=== PATIENT | female | born 1940 | race Caucasian/White ===

== ENCOUNTER 2021-10-28 12:51 | Inpatient (IN) | payer MEDICARE, BC ==
[~2021-10-28] VITALS: Ht 167.6 cm; Wt 80.1 kg
[2021-10-28] MEDS ORDERED: LEVO125T PO (13:23)
[2021-10-28] MEDS ORDERED: CYAN100T44 PO (13:23)
[2021-10-28] MEDS ORDERED: AMIT10TA7 PO (13:23)
[2021-10-28] MEDS ORDERED: SOLI10TA2 PO (13:23)
[2021-10-28] MEDS ORDERED: MV-M1TAB18 PO (13:23)
[2021-10-28] MEDS ORDERED: MIRA50TA PO (13:23)
[2021-10-28] MEDS ORDERED: DONE10TA44 PO (13:23)
[2021-10-28] MEDS ORDERED: ROSU20TA2 PO (13:23)
[2021-10-28] MEDS ORDERED: HYDR12.517 PO (13:23)
[2021-10-28] MEDS ORDERED: INSU100V7 SQ (13:23)
[2021-10-28] MEDS ORDERED: METF-440 PO (13:23)
[2021-10-28] MEDS ORDERED: POTA10CA43 PO (13:23)
[2021-10-28] MEDS ORDERED: VALP250S3 PO (13:23)
[2021-10-28] MEDS ORDERED: CLOP75TA15 PO (13:23)
[2021-10-28] MEDS ORDERED: MEMA10TA PO (13:23)
[2021-10-28] MEDS ORDERED: CIPR-262 PO (13:23)
[2021-10-28] MEDS ORDERED: SITA50TA PO (13:23)
[2021-10-28 14:00] LABS: HEMATOCRIT 36.3 % (31.2-41.9); MEAN CORPUSCULAR HEMOGLOBIN 30.9 uug (24.7-32.8); MEAN CORPUSCULAR VOLUME 89.3 fL (75.5-95.3); PLATELET COUNT (AUTO) 439 K/uL (179-408)
[2021-10-28 14:04] LABS: CREATININE 0.8 mg/dL (0.6-1.3)
[2021-10-28] MEDS ORDERED: IV NORMAL SALINE 1000 ML BAG IV ONE (14:15)
[2021-10-28 14:20] LABS: BILIRUBIN,TOTAL 0.8 mg/dL (0.2-1.0); TOTAL PROTEIN, SERUM 6.9 g/dL (6.4-8.2)
--- NOTE | 2021-10-28 14:50 | NUR ---
Attempted to call spouse, no answer. Left message. Spouse called back. Information collected and forwarded to provider. Pt awakens to command but continues to feel "really tired". Pt saturation decrease on RA. Placed on 2L O2, per provider.
--- NOTE | 2021-10-28 15:32 | NUR ---
Pt responding well to O2, 96% on 2L NC.
[2021-10-28] MEDS ORDERED: LEVOTHYROXINE SODIUM 100 MCG VIAL IV ONE (16:00)
[2021-10-28] MEDS ORDERED: SWABABLE VALVE TRANSFER SET EA MC ONE (16:27)
[2021-10-28] MEDS ORDERED: IV NORMAL SALINE 250 ML IV ONE (16:27)
[2021-10-28] MEDS ORDERED: IOHEXOL 350 100 ML INFUS..BTL ONE (16:27)
[2021-10-28] MEDS ORDERED: PIPERACILLIN SODIUM/TAZOBACTAM 3.375 G in IV DEXTROSE 5% 50 ML IV ONE (16:30)
--- NOTE | 2021-10-28 17:10 | NUR ---
Pt taken for CT scan via gurney by antoni. Pt stable and in no acute distress at this time.
[2021-10-28] MEDS ORDERED: PIPERACILLIN/TAZOBACTAM/D5W 50 ML IV ONE (17:26)
[2021-10-28 17:30] LABS: *BILIRUBIN,URIN NEGATIVE (NEGATIVE); *CLARITY,URINE TURBID (CLEAR); *COLOR,URINE Brown (YELLOW); *KETONES,URINE NEGATIVE (NEGATIVE); *UROBILINOGEN,URINE 0.2 E.U./dl (NORMAL); LEUKOCYTE ESTERASE ,URINE TRACE (NEGATIVE); NITRITE, URINE POSITIVE (NEGATIVE); PH,URINE >=9.0 (5.0-8.0); UGLUCOSE NEGATIVE (NEGATIVE)
[2021-10-28 17:32] LABS: *BLOOD, URINE TRACE (NEGATIVE)
[2021-10-28 18:02] LABS: BACTERIA,URINE MANY /HPF (NONE SEEN); SQUAMOUS EPITHELIAL CELL,UR FEW /HPF (NONE SEEN)
[2021-10-28 18:03] LABS: RBC,URINE 0-3 /HPF (0-3)
[2021-10-28] MEDS: CEFTRIAXONE 1 G in IV DEXTROSE 5% 50 ML IV SCH (20:10)
[2021-10-28] MEDS ORDERED: CEFTRIAXONE /D5W 50ML IVPB **ER PYXIS IV ONE (20:12)
[2021-10-28] MEDS ORDERED: ONDANSETRON 4 MG/2 ML VIAL IV PRN (22:00)
[2021-10-28] MEDS ORDERED: ACETAMINOPHEN 325 MG TABLET PO PRN (22:00)
--- NOTE | 2021-10-29 00:36 | NUR ---
Pt in bed asleep no distress noted
--- NOTE | 2021-10-29 03:52 | NUR ---
Pt awake in bed, no acute distress noted
[2021-10-29 06:19] LABS: HEMATOCRIT 36.7 % (31.2-41.9); MEAN CORPUSCULAR HEMOGLOBIN 30.5 uug (24.7-32.8); MEAN CORPUSCULAR VOLUME 90.1 fL (75.5-95.3); PLATELET COUNT (AUTO) 429 K/uL (179-408)
[2021-10-29 06:52] LABS: BILIRUBIN,TOTAL 0.6 mg/dL (0.2-1.0); CREATININE 0.8 mg/dL (0.6-1.3); MAGNESIUM 2.2 mg/dL (1.8-2.4); PHOSPHOROUS 3.6 mg/dL (2.5-4.9); POTASSIUM 2.9 mmol/L (3.5-5.1); TOTAL PROTEIN, SERUM 6.5 g/dL (6.4-8.2)
[2021-10-29] MEDS: LEVOTHYROXINE SODIUM 125 MCG TABLET PO SCH (07:00)
--- NOTE | 2021-10-29 07:20 | NUR ---
Pt received from bar machine operator production in no acute distress at this time. Pt is awake and aware of self and where she is, unaware of date and situation . Pt needs met.
[2021-10-29 07:29] LABS: THYROID STIMULATING HORMONE 8.54 mIU/mL (0.358-3.740)
[2021-10-29] MEDS ORDERED: CYANOCOBALAMIN 1,000 MCG TABLET ONE (07:49)
[2021-10-29] MEDS: CLOPIDOGREL 75 MG TABLET PO SCH (07:49)
[2021-10-29] MEDS: PANTOPRAZOLE SODIUM 40 MG TABLET.DR PO SCH (07:49)
[2021-10-29] MEDS ORDERED: CLOPIDOGREL 75 MG TABLET ONE (07:50)
[2021-10-29] MEDS ORDERED: PANTOPRAZOLE SODIUM 40 MG TABLET.DR PO ONE (07:50)
[2021-10-29] MEDS ORDERED: POTASSIUM CHLORIDE 10 MEQ TAB.PRT.SR ONE (07:50)
--- NOTE | 2021-10-29 07:53 | NUR ---
Pt was able to swallow PO medications without issue.
[2021-10-29] MEDS: LINAGLIPTIN 5 MG TABLET PO SCH (09:00)
[2021-10-29] MEDS: CHOLECALCIFEROL 1,000 UNIT TABLET PO SCH (09:00)
[2021-10-29] MEDS ORDERED: CYANOCOBALAMIN 100 MCG TABLET PO SCH (09:00)
[2021-10-29] MEDS: OXYBUTYNIN CHLORIDE 5 MG TABLET PO SCH ×3 (09:00→17:50)
[2021-10-29] MEDS: VALPROIC ACID 250 MG/5 ML LIQUID UDC PO SCH ×2 (09:00→21:29)
[2021-10-29] MEDS ORDERED: Medication Not On Formulary EA (Solifenacin Succinate (Vesicare) 1 TAB) PO SCH (09:00)
[2021-10-29] MEDS ORDERED: POTASSIUM CHLORIDE 10 MEQ TAB.PRT.SR PO SCH (09:00)
[2021-10-29] MEDS ORDERED: Medication Not On Formulary EA (Mv-Mn/Iron/FA/Herbal Cmplx#190 (Vitamin D3 Complete Capl PO SCH (09:00)
[2021-10-29] MEDS ORDERED: LEVOTHYROXINE SODIUM 125 MCG TABLET ONE (10:19)
[2021-10-29] MEDS ORDERED: OXYBUTYNIN CHLORIDE 5 MG TABLET ONE ×3 (10:31→17:59)
[2021-10-29] MEDS ORDERED: CHOLECALCIFEROL 1,000 UNIT TABLET ONE (10:31)
--- NOTE | 2021-10-29 10:40 | NUR ---
Spouse is at bedside. Pt refused breakfast tray earlier. Stated wanting to wait for spouse. Spouse at bedside, pt continues to refuse meal. In no acute distress at this time.
[2021-10-29] MEDS ORDERED: METF-494 PO (10:49)
--- NOTE | 2021-10-29 12:00 | NUR ---
recieved pt in bed, pt deneis any complain at this point, no sign of distress, at bedside
[2021-10-29] MEDS: ENOXAPARIN SODIUM 40 MG/0.4 ML DISP.SYRIN SQ SCH (14:49)
[2021-10-29] MEDS ORDERED: ENOXAPARIN SODIUM 40 MG/0.4 ML DISP.SYRIN SQ ONE (14:54)
[2021-10-29] MEDS: POTASSIUM CHLORIDE 20 MEQ POWDER PACKET PO SCH (17:50)
[2021-10-29] MEDS ORDERED: POTASSIUM CHLORIDE 20 MEQ POWDER PACKET ONE (17:59)
[2021-10-29] MEDS ORDERED: Medication Not On Formulary EA (Rosuvastatin Calcium (Crestor) 1 TAB) PO SCH (18:00)
[2021-10-29] MEDS: CEFTRIAXONE 1 G in IV DEXTROSE 5% 50 ML IV SCH (20:22)
[2021-10-29] MEDS ORDERED: CEFTRIAXONE /D5W 50ML IVPB **ER PYXIS IV ONE (20:24)
[2021-10-29] MEDS ORDERED: AMITRIPTYLINE HCL 10 MG TABLET ONE (20:43)
[2021-10-29] MEDS ORDERED: DOCUSATE SODIUM 100 MG CAPSULE PO ONE (20:43)
[2021-10-29] MEDS ORDERED: ATORVASTATIN 40 MG TABLET ONE (20:43)
[2021-10-29] MEDS ORDERED: DOCUSATE SODIUM 250 MG CAPSULE PO SCH (21:00)
[2021-10-29] MEDS: DOCUSATE SODIUM 100 MG CAPSULE PO SCH (21:13)
[2021-10-29] MEDS: AMITRIPTYLINE HCL 10 MG TABLET PO SCH (21:14)
[2021-10-29] MEDS: ATORVASTATIN 40 MG TABLET PO SCH (21:14)
--- NOTE | 2021-10-29 21:58 | NUR ---
GAVE REPORT TO
--- NOTE | 2021-10-29 22:35 | NUR ---
Admitted a 81 years old female with Dx of AMS, TIA and Hypothyroidism. Patient AAox1-2, able to answer simple question. Speech garbled. In no acute distress. Denies any SOB. On O2 at 3LPM via NC in place. O2 sat at 99% during admission. Lung sound diminished. Has pain on left knee with movement that goes away quickly with immobility. Iv site on right AC intact and patent. SR with PAC's on tele with HR of 76/min. Noted with redness on bilateral under breast area, right hip area and sacrum. Routine admission care done. Plan of care initiated. Safety measure initiated and call light within reached. Continue to monitor.
--- NOTE | 2021-10-29 22:42 | NUR ---
Pt. admitted to tele , under care of Dr. Bonilla Belongs List completed
[2021-10-30 00:22] VITALS: BP 130/64
[2021-10-30 04:07] VITALS: BP 146/47
[2021-10-30] MEDS: PANTOPRAZOLE SODIUM 40 MG TABLET.DR PO SCH (06:08)
[2021-10-30] MEDS: LEVOTHYROXINE SODIUM 125 MCG TABLET PO SCH (06:09)
[2021-10-30 06:28] LABS: MEAN CORPUSCULAR VOLUME 89.4 fL (75.5-95.3); PLATELET COUNT (AUTO) 404 K/uL (179-408)
--- NOTE | 2021-10-30 06:30 | NUR ---
Patient slept soundly throughout the night. On 3L nasal cannula saturating 97%. Sinus rhythm with ventricular bigeminy and occasional PAC on tele monitor. Right AC IV intact and patent. No signs of pain or distress. All needs attended to and met. Bed in the lowest position, bed alarm on, call light within reach.
[2021-10-30 07:03] LABS: CREATININE 0.8 mg/dL (0.6-1.3); MAGNESIUM 2.1 mg/dL (1.8-2.4); PHOSPHOROUS 3.3 mg/dL (2.5-4.9); POTASSIUM 3.2 mmol/L (3.5-5.1)
[2021-10-30] MEDS: CHOLECALCIFEROL 1,000 UNIT TABLET PO SCH (08:26)
[2021-10-30] MEDS: CYANOCOBALAMIN 1,000 MCG TABLET PO SCH (08:26)
[2021-10-30] MEDS: LINAGLIPTIN 5 MG TABLET PO SCH (08:26)
[2021-10-30] MEDS: VALPROIC ACID 250 MG/5 ML LIQUID UDC PO SCH ×2 (08:26→20:15)
[2021-10-30] MEDS: OXYBUTYNIN CHLORIDE 5 MG TABLET PO SCH ×3 (08:26→17:37)
[2021-10-30] MEDS: POTASSIUM CHLORIDE 20 MEQ POWDER PACKET PO SCH ×2 (08:26→17:37)
[2021-10-30] MEDS: CLOPIDOGREL 75 MG TABLET PO SCH (08:26)
[2021-10-30] MEDS: ENOXAPARIN SODIUM 40 MG/0.4 ML DISP.SYRIN SQ SCH (08:31)
[2021-10-30] MEDS ORDERED: POTASSIUM CHLORIDE 20 MEQ POWDER PACKET PO ONE (09:30)
[2021-10-30] MEDS: POTASSIUM CHLORIDE 50 ML IV SCH ×2 (11:38→13:02)
[2021-10-30 12:47] VITALS: BP 118/52
--- NOTE | 2021-10-30 15:24 | NUR ---
CAM Clinical Note: Pt reported to CAM that she will not be able to return home to [address] [place] [id number] due to possibly needing more care. Pt reported "No" when asked if her will be able to provide care for her after discharge. Pt reported she will need a nursing facility upon discharge for continuation of care. Pt's is [facility] ([phone]).
[2021-10-30 16:26] VITALS: BP 136/64
[2021-10-30] MEDS ORDERED: METFORMIN HCL 500 MG TABLET PO SCH (18:00)
[2021-10-30] MEDS: METFORMIN XR 500 MG TAB.SR.24H PO SCH (18:00)
--- NOTE | 2021-10-30 18:25 | NUR ---
metformin held, due to patient having a cta on 10/28.
--- NOTE | 2021-10-30 18:35 | NUR ---
relayed message to Padmini Lang of [facility] wanting to speak to him.
--- NOTE | 2021-10-30 19:30 | NUR ---
Received patient in bed. Alert and oriented x1 confused, able to follow commands. On 3L nasal cannula saturating 95%. Sinus rhythm on tele monitor. Right AC IV intact and patent. No signs of pain or distress. Bed in the lowest position, bed alarm on, call light within reach. Will continue to monitor. Addendum: 10/30/21 at 2110 by CHECO JENNINGS RN Patient on Med Surg, off tele monitor
[2021-10-30 20:00] VITALS: BP 106/54
[2021-10-30] MEDS: ATORVASTATIN 40 MG TABLET PO SCH (20:15)
[2021-10-30] MEDS: CEFTRIAXONE 1 G in IV DEXTROSE 5% 50 ML IV SCH (20:15)
[2021-10-30] MEDS: DOCUSATE SODIUM 100 MG CAPSULE PO SCH (20:15)
[2021-10-30] MEDS: AMITRIPTYLINE HCL 10 MG TABLET PO SCH (20:15)
[2021-10-31 04:34] VITALS: BP_SYST 116; BP_SYST 124; BP_DIAS 62; BP_DIAS 74
[2021-10-31] MEDS: PANTOPRAZOLE SODIUM 40 MG TABLET.DR PO SCH (06:00)
[2021-10-31] MEDS: LEVOTHYROXINE SODIUM 125 MCG TABLET PO SCH (06:00)
--- NOTE | 2021-10-31 06:31 | NUR ---
Patient slept well through out the night. Appears comfortable. Denies any pain or SOB. O2 at 3LPM via NC. O2 sat at 94%. Occasional non-productive cough. No adverse effect noted from IV antibiotic. IV site on right AC remains intact and patent. Needs assessed and attended to. Safety measure maintained and call light within reached.
[2021-10-31 06:40] LABS: HEMATOCRIT 33.9 % (31.2-41.9); MEAN CORPUSCULAR HEMOGLOBIN 30.7 uug (24.7-32.8); MEAN CORPUSCULAR VOLUME 90.2 fL (75.5-95.3); PLATELET COUNT (AUTO) 412 K/uL (179-408)
[2021-10-31 07:07] LABS: CREATININE 0.8 mg/dL (0.6-1.3); MAGNESIUM 1.9 mg/dL (1.8-2.4); PHOSPHOROUS 3.1 mg/dL (2.5-4.9); POTASSIUM 3.7 mmol/L (3.5-5.1)
[2021-10-31] MEDS: VALPROIC ACID 250 MG/5 ML LIQUID UDC PO SCH ×2 (08:08→21:00)
[2021-10-31] MEDS: OXYBUTYNIN CHLORIDE 5 MG TABLET PO SCH ×3 (08:08→17:25)
[2021-10-31] MEDS: LINAGLIPTIN 5 MG TABLET PO SCH (08:08)
[2021-10-31] MEDS: POTASSIUM CHLORIDE 20 MEQ POWDER PACKET PO SCH ×2 (08:08→17:25)
[2021-10-31] MEDS: CHOLECALCIFEROL 1,000 UNIT TABLET PO SCH (08:08)
[2021-10-31] MEDS: CYANOCOBALAMIN 1,000 MCG TABLET PO SCH (08:08)
[2021-10-31] MEDS: CLOPIDOGREL 75 MG TABLET PO SCH (08:08)
[2021-10-31] MEDS: ENOXAPARIN SODIUM 40 MG/0.4 ML DISP.SYRIN SQ SCH (08:09)
[2021-10-31] MEDS ORDERED: MEMANTINE HCL 10 MG TABLET PO SCH (10:45)
[2021-10-31 11:00] VITALS: BP 115/68
--- NOTE | 2021-10-31 11:56 | NUR ---
WOUND CARE CONSULT: PT PRESENTS WITH RT HIP BLANCHABLE REDNESS AND SACRAL/BUTTOCK SCARRING WITH INCONTINENCE ASSOCIATED SKIN DAMAGE OVER SCARRING, PRESENT ON ADMISSION. RECOMMENDATIONS MADE FOR SKIN PROTECTION AND CARE. DISCUSSED WITH NURSING STAFF. IN AGREEMENT WITH PLAN OF CARE. Addendum: 10/31/21 at 1157 by DOUGLAS PINON RN Amended: Links added.
[2021-10-31] MEDS ORDERED: REMEDY ESSENTIAL ZINC PASTE 113 GM TOP PRN (12:00)
--- NOTE | 2021-10-31 16:11 | NUR ---
REQUESTED NEURO CONSULT AND HIP XRAY, HERBERT FOREMAN MADE AWARE, WITH NEW ORDER FOR NEURO CONSULT AND HIP XRAY, NOTED AND CARRIED OUT.
[2021-10-31 17:10] VITALS: BP 107/86
[2021-10-31] MEDS: MEMANTINE HCL 10 MG TABLET PO SCH (17:25)
[2021-10-31] MEDS: DONEPEZIL 10 MG TABLET PO SCH (17:26)
[2021-10-31] MEDS: METFORMIN XR 500 MG TAB.SR.24H PO SCH (18:05)
--- NOTE | 2021-10-31 19:30 | NUR ---
Received patient asleep in bed. Hard to arouse at this time. Appears calm and comfortable. In no apparent distress. On O2 at 3LPM via NC in place. O2 sat at 94% at this time. IV site on right AC intact and patent. Needs assessed and anticipated to. Safety measure initiated and call light within reached.
[2021-10-31] MEDS: CEFTRIAXONE 1 G in IV DEXTROSE 5% 50 ML IV SCH (19:59)
[2021-10-31 20:00] VITALS: BP 110/55
[2021-10-31] MEDS: DOCUSATE SODIUM 100 MG CAPSULE PO SCH (21:00)
[2021-10-31] MEDS: QUETIAPINE FUMARATE 25 MG TABLET PO SCH (21:00)
[2021-10-31] MEDS: AMITRIPTYLINE HCL 10 MG TABLET PO SCH (21:00)
[2021-10-31] MEDS: ATORVASTATIN 40 MG TABLET PO SCH (21:00)
[2021-10-31] MEDS: REMEDY ESSENTIAL ZINC PASTE 113 GM TOP SCH (21:53)
--- NOTE | 2021-10-31 21:53 | NUR ---
Patient still very sleepy. Arouse to painful stimuli but goes back to sleep right away. Unable to take due meds for tonight.
[2021-11-01 04:00] VITALS: BP 130/62
[2021-11-01] MEDS: PANTOPRAZOLE SODIUM 40 MG TABLET.DR PO SCH (06:23)
[2021-11-01] MEDS: LEVOTHYROXINE SODIUM 125 MCG TABLET PO SCH (06:23)
--- NOTE | 2021-11-01 06:32 | NUR ---
Patient slept through out the night. Easily arouseable this morning. Verbal and able to follow commands. In no apparent distress. O2 sat at 95%. No adverse effect noted from IV antibiotics.
[2021-11-01 07:45] LABS: HEMATOCRIT 36.5 % (31.2-41.9); MEAN CORPUSCULAR VOLUME 90.5 fL (75.5-95.3); PLATELET COUNT (AUTO) 408 K/uL (179-408)
[2021-11-01] MEDS: POTASSIUM CHLORIDE 20 MEQ POWDER PACKET PO SCH ×2 (08:51→17:30)
[2021-11-01] MEDS: VALPROIC ACID 250 MG/5 ML LIQUID UDC PO SCH ×2 (08:51→20:03)
[2021-11-01] MEDS: MEMANTINE HCL 10 MG TABLET PO SCH ×2 (08:52→17:30)
[2021-11-01] MEDS: LINAGLIPTIN 5 MG TABLET PO SCH (08:52)
[2021-11-01] MEDS: CYANOCOBALAMIN 1,000 MCG TABLET PO SCH (08:52)
[2021-11-01] MEDS: CLOPIDOGREL 75 MG TABLET PO SCH (08:52)
[2021-11-01] MEDS: OXYBUTYNIN CHLORIDE 5 MG TABLET PO SCH ×3 (08:52→17:30)
[2021-11-01] MEDS: CHOLECALCIFEROL 1,000 UNIT TABLET PO SCH (08:52)
[2021-11-01] MEDS: REMEDY ESSENTIAL ZINC PASTE 113 GM TOP SCH ×2 (08:53→20:03)
[2021-11-01 09:00] LABS: CREATININE 0.8 mg/dL (0.6-1.3); MAGNESIUM 2.4 mg/dL (1.8-2.4); PHOSPHOROUS 3.5 mg/dL (2.5-4.9); POTASSIUM 3.6 mmol/L (3.5-5.1)
[2021-11-01] MEDS: ENOXAPARIN SODIUM 40 MG/0.4 ML DISP.SYRIN SQ SCH (09:04)
[2021-11-01 11:25] VITALS: BP 115/62
[2021-11-01 15:21] VITALS: BP 130/53
[2021-11-01] MEDS: DONEPEZIL 10 MG TABLET PO SCH (17:30)
[2021-11-01] MEDS: METFORMIN XR 500 MG TAB.SR.24H PO SCH (17:41)
[2021-11-01] MEDS: CEFTRIAXONE 1 G in IV DEXTROSE 5% 50 ML IV SCH (19:50)
--- NOTE | 2021-11-01 20:00 | NUR ---
NSG; Received patient lying in bed. Alert and oriented x1 confused, able to follow commands. On 3L nasal cannula saturating 96%. Right AC IV intact and patent. No signs of pain or distress. NO sob noted. Bed in the lowest position, bed alarm on, call light within reach. Will continue to monitor.
[2021-11-01] MEDS: QUETIAPINE FUMARATE 25 MG TABLET PO SCH (20:02)
[2021-11-01] MEDS: AMITRIPTYLINE HCL 10 MG TABLET PO SCH (20:02)
[2021-11-01] MEDS: ATORVASTATIN 40 MG TABLET PO SCH (20:02)
[2021-11-01] MEDS: DOCUSATE SODIUM 100 MG CAPSULE PO SCH (20:15)
[2021-11-01 20:38] VITALS: BP 100/57
[2021-11-02 04:52] VITALS: BP 134/40
--- NOTE | 2021-11-02 05:26 | NUR ---
NSG; Patient slept well through the night. Denies any pain or SOB. O2 at 3LPM via NC. O2 sat at 96%. No adverse effect noted from IV antibiotic. IV site on right not working. midline placement ordered.Needs assessed and attended to. Safety measure maintained and call light within reached.
[2021-11-02] MEDS: PANTOPRAZOLE SODIUM 40 MG TABLET.DR PO SCH (06:00)
[2021-11-02] MEDS: LEVOTHYROXINE SODIUM 125 MCG TABLET PO SCH (06:00)
--- NOTE | 2021-11-02 06:01 | NUR ---
patient c/o gen: pain. tylenol 650 mg po given.
[2021-11-02 08:11] LABS: HEMATOCRIT 36.2 % (31.2-41.9); MEAN CORPUSCULAR HEMOGLOBIN 30.8 uug (24.7-32.8); MEAN CORPUSCULAR VOLUME 90.7 fL (75.5-95.3); PLATELET COUNT (AUTO) 433 K/uL (179-408)
[2021-11-02 08:20] LABS: CREATININE 0.9 mg/dL (0.6-1.3); MAGNESIUM 2.2 mg/dL (1.8-2.4); PHOSPHOROUS 3.4 mg/dL (2.5-4.9); POTASSIUM 3.2 mmol/L (3.5-5.1)
[2021-11-02] MEDS: POTASSIUM CHLORIDE 20 MEQ POWDER PACKET PO SCH ×2 (08:40→17:08)
[2021-11-02] MEDS: CLOPIDOGREL 75 MG TABLET PO SCH (08:40)
[2021-11-02] MEDS: LINAGLIPTIN 5 MG TABLET PO SCH (08:40)
[2021-11-02] MEDS: VALPROIC ACID 250 MG/5 ML LIQUID UDC PO SCH ×2 (08:40→21:13)
[2021-11-02] MEDS: OXYBUTYNIN CHLORIDE 5 MG TABLET PO SCH ×3 (08:41→17:07)
[2021-11-02] MEDS: MEMANTINE HCL 10 MG TABLET PO SCH ×2 (08:41→17:07)
[2021-11-02] MEDS: CYANOCOBALAMIN 1,000 MCG TABLET PO SCH (08:41)
[2021-11-02] MEDS: CHOLECALCIFEROL 1,000 UNIT TABLET PO SCH (08:41)
[2021-11-02] MEDS: REMEDY ESSENTIAL ZINC PASTE 113 GM TOP SCH ×2 (08:42→21:14)
[2021-11-02] MEDS: ENOXAPARIN SODIUM 40 MG/0.4 ML DISP.SYRIN SQ SCH (08:42)
[2021-11-02] MEDS ORDERED: POTASSIUM CHLORIDE 20 MEQ TAB.PRT.SR PO ONE (09:15)
[2021-11-02] MEDS ORDERED: POTASSIUM CHLORIDE 20 MEQ POWDER PACKET PO ONE ×2 (09:30)
[2021-11-02 11:26] VITALS: BP 108/67
--- NOTE | 2021-11-02 14:19 | NUR ---
Received patient sleeping in her room. A/O X 1 -2 to person. Pt. is forgetful, confused, cooperative. Compliant with medication. Incontinent. Total care. Cardiac diet. Redness on buttocks, cream barrier applied as prescribed. Fall and safety precautions implemented.
[2021-11-02 15:06] VITALS: BP 103/59
--- NOTE | 2021-11-02 15:33 | NUR ---
Iam started IV midline in patient right upper arm.
[2021-11-02] MEDS: METFORMIN XR 500 MG TAB.SR.24H PO SCH (17:07)
[2021-11-02] MEDS: DONEPEZIL 10 MG TABLET PO SCH (17:07)
[2021-11-02] MEDS: ATORVASTATIN 40 MG TABLET PO SCH (21:13)
[2021-11-02] MEDS: DOCUSATE SODIUM 100 MG CAPSULE PO SCH (21:13)
[2021-11-02] MEDS: CEFTRIAXONE 1 G in IV DEXTROSE 5% 50 ML IV SCH (21:13)
[2021-11-02] MEDS: QUETIAPINE FUMARATE 25 MG TABLET PO SCH (21:13)
[2021-11-02] MEDS: AMITRIPTYLINE HCL 10 MG TABLET PO SCH (21:13)
[2021-11-02 21:55] VITALS: BP 102/52
--- NOTE | 2021-11-03 05:28 | NUR ---
Pt had fall at beginning of shift before this nurse got report for patient from the day shift. Pt was assessed and there were no injuries found. Nursing Manager Of Program Arelis notified and Padmini Rea MARINE FITTER notified with no new orders. Pt is awake and anxious and confused. Denies pain. No distress noted. IV site intact. Will endorse to day shift.
[2021-11-03 05:34] VITALS: BP 120/55
[2021-11-03] MEDS: PANTOPRAZOLE SODIUM 40 MG TABLET.DR PO SCH (06:35)
[2021-11-03] MEDS: LEVOTHYROXINE SODIUM 125 MCG TABLET PO SCH (06:35)
[2021-11-03 08:09] LABS: HEMATOCRIT 37.8 % (31.2-41.9); MEAN CORPUSCULAR HEMOGLOBIN 30.2 uug (24.7-32.8); MEAN CORPUSCULAR VOLUME 91.5 fL (75.5-95.3); PLATELET COUNT (AUTO) 430 K/uL (179-408)
[2021-11-03 08:33] LABS: CREATININE 0.8 mg/dL (0.6-1.3); MAGNESIUM 2.3 mg/dL (1.8-2.4); PHOSPHOROUS 3.4 mg/dL (2.5-4.9); POTASSIUM 3.3 mmol/L (3.5-5.1)
[2021-11-03] MEDS: VALPROIC ACID 250 MG/5 ML LIQUID UDC PO SCH ×2 (08:56→20:15)
[2021-11-03] MEDS: CHOLECALCIFEROL 1,000 UNIT TABLET PO SCH (08:56)
[2021-11-03] MEDS: CYANOCOBALAMIN 1,000 MCG TABLET PO SCH (08:56)
[2021-11-03] MEDS: POTASSIUM CHLORIDE 20 MEQ POWDER PACKET PO SCH ×2 (08:57→17:02)
[2021-11-03] MEDS: OXYBUTYNIN CHLORIDE 5 MG TABLET PO SCH ×3 (08:57→17:02)
[2021-11-03] MEDS: CLOPIDOGREL 75 MG TABLET PO SCH (08:57)
[2021-11-03] MEDS: MEMANTINE HCL 10 MG TABLET PO SCH ×2 (08:58→17:02)
[2021-11-03] MEDS: LINAGLIPTIN 5 MG TABLET PO SCH (08:58)
--- NOTE | 2021-11-03 09:00 | NUR ---
pt tolerating o2 at r/a with saturation of 96%. PT denies any c/o pain. Pt alert x [address] reorient patient to time. Right upper midline intact. Aspiration precaution implemented.
[2021-11-03] MEDS: ENOXAPARIN SODIUM 40 MG/0.4 ML DISP.SYRIN SQ SCH (09:05)
[2021-11-03] MEDS: REMEDY ESSENTIAL ZINC PASTE 113 GM TOP SCH ×2 (09:06→20:28)
[2021-11-03 11:11] VITALS: BP 105/47
[2021-11-03] MEDS ORDERED: POTASSIUM CHLORIDE 20 MEQ POWDER PACKET PO ONE (12:00)
[2021-11-03 15:09] VITALS: BP 117/58
[2021-11-03] MEDS: DONEPEZIL 10 MG TABLET PO SCH (17:02)
[2021-11-03] MEDS: METFORMIN XR 500 MG TAB.SR.24H PO SCH (17:04)
[2021-11-03] MEDS: GLUCERNA SHAKE VANILLA 237 ML CAN PO SCH (17:06)
--- NOTE | 2021-11-03 18:54 | NUR ---
Noted that pt coughs after drinking water with straws x 2 episodes even with proper aspiration precaution. Will endorse to next shift not to use straws.
[2021-11-03] MEDS: ATORVASTATIN 40 MG TABLET PO SCH (20:15)
[2021-11-03] MEDS: AMITRIPTYLINE HCL 10 MG TABLET PO SCH (20:15)
[2021-11-03] MEDS: DOCUSATE SODIUM 100 MG CAPSULE PO SCH (20:15)
[2021-11-03] MEDS: QUETIAPINE FUMARATE 25 MG TABLET PO SCH (20:15)
[2021-11-03 21:38] VITALS: BP 121/63
[2021-11-04 04:15] VITALS: BP 122/66
[2021-11-04] MEDS: LEVOTHYROXINE SODIUM 125 MCG TABLET PO SCH (06:09)
[2021-11-04] MEDS: PANTOPRAZOLE SODIUM 40 MG TABLET.DR PO SCH (06:09)
--- NOTE | 2021-11-04 07:01 | NUR ---
AO x 1, to name. Needs to be reoriented. Confused and forgetful. Able to verbalize needs. On room air saturating at 99%. No signs of acute distress. Medication crushed and given. Aspiration precautions. Compliant with medication regimen. MOISES midline intact and patent. Safety measures maintained. Will endorse to am shift.
[2021-11-04 07:10] LABS: HEMATOCRIT 36.4 % (31.2-41.9); MEAN CORPUSCULAR HEMOGLOBIN 30.4 uug (24.7-32.8); MEAN CORPUSCULAR VOLUME 91.6 fL (75.5-95.3); PLATELET COUNT (AUTO) 482 K/uL (179-408)
[2021-11-04 07:31] LABS: CREATININE 0.8 mg/dL (0.6-1.3)
[2021-11-04 07:55] LABS: MAGNESIUM 2.3 mg/dL (1.8-2.4); PHOSPHOROUS 3.3 mg/dL (2.5-4.9)
[2021-11-04] MEDS: POTASSIUM CHLORIDE 20 MEQ POWDER PACKET PO SCH (09:00)
[2021-11-04] MEDS: CLOPIDOGREL 75 MG TABLET PO SCH (09:13)
[2021-11-04] MEDS: LINAGLIPTIN 5 MG TABLET PO SCH (09:13)
[2021-11-04] MEDS: MEMANTINE HCL 10 MG TABLET PO SCH ×2 (09:13→16:37)
[2021-11-04] MEDS: VALPROIC ACID 250 MG/5 ML LIQUID UDC PO SCH (09:13)
[2021-11-04] MEDS: OXYBUTYNIN CHLORIDE 5 MG TABLET PO SCH ×3 (09:13→16:37)
[2021-11-04] MEDS: GLUCERNA SHAKE VANILLA 237 ML CAN PO SCH ×3 (09:14→16:38)
[2021-11-04] MEDS: CYANOCOBALAMIN 1,000 MCG TABLET PO SCH (09:14)
[2021-11-04] MEDS: CHOLECALCIFEROL 1,000 UNIT TABLET PO SCH (09:14)
[2021-11-04] MEDS: REMEDY ESSENTIAL ZINC PASTE 113 GM TOP SCH (09:15)
[2021-11-04] MEDS: ENOXAPARIN SODIUM 40 MG/0.4 ML DISP.SYRIN SQ SCH (09:18)
--- NOTE | 2021-11-04 10:00 | NUR ---
Padmini saw patient awaiting response for ARU bed placement coordinator Marques ISSA if patient is accepted. PT denies any c/o pain. Call light is within reach.
[2021-11-04] MEDS ORDERED: QUETIAPINE FUMARATE 25 MG TABLET PO PRN (11:00)
[2021-11-04 11:51] VITALS: BP 116/53
[2021-11-04] MEDS ORDERED: NUT.237L28 PO (15:54)
[2021-11-04] MEDS ORDERED: ENOX40DI SQ (15:54)
[2021-11-04] MEDS ORDERED: DOCU-141 PO (15:54)
[2021-11-04] MEDS ORDERED: QUET25TA36 PO (15:54)
[2021-11-04 16:03] VITALS: BP 118/60
[2021-11-04] MEDS: METFORMIN XR 500 MG TAB.SR.24H PO SCH (16:37)
[2021-11-04] MEDS: DONEPEZIL 10 MG TABLET PO SCH (16:37)
--- NOTE | 2021-11-04 17:37 | NUR ---
Discussed discharge instructions to [facility]. Verbalized understanding. Discussed new medications that is prescribed. Follow up with primary doctor within 1 week. Pt to transfer ARU encdinorah Pt is to f/u vaccinations with her primary. PT is in no acute distress. Call light is within reach. Picture updated.
[2021-11-04] MEDS ORDERED: CHOL400C8 (21:56)
[2021-11-04] MEDS ORDERED: LINA5TAB PO (21:56)
[2021-11-04] MEDS ORDERED: ACET-2154 PO (21:56)
[2021-11-04] MEDS ORDERED: PETR113P TP (21:56)
[2021-11-04] MEDS ORDERED: OXYB5TAB16 PO (21:56)
[2021-11-04] MEDS ORDERED: PANT40TA2 PO (21:56)
[2021-11-04] MEDS ORDERED: ATOR40TA PO (21:56)
== END 2021-11-04 19:34 | DRG 689 ==
LOC: ER 12:51 → TRANSITION 10-29 09:28 → TELE3 10-29 22:05 → MEDSURG3 10-30 13:19
PROVIDERS: ADMIT Internal Medicine; ATTEND Nurse Practitioner Acute Care
PROC: 05H933Z Insertion of Infusion Device into Right Brachial Vein, Percutaneous Approach (ICD-10-PCS; principal; 2021-11-02)
DX: N39.0 Urinary tract infection, site not specified (principal); G93.41 Metabolic encephalopathy; E43 Unspecified severe protein-calorie malnutrition; D68.59 Other primary thrombophilia; F05 Delirium due to known physiological condition; E87.6 Hypokalemia; F01.50 Vascular dementia, unspecified severity, without behavioral disturbance, psychotic disturbance, mood disturbance, and anxiety; I69.398 Other sequelae of cerebral infarction; D75.839 Thrombocytosis, unspecified; Z87.440 Personal history of urinary (tract) infections; E03.9 Hypothyroidism, unspecified; E11.9 Type 2 diabetes mellitus without complications; E66.9 Obesity, unspecified; Z68.30 Body mass index [BMI] 30.0-30.9, adult; E78.5 Hyperlipidemia, unspecified; J44.9 Chronic obstructive pulmonary disease, unspecified; M16.11 Unilateral primary osteoarthritis, right hip; G89.29 Other chronic pain; I67.2 Cerebral atherosclerosis; J39.8 Other specified diseases of upper respiratory tract; G93.89 Other specified disorders of brain; I25.2 Old myocardial infarction; I49.3 Ventricular premature depolarization; Q24.8 Other specified congenital malformations of heart; Z20.822 Contact with and (suspected) exposure to COVID-19; Z79.4 Long term (current) use of insulin; Z79.84 Long term (current) use of oral hypoglycemic drugs; Z87.891 Personal history of nicotine dependence; K59.00 Constipation, unspecified
CPT/HCPCS: 36415; 51702; 70030-TC; 70450; 70551; 71045; 71275; 73521; 76775; 83605; 83735; 84100; 84443; 85025; 85730; 87040; 87086; 93005; 93307; 93880; 97161; A6209; G0378; J0696; J1650; J2543; J3480; J7030; J7040; J7050; J7060; Q9967

== ENCOUNTER 2021-11-04 19:52 | Inpatient (IN) | payer MEDICARE, BC ==
[~2021-11-04] VITALS: Ht 167.6 cm; Wt 80.3 kg
--- NOTE | 2021-11-04 19:30 | NUR ---
RECEIVED PATIENT AWAKE IN BED. PATIENT DISCHARGED AND RE-ADMITTED INPATIENT REHAB. PATIENT IS ALERT TO SELF. CONFUSED AND DISORIENTED AND NEEDS FREQUENT REDIRECTION. DENIES ANY PAIN OR DISCOMFORT. NO RESP. DISTRESS NOTED. MID-LINE NOTED TO RIGHT UPPER ARM, INTACT. VS WNL. BED ALARM ON. CALL LIGHT IN REACH. ALL NEEDS ATTENDED. WILL CONTINUE TO MONITOR AND ASSESS.
[~2021-11-04 19:52] MED LIST: AMIT10TA7 PO; CIPR-262 PO; CLOP75TA15 PO; CYAN100T44 PO; DOCU-141 PO; DONE10TA44 PO; ENOX40DI SQ; HYDR12.517 PO; INSU100V7 SQ; LEVO125T PO; MEMA10TA PO; METF-440 PO; METF-494 PO; MIRA50TA PO; MV-M1TAB18 PO; NUT.237L28 PO; POTA10CA43 PO; QUET25TA36 PO; ROSU20TA2 PO; SITA50TA PO; SOLI10TA2 PO; VALP250S3 PO
[2021-11-04 20:00] VITALS: BP_SYST 110; BP_SYST 128; BP_DIAS 49; BP_DIAS 59
[2021-11-04] MEDS ORDERED: CHOL400C8 (21:56)
[2021-11-04] MEDS ORDERED: ACET-2154 PO (21:56)
[2021-11-04] MEDS ORDERED: PETR113P TP (21:56)
[2021-11-04] MEDS ORDERED: ATOR40TA PO (21:56)
[2021-11-04] MEDS ORDERED: PANT40TA2 PO (21:56)
[2021-11-04] MEDS ORDERED: OXYB5TAB16 PO (21:56)
[2021-11-04] MEDS ORDERED: LINA5TAB PO (21:56)
[2021-11-05 04:00] VITALS: BP 122/71
[2021-11-05] MEDS ORDERED: QUETIAPINE FUMARATE 25 MG TABLET PO PRN (10:00)
[2021-11-05 12:00] VITALS: BP 107/72
[2021-11-05] MEDS: OXYBUTYNIN CHLORIDE 5 MG TABLET PO SCH ×2 (12:30→17:41)
[2021-11-05] MEDS: GLUCERNA SHAKE VANILLA 237 ML CAN PO SCH ×2 (12:30→17:41)
[2021-11-05 16:00] VITALS: BP 115/52
[2021-11-05] MEDS: AMITRIPTYLINE HCL 10 MG TABLET PO SCH (17:41)
[2021-11-05] MEDS: MEMANTINE HCL 10 MG TABLET PO SCH (17:41)
[2021-11-05] MEDS: DONEPEZIL 10 MG TABLET PO SCH (17:41)
[2021-11-05] MEDS: VALPROIC ACID 250 MG CAPSULE PO SCH (17:42)
--- NOTE | 2021-11-05 18:57 | NUR ---
The patient remained stable. no distress identified. no pain identified. turn and repositioned. kept call light within reach. all needs attended. all due meds given. will endorse to the next shift for continuity of care.
[2021-11-05 20:00] VITALS: BP 126/67
[2021-11-05] MEDS: DOCUSATE SODIUM 100 MG CAPSULE PO SCH (20:50)
[2021-11-05] MEDS: ATORVASTATIN 40 MG TABLET PO SCH (20:51)
[2021-11-05] MEDS ORDERED: ATORVASTATIN 20 MG TABLET PO SCH (21:00)
[2021-11-06 04:00] VITALS: BP_SYST 115; BP_SYST 117; BP_DIAS 48; BP_DIAS 60
--- NOTE | 2021-11-06 04:06 | NUR ---
Resting in bed upon initial rounds. AAOx1-2 Patient diagnosis was acute metabolic Encepalopthy. VSS. Needs attended. Right upper midline intact flush and patient. Will monitor patient.
[2021-11-06 06:50] LABS: HEMATOCRIT 39.4 % (31.2-41.9); MEAN CORPUSCULAR HEMOGLOBIN 30.2 uug (24.7-32.8); MEAN CORPUSCULAR VOLUME 91.4 fL (75.5-95.3); PLATELET COUNT (AUTO) 472 K/uL (179-408)
[2021-11-06] MEDS ORDERED: LEVOTHYROXINE SODIUM 125 MCG TABLET PO SCH (07:00)
[2021-11-06 07:47] LABS: BILIRUBIN,TOTAL 0.6 mg/dL (0.2-1.0); CREATININE 0.9 mg/dL (0.6-1.3); MAGNESIUM 2.1 mg/dL (1.8-2.4); PHOSPHOROUS 3.8 mg/dL (2.5-4.9); POTASSIUM 3.1 mmol/L (3.5-5.1); TOTAL PROTEIN, SERUM 7.1 g/dL (6.4-8.2)
[2021-11-06 08:00] VITALS: BP 102/60
--- NOTE | 2021-11-06 08:00 | NUR ---
Pt received resting in bed, A/O x2. Pt appears withdrawn and quiet. pt was compliant with her medications, denies pain or distress. Pt is able to state her needs. side rails are up, pt appears comfortable.
[2021-11-06 08:20] LABS: THYROID STIMULATING HORMONE 14.353 mIU/mL (0.358-3.740)
[2021-11-06] MEDS ORDERED: POTASSIUM CHLORIDE 20 MEQ TAB.PRT.SR PO ONE (08:45)
[2021-11-06] MEDS ORDERED: POTASSIUM CHLORIDE 20 MEQ POWDER PACKET PO ONE (09:00)
[2021-11-06] MEDS ORDERED: Medication Not On Formulary EA (Mirabegron (Myrbetriq) 50 MG) PO SCH (09:00)
[2021-11-06] MEDS ORDERED: Medication Not On Formulary EA (Mv-Mn/Iron/FA/Herbal Cmplx#190 (Vitamin D3 Complete Capl PO SCH (09:00)
[2021-11-06] MEDS ORDERED: Medication Not On Formulary EA (Solifenacin Succinate (Vesicare) 1 TAB) PO SCH (09:00)
[2021-11-06] MEDS ORDERED: MEMANTINE HCL 10 MG TABLET PO SCH (09:00)
[2021-11-06] MEDS ORDERED: [UNRECOGNIZED DRUG - OTHER] PO SCH (09:00)
[2021-11-06] MEDS ORDERED: MYRBETRIQ 50 MG PO SCH (09:00)
[2021-11-06] MEDS ORDERED: [UNRECOGNIZED DRUG - OTHER] PO SCH (09:00)
[2021-11-06] MEDS ORDERED: SOLIFENACIN 10 MG PO SCH (09:00)
[2021-11-06] MEDS: CLOPIDOGREL 75 MG TABLET PO SCH (09:32)
[2021-11-06] MEDS: OXYBUTYNIN CHLORIDE 5 MG TABLET PO SCH ×3 (09:32→18:13)
[2021-11-06] MEDS: MULTIVIT, IRON, MIN NO. 8, FA TABLET PO SCH (09:32)
[2021-11-06] MEDS: MEMANTINE HCL 10 MG TABLET PO SCH ×2 (09:32→18:13)
[2021-11-06] MEDS: PANTOPRAZOLE SODIUM 40 MG TABLET.DR PO SCH (09:32)
[2021-11-06] MEDS: METFORMIN XR 500 MG TAB.SR.24H PO SCH (09:33)
[2021-11-06] MEDS: VALPROIC ACID 250 MG CAPSULE PO SCH ×2 (09:33→18:13)
[2021-11-06] MEDS: GLUCERNA SHAKE VANILLA 237 ML CAN PO SCH ×3 (09:39→17:00)
[2021-11-06] MEDS: LINAGLIPTIN 5 MG TABLET PO SCH (09:39)
[2021-11-06] MEDS: ENOXAPARIN SODIUM 40 MG/0.4 ML DISP.SYRIN SQ SCH (09:42)
[2021-11-06] MEDS: CYANOCOBALAMIN 1,000 MCG TABLET PO SCH (09:56)
[2021-11-06 16:00] VITALS: BP 117/47
[2021-11-06] MEDS: DONEPEZIL 10 MG TABLET PO SCH (18:13)
[2021-11-06] MEDS: AMITRIPTYLINE HCL 10 MG TABLET PO SCH (18:13)
--- NOTE | 2021-11-06 19:45 | NUR ---
Received patient lying in bed. AAOX2. Appears withdrawn. Reoriented patient accordingly. Patient denies SOB, chest pain or dizziness. Safety measures initiated. Call light button and frequently used items within reach. Will continue to monitor.
[2021-11-06 20:00] VITALS: BP 104/52
[2021-11-06] MEDS: DOCUSATE SODIUM 100 MG CAPSULE PO SCH (20:14)
[2021-11-06] MEDS: ATORVASTATIN 40 MG TABLET PO SCH (20:14)
[2021-11-07 04:00] VITALS: BP 105/69
[2021-11-07] MEDS: LEVOTHYROXINE SODIUM 150 MCG TABLET PO SCH (06:11)
--- NOTE | 2021-11-07 07:06 | NUR ---
Patient slept through the night with no complaints. No acute distress noted at this time. Patient is compliant with medication regimen. Safety measures maintained. Will endorse to dayshift.
[2021-11-07 08:00] VITALS: BP 105/69
[2021-11-07] MEDS: MEMANTINE HCL 10 MG TABLET PO SCH ×2 (08:41→17:18)
[2021-11-07] MEDS: MULTIVIT, IRON, MIN NO. 8, FA TABLET PO SCH (08:41)
[2021-11-07] MEDS: CLOPIDOGREL 75 MG TABLET PO SCH (08:41)
[2021-11-07] MEDS: PANTOPRAZOLE SODIUM 40 MG TABLET.DR PO SCH (08:41)
[2021-11-07] MEDS: CYANOCOBALAMIN 1,000 MCG TABLET PO SCH (08:42)
[2021-11-07] MEDS: OXYBUTYNIN CHLORIDE 5 MG TABLET PO SCH ×3 (08:42→17:18)
[2021-11-07] MEDS: GLUCERNA SHAKE VANILLA 237 ML CAN PO SCH ×3 (08:46→17:19)
[2021-11-07] MEDS: VALPROIC ACID 250 MG CAPSULE PO SCH ×2 (08:50→17:18)
[2021-11-07] MEDS: METFORMIN XR 500 MG TAB.SR.24H PO SCH (08:51)
[2021-11-07] MEDS: ENOXAPARIN SODIUM 40 MG/0.4 ML DISP.SYRIN SQ SCH (08:52)
[2021-11-07] MEDS ORDERED: LORAZEPAM 0.5 MG TABLET PO PRN (09:00)
[2021-11-07] MEDS: LINAGLIPTIN 5 MG TABLET PO SCH (09:32)
--- NOTE | 2021-11-07 09:35 | NUR ---
Received patient lying in bed. AAOX2. calm, reoriented patient accordingly. Patient respirations even and unlabored no SOB noted, no c/o of chest pain or dizziness. at bed side .Safety measures in place. Call light button and frequently used items within reach bed in lowest position . Will continue to monitor.
--- NOTE | 2021-11-07 15:14 | NUR ---
INDIVIDUALIZED PLAN OF CARE
[2021-11-07] MEDS: AMITRIPTYLINE HCL 10 MG TABLET PO SCH (17:22)
[2021-11-07] MEDS: DONEPEZIL 10 MG TABLET PO SCH (17:22)
[2021-11-07 17:35] VITALS: BP 127/63
[2021-11-07 20:00] VITALS: BP 114/48
[2021-11-07] MEDS: ATORVASTATIN 40 MG TABLET PO SCH (20:40)
[2021-11-07] MEDS: DOCUSATE SODIUM 100 MG CAPSULE PO SCH (20:40)
[2021-11-08 04:00] VITALS: BP 118/57
--- NOTE | 2021-11-08 05:57 | NUR ---
Patient slept comfortably throughout the night. Alert and oriented to name, forgetful and confused at times. Becomes anxious and asks about daughter and , needs to be reoriented. Able to make needs known. On room air saturating at 95%. No signs of acute distress noted. Denies any pain or discomfort. Call lights within reach. Safety measures maintained. Will endorse to am nurse for continuity of care.
[2021-11-08] MEDS: LEVOTHYROXINE SODIUM 150 MCG TABLET PO SCH (06:16)
[2021-11-08 08:00] VITALS: BP 105/66
[2021-11-08] MEDS: CYANOCOBALAMIN 1,000 MCG TABLET PO SCH (09:00)
[2021-11-08] MEDS: MULTIVIT, IRON, MIN NO. 8, FA TABLET PO SCH (09:38)
[2021-11-08] MEDS: OXYBUTYNIN CHLORIDE 5 MG TABLET PO SCH ×3 (09:39→17:00)
[2021-11-08] MEDS: PANTOPRAZOLE SODIUM 40 MG TABLET.DR PO SCH (09:39)
[2021-11-08] MEDS: MEMANTINE HCL 10 MG TABLET PO SCH ×2 (09:39→16:56)
[2021-11-08] MEDS: LINAGLIPTIN 5 MG TABLET PO SCH (09:39)
[2021-11-08] MEDS: ENOXAPARIN SODIUM 40 MG/0.4 ML DISP.SYRIN SQ SCH (09:40)
[2021-11-08] MEDS: CLOPIDOGREL 75 MG TABLET PO SCH (09:41)
[2021-11-08] MEDS: VALPROIC ACID 250 MG CAPSULE PO SCH ×2 (09:41→16:58)
[2021-11-08] MEDS: METFORMIN XR 500 MG TAB.SR.24H PO SCH (09:42)
[2021-11-08] MEDS: GLUCERNA SHAKE VANILLA 237 ML CAN PO SCH ×3 (09:44→16:57)
[2021-11-08] MEDS: ACETAMINOPHEN 325 MG TABLET PO PRN (09:49)
--- NOTE | 2021-11-08 12:16 | NUR ---
Pt is a/ox 2-3, family at bedside. Pt walked woith PT to bathroom this am, tolerated fairly. Held morning vitamin b12 due to elevated lab values of b12. Comfort measures provided, call light within reach, will continue to monitor.
--- NOTE | 2021-11-08 13:30 | NUR ---
patient able to demo decreased assist with all mobility using fww. pt safe for bathroom transfers with fww and nursing assist as tolerated.
[2021-11-08 16:02] VITALS: BP 151/64
[2021-11-08] MEDS: AMITRIPTYLINE HCL 10 MG TABLET PO SCH (17:10)
[2021-11-08] MEDS: DONEPEZIL 10 MG TABLET PO SCH (17:10)
[2021-11-08] MEDS: diphenhydrAMINE 25 MG CAP PO PRN (17:24)
--- NOTE | 2021-11-08 18:18 | NUR ---
Pt complained of itchiness, family suspects it may be from Ditropan since it is the only new medication that she does not take at home. Notified MD, obtained order for benadryl and held 1700 dose of Ditropan per MD order. Notified family of changes and will endorse to valerio shaikh to monitor.
[2021-11-08 20:00] VITALS: BP 153/63
[2021-11-08] MEDS: DOCUSATE SODIUM 100 MG CAPSULE PO SCH (20:38)
[2021-11-08] MEDS: ATORVASTATIN 40 MG TABLET PO SCH (20:38)
--- NOTE | 2021-11-09 01:41 | NUR ---
Confused and disoriented. Kept comfortable. VSS. Needs attended. Incontinent of bowel and bladder. BM noted this shift. Will monitor patient. VSS. Patient seems depressed and very confused. Fall precautions maintained. Siderails up for safety. Will monitor patient.
[2021-11-09 04:18] VITALS: BP 127/62
[2021-11-09] MEDS: LEVOTHYROXINE SODIUM 150 MCG TABLET PO SCH (06:27)
[2021-11-09 08:24] VITALS: BP 122/58
[2021-11-09] MEDS: LINAGLIPTIN 5 MG TABLET PO SCH (09:20)
[2021-11-09] MEDS: CLOPIDOGREL 75 MG TABLET PO SCH (09:20)
[2021-11-09] MEDS: MULTIVIT, IRON, MIN NO. 8, FA TABLET PO SCH (09:21)
[2021-11-09] MEDS: MEMANTINE HCL 10 MG TABLET PO SCH ×2 (09:21→17:01)
[2021-11-09] MEDS: VALPROIC ACID 250 MG CAPSULE PO SCH ×2 (09:24→17:01)
[2021-11-09] MEDS: PANTOPRAZOLE SODIUM 40 MG TABLET.DR PO SCH (09:24)
[2021-11-09] MEDS: OXYBUTYNIN CHLORIDE 5 MG TABLET PO SCH ×3 (09:25→17:01)
[2021-11-09] MEDS: METFORMIN XR 500 MG TAB.SR.24H PO SCH (09:25)
[2021-11-09] MEDS: ENOXAPARIN SODIUM 40 MG/0.4 ML DISP.SYRIN SQ SCH (09:26)
[2021-11-09] MEDS: GLUCERNA SHAKE VANILLA 237 ML CAN PO SCH ×3 (09:33→17:01)
[2021-11-09 15:08] VITALS: BP 130/61
[2021-11-09] MEDS: DONEPEZIL 10 MG TABLET PO SCH (17:01)
[2021-11-09] MEDS: AMITRIPTYLINE HCL 10 MG TABLET PO SCH (17:01)
--- NOTE | 2021-11-09 20:12 | NUR ---
Patient in bed alert and able to make needs known in no apparent distress.Denies pain at this time. Compliant with medications.Bed alarm on.Continue safety measures. Call light with in reach.VSs.Will continue to monitor.
[2021-11-09 20:29] VITALS: BP 110/61
[2021-11-09] MEDS: DOCUSATE SODIUM 100 MG CAPSULE PO SCH (20:30)
[2021-11-09] MEDS: diphenhydrAMINE 25 MG CAP PO PRN (20:30)
[2021-11-09] MEDS: ATORVASTATIN 40 MG TABLET PO SCH (20:30)
[2021-11-10 04:16] VITALS: BP 108/67
[2021-11-10] MEDS: LEVOTHYROXINE SODIUM 150 MCG TABLET PO SCH (06:02)
[2021-11-10 07:14] LABS: HEMATOCRIT 37.4 % (31.2-41.9); MEAN CORPUSCULAR HEMOGLOBIN 30.6 uug (24.7-32.8); MEAN CORPUSCULAR VOLUME 91.8 fL (75.5-95.3); PLATELET COUNT (AUTO) 194 K/uL (179-408)
[2021-11-10 07:43] LABS: CREATININE 0.8 mg/dL (0.6-1.3); MAGNESIUM 2.3 mg/dL (1.8-2.4); PHOSPHOROUS 3.8 mg/dL (2.5-4.9); POTASSIUM 3.6 mmol/L (3.5-5.1)
[2021-11-10] MEDS: MULTIVIT, IRON, MIN NO. 8, FA TABLET PO SCH (07:46)
[2021-11-10] MEDS: CLOPIDOGREL 75 MG TABLET PO SCH (07:46)
[2021-11-10] MEDS: PANTOPRAZOLE SODIUM 40 MG TABLET.DR PO SCH (07:46)
[2021-11-10] MEDS: OXYBUTYNIN CHLORIDE 5 MG TABLET PO SCH ×3 (07:46→17:51)
[2021-11-10] MEDS: MEMANTINE HCL 10 MG TABLET PO SCH ×2 (07:46→17:53)
[2021-11-10] MEDS: VALPROIC ACID 250 MG CAPSULE PO SCH ×2 (07:48→17:56)
[2021-11-10] MEDS: GLUCERNA SHAKE VANILLA 237 ML CAN PO SCH ×3 (07:50→17:53)
[2021-11-10] MEDS: METFORMIN XR 500 MG TAB.SR.24H PO SCH (07:51)
[2021-11-10] MEDS: LINAGLIPTIN 5 MG TABLET PO SCH (07:55)
[2021-11-10] MEDS: ENOXAPARIN SODIUM 40 MG/0.4 ML DISP.SYRIN SQ SCH (07:59)
[2021-11-10 08:45] VITALS: BP 128/69
[2021-11-10] MEDS ORDERED: diphenhydrAMINE 1% CREAM 28.3 GM TUBE TP PRN (15:30)
[2021-11-10 15:48] VITALS: BP 123/57
[2021-11-10] MEDS: AMITRIPTYLINE HCL 10 MG TABLET PO SCH (17:51)
[2021-11-10] MEDS: DONEPEZIL 10 MG TABLET PO SCH (17:51)
[2021-11-10 19:58] VITALS: BP 100/59
[2021-11-10] MEDS: ATORVASTATIN 10 MG TABLET PO SCH (20:19)
[2021-11-10] MEDS: DOCUSATE SODIUM 100 MG CAPSULE PO SCH (20:19)
[2021-11-11 04:31] VITALS: BP 119/64
[2021-11-11] MEDS: LEVOTHYROXINE SODIUM 150 MCG TABLET PO SCH (06:10)
--- NOTE | 2021-11-11 07:30 | NUR ---
RECEIVED PATIENT IN BED ASLEEP AROUSES EASILY ALERT WHEN AWAKE VERBALLY RESPONDS BUT IS ALERT TO SELF WITH CONFUSSION ALL NEEDS ANTICIPATED AND SATISFIED MAX ASSIST FOR ALL ADL REPOSITIONED FOR COMFORT Q2H ON ROOM AIR WITH NO SHORTNESS OF BREATH NOT IN DISTRESS AT THIS TIME WILL CONTINUE TO OBSERVE AND PROVIDE SAFETY.
[2021-11-11 08:00] VITALS: BP 123/66
[2021-11-11] MEDS: MEMANTINE HCL 10 MG TABLET PO SCH ×2 (08:36→17:27)
[2021-11-11] MEDS: OXYBUTYNIN CHLORIDE 5 MG TABLET PO SCH ×3 (08:36→17:28)
[2021-11-11] MEDS: LINAGLIPTIN 5 MG TABLET PO SCH (08:37)
[2021-11-11] MEDS: CLOPIDOGREL 75 MG TABLET PO SCH (08:37)
[2021-11-11] MEDS: PANTOPRAZOLE SODIUM 40 MG TABLET.DR PO SCH (08:37)
[2021-11-11] MEDS: METFORMIN XR 500 MG TAB.SR.24H PO SCH (08:37)
[2021-11-11] MEDS: MULTIVIT, IRON, MIN NO. 8, FA TABLET PO SCH (08:37)
[2021-11-11] MEDS: ENOXAPARIN SODIUM 40 MG/0.4 ML DISP.SYRIN SQ SCH (08:42)
[2021-11-11] MEDS: GLUCERNA SHAKE VANILLA 237 ML CAN PO SCH ×3 (08:45→17:29)
[2021-11-11] MEDS: VALPROIC ACID 250 MG CAPSULE PO SCH ×2 (08:47→17:28)
--- NOTE | 2021-11-11 10:10 | NUR ---
DR OCONNOR HERE TO SEE PATIENT WITH NEW ORDERS AND NOTED.ALERT WITH POOR APPETITE MD AWARE BUT IS TOLERATING GLUCERNA AT THIS TIME
--- NOTE | 2021-11-11 13:15 | NUR ---
DR LEBLANC HERE TO SEE PATIENT AND STATED TO CHANGE THE BENADRYL ORDER TO ROUTINE QS INSTEAD OF PRN AND NOTED.
[2021-11-11] MEDS: diphenhydrAMINE 1% CREAM 28.3 GM TUBE TP SCH ×2 (13:32→20:47)
[2021-11-11 16:00] VITALS: BP 118/62
--- NOTE | 2021-11-11 16:06 | NUR ---
INTERDISCIPLINARY TEAM CONFERENCE THIS WAS OBSERVED AND DONE ON 11/06/21 13:00
[2021-11-11] MEDS: DONEPEZIL 10 MG TABLET PO SCH (17:27)
--- NOTE | 2021-11-11 18:00 | NUR ---
SHE IS CONTINENT AND INCONTINENT ASSISTED TO AND FROM THE BATHROOM AND VOIDING DENIES DISCOMFORTS WILL CONTINUE TO OBSERVE.
[2021-11-11 20:00] VITALS: BP 129/54
[2021-11-11] MEDS: MIRTAZAPINE 15 MG TABLET PO SCH (20:44)
[2021-11-11] MEDS: ATORVASTATIN 10 MG TABLET PO SCH (20:44)
[2021-11-11] MEDS: DOCUSATE SODIUM 100 MG CAPSULE PO SCH (20:44)
[2021-11-12 04:00] VITALS: BP 120/56
[2021-11-12] MEDS: LEVOTHYROXINE SODIUM 150 MCG TABLET PO SCH (06:26)
--- NOTE | 2021-11-12 07:32 | NUR ---
PATIENT SEEN ON ROUNDS IN BED WITH EYES CLOSED SEEMS COMFORTABLE ON ROOM AIR WITH NO SHORTNESS OF BREATH CALL LIGHTS AND PERSONAL BELONGINGS ARE WITHIN EASY REACH AT THIS TIME BED ALARM IS IN USE WILL CONTINUE TO OBSERVE.
[2021-11-12 08:18] VITALS: BP 140/67
[2021-11-12] MEDS: VALPROIC ACID 250 MG CAPSULE PO SCH ×2 (08:32→16:44)
[2021-11-12] MEDS: METFORMIN XR 500 MG TAB.SR.24H PO SCH (08:32)
[2021-11-12] MEDS: OXYBUTYNIN CHLORIDE 5 MG TABLET PO SCH ×3 (08:33→16:44)
[2021-11-12] MEDS: MEMANTINE HCL 10 MG TABLET PO SCH ×2 (08:33→16:44)
[2021-11-12] MEDS: MULTIVIT, IRON, MIN NO. 8, FA TABLET PO SCH (08:33)
[2021-11-12] MEDS: PANTOPRAZOLE SODIUM 40 MG TABLET.DR PO SCH (08:33)
[2021-11-12] MEDS: LINAGLIPTIN 5 MG TABLET PO SCH (08:33)
[2021-11-12] MEDS: CLOPIDOGREL 75 MG TABLET PO SCH (08:33)
[2021-11-12] MEDS: diphenhydrAMINE 1% CREAM 28.3 GM TUBE TP SCH ×2 (08:34→21:35)
[2021-11-12] MEDS: GLUCERNA SHAKE VANILLA 237 ML CAN PO SCH ×3 (08:42→16:48)
[2021-11-12] MEDS: ACETAMINOPHEN 325 MG TABLET PO PRN (13:40)
[2021-11-12 15:14] VITALS: BP 115/63
--- NOTE | 2021-11-12 18:00 | NUR ---
TOLERATING PHYSICAL THERAPY ORDERED WILL CONTINUE TO OBSERVE.
[2021-11-12] MEDS: DONEPEZIL 10 MG TABLET PO SCH (18:45)
[2021-11-12 20:00] VITALS: BP 113/66
[2021-11-12] MEDS: DOCUSATE SODIUM 100 MG CAPSULE PO SCH (21:34)
[2021-11-12] MEDS: MIRTAZAPINE 15 MG TABLET PO SCH (21:34)
[2021-11-12] MEDS: ATORVASTATIN 10 MG TABLET PO SCH (21:34)
--- NOTE | 2021-11-13 03:58 | NUR ---
AAOx1 Confused and disoriented to time and place. OOB to the BR . Voiding well. Needs attended. Kept comfortable. VSS Continent of bowel and bladder. Will monitor patient. All due meds given. Fall precautions maintained. Siderails up for safety.
[2021-11-13 04:00] VITALS: BP 126/52
[2021-11-13] MEDS: LEVOTHYROXINE SODIUM 150 MCG TABLET PO SCH (06:08)
[2021-11-13] MEDS: GLUCERNA SHAKE VANILLA 237 ML CAN PO SCH ×3 (08:42→16:34)
[2021-11-13] MEDS: OXYBUTYNIN CHLORIDE 5 MG TABLET PO SCH ×3 (08:42→16:32)
[2021-11-13] MEDS: LINAGLIPTIN 5 MG TABLET PO SCH (08:42)
[2021-11-13] MEDS: PANTOPRAZOLE SODIUM 40 MG TABLET.DR PO SCH (08:42)
[2021-11-13] MEDS: MULTIVIT, IRON, MIN NO. 8, FA TABLET PO SCH (08:42)
[2021-11-13] MEDS: MEMANTINE HCL 10 MG TABLET PO SCH ×2 (08:42→16:33)
[2021-11-13] MEDS: CLOPIDOGREL 75 MG TABLET PO SCH (08:42)
[2021-11-13] MEDS: METFORMIN XR 500 MG TAB.SR.24H PO SCH (08:43)
[2021-11-13] MEDS: VALPROIC ACID 250 MG CAPSULE PO SCH ×2 (08:43→16:33)
[2021-11-13] MEDS: diphenhydrAMINE 1% CREAM 28.3 GM TUBE TP SCH ×2 (08:44→20:30)
[2021-11-13 08:49] VITALS: BP 117/63
--- NOTE | 2021-11-13 14:20 | NUR ---
INTERDISCIPLINARY TEAM CONFERENCE
[2021-11-13] MEDS: DONEPEZIL 10 MG TABLET PO SCH (17:13)
[2021-11-13 17:18] VITALS: BP 139/61
--- NOTE | 2021-11-13 18:45 | NUR ---
The patient remained stable during the shift. no distress identified. tolerated PT sessions. assisted to the bathroom as needed. no concerns identified. kept call light within reach. all due meds given. all needs attended. safety measures maintained. will endorse to the next shift for continuity of care.
[2021-11-13 20:00] VITALS: BP 127/66
[2021-11-13] MEDS: MIRTAZAPINE 15 MG TABLET PO SCH (20:30)
[2021-11-13] MEDS: ATORVASTATIN 10 MG TABLET PO SCH (20:30)
[2021-11-13] MEDS: DOCUSATE SODIUM 100 MG CAPSULE PO SCH (20:30)
--- NOTE | 2021-11-13 21:41 | NUR ---
Awake alert and oriented x1-2 . Confused and disoriented. Assisted to the BR with minimal assist. BM noted this shift. Patient also incontinent of bowel and bladder at times. Wears diapers. Kept clean and dry. All due meds given as scheduled. All needs attended. Will monitor patient. No acute distress noted.
[2021-11-14 04:00] VITALS: BP 108/56
[2021-11-14] MEDS: LEVOTHYROXINE SODIUM 150 MCG TABLET PO SCH (06:13)
[2021-11-14 07:53] VITALS: BP 121/75
[2021-11-14] MEDS: METFORMIN XR 500 MG TAB.SR.24H PO SCH (09:09)
[2021-11-14] MEDS: MEMANTINE HCL 10 MG TABLET PO SCH ×2 (09:09→17:24)
[2021-11-14] MEDS: VALPROIC ACID 250 MG CAPSULE PO SCH ×2 (09:09→17:24)
[2021-11-14] MEDS: CLOPIDOGREL 75 MG TABLET PO SCH (09:09)
[2021-11-14] MEDS: OXYBUTYNIN CHLORIDE 5 MG TABLET PO SCH ×3 (09:09→17:24)
[2021-11-14] MEDS: MULTIVIT, IRON, MIN NO. 8, FA TABLET PO SCH (09:10)
[2021-11-14] MEDS: GLUCERNA SHAKE VANILLA 237 ML CAN PO SCH ×3 (09:10→17:25)
[2021-11-14] MEDS: LINAGLIPTIN 5 MG TABLET PO SCH (09:10)
[2021-11-14] MEDS: PANTOPRAZOLE SODIUM 40 MG TABLET.DR PO SCH (09:10)
[2021-11-14] MEDS: diphenhydrAMINE 1% CREAM 28.3 GM TUBE TP SCH ×2 (09:16→20:18)
[2021-11-14 15:54] VITALS: BP 104/60
[2021-11-14] MEDS: DONEPEZIL 10 MG TABLET PO SCH (17:26)
--- NOTE | 2021-11-14 18:14 | NUR ---
Patient remained stable during the shift. no distress no C/O of pain. tolerated PT therapy sessions . assisted to the bathroom as needed. kept call light within reach. all due meds given. all needs attended. safety measures maintained remain at bed side. will endorse to the next shift for continuity of care.
[2021-11-14] MEDS: ATORVASTATIN 10 MG TABLET PO SCH (20:16)
[2021-11-14] MEDS: MIRTAZAPINE 15 MG TABLET PO SCH (20:16)
[2021-11-14 20:17] VITALS: BP 116/67
[2021-11-14] MEDS: DOCUSATE SODIUM 100 MG CAPSULE PO SCH (20:18)
--- NOTE | 2021-11-14 21:42 | NUR ---
Awake alert and oriented x1 watching TV upon initial rounds. All needs attended. Will monitor patient. Kept comfortable. Tolerated po meds well. No behavioral activity noted. Fall precautions maintained. Incontinent of bowel and bladder. BM noted this shift. VSS. Siderails up for safety.
[2021-11-15 04:40] VITALS: BP 124/56
[2021-11-15] MEDS: LEVOTHYROXINE SODIUM 150 MCG TABLET PO SCH (06:06)
[2021-11-15 07:55] VITALS: BP 157/61
[2021-11-15] MEDS: MEMANTINE HCL 10 MG TABLET PO SCH ×2 (08:54→17:51)
[2021-11-15] MEDS: VALPROIC ACID 250 MG CAPSULE PO SCH ×2 (08:54→17:50)
[2021-11-15] MEDS: OXYBUTYNIN CHLORIDE 5 MG TABLET PO SCH ×3 (08:54→17:51)
[2021-11-15] MEDS: MULTIVIT, IRON, MIN NO. 8, FA TABLET PO SCH (08:54)
[2021-11-15] MEDS: LINAGLIPTIN 5 MG TABLET PO SCH (08:54)
[2021-11-15] MEDS: PANTOPRAZOLE SODIUM 40 MG TABLET.DR PO SCH (08:54)
[2021-11-15] MEDS: GLUCERNA SHAKE VANILLA 237 ML CAN PO SCH ×3 (08:55→17:54)
[2021-11-15] MEDS: METFORMIN XR 500 MG TAB.SR.24H PO SCH (08:55)
[2021-11-15] MEDS: CLOPIDOGREL 75 MG TABLET PO SCH (08:56)
[2021-11-15] MEDS: diphenhydrAMINE 1% CREAM 28.3 GM TUBE TP SCH ×2 (09:15→20:18)
[2021-11-15 15:39] VITALS: BP 134/78
--- NOTE | 2021-11-15 16:08 | NUR ---
Receive patient awake alert and oriented x1-2 , disoriented at times,but able to let her needs known . Assisted to the BR with minimal assist using the FWW. had BM X1 . Patient also incontinent at times . Wears diapers, Up in W/C with PT participate with therapeutic routine, family at bed side . Kept clean and dry. All due meds given as scheduled. All needs attended. Will monitor patient. No acute distress noted
[2021-11-15] MEDS: DONEPEZIL 10 MG TABLET PO SCH (17:50)
--- NOTE | 2021-11-15 18:51 | NUR ---
Patient family requested to change her diet from Cardiac to Regular since she is not eating very much , notified DR Harris and she agree to diet change order noted and carried out.
[2021-11-15] MEDS: MIRTAZAPINE 15 MG TABLET PO SCH (20:11)
[2021-11-15] MEDS: DOCUSATE SODIUM 100 MG CAPSULE PO SCH (20:11)
[2021-11-15] MEDS: ATORVASTATIN 10 MG TABLET PO SCH (20:11)
[2021-11-15 20:34] VITALS: BP 113/63
[2021-11-15] MEDS: ZOLPIDEM 5 MG TABLET PO PRN (23:25)
[2021-11-16 04:43] VITALS: BP 104/56
[2021-11-16] MEDS: LEVOTHYROXINE SODIUM 150 MCG TABLET PO SCH (06:00)
--- NOTE | 2021-11-16 06:21 | NUR ---
Received pt awake on bed upon initial rounds, no respiratory distress noted. She is alert and oriented x2, confused. Denies pain and discomfort. Ambien PRN given are requested, pt anxious and agitated d/t not being by her side and verbalized not being able to sleep. She slept throughout the night comfortably. All needs attended. Call light placed within reach. Frequent visual checks done.
[2021-11-16 08:19] VITALS: BP 122/57
[2021-11-16] MEDS: LINAGLIPTIN 5 MG TABLET PO SCH (08:42)
[2021-11-16] MEDS: CLOPIDOGREL 75 MG TABLET PO SCH (08:42)
[2021-11-16] MEDS: PANTOPRAZOLE SODIUM 40 MG TABLET.DR PO SCH (08:42)
[2021-11-16] MEDS: OXYBUTYNIN CHLORIDE 5 MG TABLET PO SCH ×3 (08:42→17:03)
[2021-11-16] MEDS: MEMANTINE HCL 10 MG TABLET PO SCH ×2 (08:42→17:03)
[2021-11-16] MEDS: VALPROIC ACID 250 MG CAPSULE PO SCH ×2 (08:42→17:04)
[2021-11-16] MEDS: MULTIVIT, IRON, MIN NO. 8, FA TABLET PO SCH (08:42)
[2021-11-16] MEDS: METFORMIN XR 500 MG TAB.SR.24H PO SCH (08:43)
[2021-11-16] MEDS: diphenhydrAMINE 1% CREAM 28.3 GM TUBE TP SCH ×2 (08:43→20:28)
[2021-11-16] MEDS: GLUCERNA SHAKE VANILLA 237 ML CAN PO SCH ×3 (08:43→17:04)
[2021-11-16 16:12] VITALS: BP 120/60
[2021-11-16] MEDS: DONEPEZIL 10 MG TABLET PO SCH (17:03)
[2021-11-16] MEDS ORDERED: METHYL SALICYLATE/MENTHOL CREAM 28 GM TUBE TOP PRN (18:45)
[2021-11-16 20:18] VITALS: BP 98/58
[2021-11-16] MEDS: MIRTAZAPINE 15 MG TABLET PO SCH (20:27)
[2021-11-16] MEDS: DOCUSATE SODIUM 100 MG CAPSULE PO SCH (20:27)
[2021-11-16] MEDS: ATORVASTATIN 10 MG TABLET PO SCH (20:27)
[2021-11-17 04:25] VITALS: BP 107/69
[2021-11-17] MEDS: LEVOTHYROXINE SODIUM 150 MCG TABLET PO SCH (06:05)
[2021-11-17 07:39] VITALS: BP 122/63
[2021-11-17] MEDS: OXYBUTYNIN CHLORIDE 5 MG TABLET PO SCH ×3 (08:54→17:17)
[2021-11-17] MEDS: CLOPIDOGREL 75 MG TABLET PO SCH (08:54)
[2021-11-17] MEDS: LINAGLIPTIN 5 MG TABLET PO SCH (08:55)
[2021-11-17] MEDS: MEMANTINE HCL 10 MG TABLET PO SCH ×2 (08:55→17:16)
[2021-11-17] MEDS: MULTIVIT, IRON, MIN NO. 8, FA TABLET PO SCH (08:55)
[2021-11-17] MEDS: PANTOPRAZOLE SODIUM 40 MG TABLET.DR PO SCH (08:55)
[2021-11-17] MEDS: METFORMIN XR 500 MG TAB.SR.24H PO SCH (08:56)
[2021-11-17] MEDS: VALPROIC ACID 250 MG CAPSULE PO SCH ×2 (08:56→17:17)
[2021-11-17] MEDS: GLUCERNA SHAKE VANILLA 237 ML CAN PO SCH ×3 (08:57→17:21)
[2021-11-17] MEDS: diphenhydrAMINE 1% CREAM 28.3 GM TUBE TP SCH ×2 (08:59→20:25)
[2021-11-17 15:01] VITALS: BP 123/66
[2021-11-17] MEDS: DONEPEZIL 10 MG TABLET PO SCH (17:16)
[2021-11-17 20:09] VITALS: BP 109/60
[2021-11-17] MEDS: ATORVASTATIN 10 MG TABLET PO SCH (20:24)
[2021-11-17] MEDS: MIRTAZAPINE 15 MG TABLET PO SCH (20:24)
[2021-11-17] MEDS: DOCUSATE SODIUM 100 MG CAPSULE PO SCH (20:24)
[2021-11-17] MEDS: ZOLPIDEM 5 MG TABLET PO PRN (22:37)
[2021-11-18 04:12] VITALS: BP 115/65
[2021-11-18] MEDS: LEVOTHYROXINE SODIUM 150 MCG TABLET PO SCH (06:49)
[2021-11-18 08:09] VITALS: BP 104/87
[2021-11-18] MEDS: MEMANTINE HCL 10 MG TABLET PO SCH ×2 (08:13→16:44)
[2021-11-18] MEDS: VALPROIC ACID 250 MG CAPSULE PO SCH ×2 (08:13→16:44)
[2021-11-18] MEDS: CLOPIDOGREL 75 MG TABLET PO SCH (08:13)
[2021-11-18] MEDS: LINAGLIPTIN 5 MG TABLET PO SCH (08:13)
[2021-11-18] MEDS: METFORMIN XR 500 MG TAB.SR.24H PO SCH (08:14)
[2021-11-18 08:15] VITALS: BP 104/87
[2021-11-18] MEDS: GLUCERNA SHAKE VANILLA 237 ML CAN PO SCH ×3 (08:15→16:45)
[2021-11-18] MEDS: MULTIVIT, IRON, MIN NO. 8, FA TABLET PO SCH (08:44)
[2021-11-18] MEDS: OXYBUTYNIN CHLORIDE 5 MG TABLET PO SCH ×3 (08:44→16:44)
[2021-11-18] MEDS: diphenhydrAMINE 1% CREAM 28.3 GM TUBE TP SCH ×2 (08:45→20:35)
[2021-11-18] MEDS: PANTOPRAZOLE SODIUM 40 MG TABLET.DR PO SCH (08:46)
[2021-11-18] MEDS: ACETAMINOPHEN 325 MG TABLET PO PRN (10:20)
[2021-11-18 15:28] VITALS: BP 122/55
[2021-11-18] MEDS: DONEPEZIL 10 MG TABLET PO SCH (17:16)
--- NOTE | 2021-11-18 18:19 | NUR ---
Patient remained stable, no acute distress noted.Patient is for UA, awaiting sample from the patient. Kept call light within reach. Safety measures maintained at all times, due medication given. All needs attended. Will endorse for continuity of care.
[2021-11-18 19:13] LABS: *BILIRUBIN,URIN NEGATIVE (NEGATIVE); *BLOOD, URINE 1+ (NEGATIVE); *CLARITY,URINE CLOUDY (CLEAR); *COLOR,URINE YELLOW (YELLOW); *KETONES,URINE TRACE (NEGATIVE); *UROBILINOGEN,URINE 0.2 E.U./dl (NORMAL); LEUKOCYTE ESTERASE ,URINE 1+ (NEGATIVE); NITRITE, URINE NEGATIVE (NEGATIVE); PH,URINE 5.5 (5.0-8.0); UGLUCOSE NEGATIVE (NEGATIVE)
[2021-11-18 20:00] VITALS: BP 101/45
[2021-11-18 20:16] LABS: SQUAMOUS EPITHELIAL CELL,UR FEW /HPF (NONE SEEN)
[2021-11-18 20:18] LABS: WBC,URINE 20-50 /HPF (0-3)
[2021-11-18 20:19] LABS: BACTERIA,URINE MANY /HPF (NONE SEEN); YEAST,URINE FEW /HPF (NONE SEEN)
[2021-11-18 20:21] LABS: MUCUS,URINE FEW /LPF (0-FEW)
[2021-11-18] MEDS: ATORVASTATIN 10 MG TABLET PO SCH (20:34)
[2021-11-18] MEDS: DOCUSATE SODIUM 100 MG CAPSULE PO SCH (20:34)
[2021-11-18] MEDS: MIRTAZAPINE 15 MG TABLET PO SCH (20:34)
[2021-11-19 04:00] VITALS: BP 120/70
[2021-11-19] MEDS: LEVOTHYROXINE SODIUM 150 MCG TABLET PO SCH (06:28)
--- NOTE | 2021-11-19 07:20 | NUR ---
Received Patient in bed. AOx1-2. Room air. Not in acute distress. Patient denies pain at this time. Bed alarm on. Call light within reach. Monitor for continuity of care.
[2021-11-19 07:58] VITALS: BP 132/63
[2021-11-19] MEDS: MULTIVIT, IRON, MIN NO. 8, FA TABLET PO SCH (08:19)
[2021-11-19] MEDS: OXYBUTYNIN CHLORIDE 5 MG TABLET PO SCH ×3 (08:19→16:32)
[2021-11-19] MEDS: MEMANTINE HCL 10 MG TABLET PO SCH ×2 (08:20→16:32)
[2021-11-19] MEDS: CLOPIDOGREL 75 MG TABLET PO SCH (08:20)
[2021-11-19] MEDS: PANTOPRAZOLE SODIUM 40 MG TABLET.DR PO SCH (08:20)
[2021-11-19] MEDS: LINAGLIPTIN 5 MG TABLET PO SCH (08:21)
[2021-11-19] MEDS: GLUCERNA SHAKE VANILLA 237 ML CAN PO SCH ×3 (08:22→16:38)
[2021-11-19] MEDS: VALPROIC ACID 250 MG CAPSULE PO SCH ×2 (08:22→16:33)
[2021-11-19] MEDS: METFORMIN XR 500 MG TAB.SR.24H PO SCH (08:22)
[2021-11-19] MEDS: ACETAMINOPHEN 325 MG TABLET PO PRN (08:55)
[2021-11-19] MEDS: diphenhydrAMINE 1% CREAM 28.3 GM TUBE TP SCH ×2 (09:06→20:21)
[2021-11-19] MEDS: CEphaleXIN 500 MG CAPSULE PO SCH ×3 (12:36→21:08)
[2021-11-19 15:40] VITALS: BP 114/67
[2021-11-19] MEDS: DONEPEZIL 10 MG TABLET PO SCH (17:29)
--- NOTE | 2021-11-19 18:42 | NUR ---
Patient resting in bed. AOx1-2. Room air. Not in acute distress. Call light within reach, bed alarm on. Compliant with medication and care. Participated with physical and occupational therapy. Needs anticipated and met. Will endorse to incoming shift
[2021-11-19 20:00] VITALS: BP 111/56
[2021-11-19] MEDS: DOCUSATE SODIUM 100 MG CAPSULE PO SCH (20:20)
[2021-11-19] MEDS: ATORVASTATIN 10 MG TABLET PO SCH (20:20)
[2021-11-19] MEDS: MIRTAZAPINE 15 MG TABLET PO SCH (20:20)
[2021-11-20 04:00] VITALS: BP 116/64
[2021-11-20] MEDS: CEphaleXIN 500 MG CAPSULE PO SCH ×2 (06:13→14:07)
[2021-11-20] MEDS: LEVOTHYROXINE SODIUM 150 MCG TABLET PO SCH (06:13)
[2021-11-20 08:00] VITALS: BP 132/69
[2021-11-20] MEDS: CLOPIDOGREL 75 MG TABLET PO SCH (08:43)
[2021-11-20] MEDS: OXYBUTYNIN CHLORIDE 5 MG TABLET PO SCH ×2 (08:43→14:07)
[2021-11-20] MEDS: VALPROIC ACID 250 MG CAPSULE PO SCH (08:43)
[2021-11-20] MEDS: PANTOPRAZOLE SODIUM 40 MG TABLET.DR PO SCH (08:43)
[2021-11-20] MEDS: MULTIVIT, IRON, MIN NO. 8, FA TABLET PO SCH (08:43)
[2021-11-20] MEDS: MEMANTINE HCL 10 MG TABLET PO SCH (08:43)
[2021-11-20] MEDS: LINAGLIPTIN 5 MG TABLET PO SCH (08:43)
[2021-11-20] MEDS: GLUCERNA SHAKE VANILLA 237 ML CAN PO SCH ×2 (08:44→14:07)
[2021-11-20] MEDS: METFORMIN XR 500 MG TAB.SR.24H PO SCH (08:44)
[2021-11-20] MEDS: diphenhydrAMINE 1% CREAM 28.3 GM TUBE TP SCH (08:45)
--- NOTE | 2021-11-20 12:47 | NUR ---
Received discharge order from Dr. Perry to home with home health for PT, OT and nursing services. Patient and [facility] at bedside made aware and is agreeable.
--- NOTE | 2021-11-20 14:30 | NUR ---
Discharge instructions provided to the [facility] and daughter Garima at bedsided with verbalized understanding. Discharge papers signed by and given to the . All belongings well accounted for. Discharge medications and prescription faxed to [facility]. Per Dr. Bethea call in to the pharmacy Keflex 500mg PO Q8hrs x 4 more days. Called [facility] and spoke to pharmacist Mark and added the above medication as ordered. Patient remains alert, verbally responsive, not in any form of distress, on room air. Vital signs stable. She denies any pain or discomfort. Needs attended to. Assisted patient to the lobby via wheelchair. Patient discharged to home, was picked by [facility] via private car.
== END 2021-11-20 14:30 | disposition home health service (06) | DRG 70 ==
PROVIDERS: ADMIT Physical Medicine & Rehabilitation Pain Medicine; ATTEND Physical Medicine & Rehabilitation Pain Medicine
DX: G93.41 Metabolic encephalopathy (principal); E43 Unspecified severe protein-calorie malnutrition; D68.59 Other primary thrombophilia; F01.51 Vascular dementia, unspecified severity, with behavioral disturbance; G45.9 Transient cerebral ischemic attack, unspecified; I69.398 Other sequelae of cerebral infarction; E03.9 Hypothyroidism, unspecified; E66.9 Obesity, unspecified; J44.9 Chronic obstructive pulmonary disease, unspecified; M19.91 Primary osteoarthritis, unspecified site; G93.89 Other specified disorders of brain; E11.9 Type 2 diabetes mellitus without complications; E87.6 Hypokalemia; G47.00 Insomnia, unspecified; G89.29 Other chronic pain; I10 Essential (primary) hypertension; I67.2 Cerebral atherosclerosis; F41.9 Anxiety disorder, unspecified; J39.8 Other specified diseases of upper respiratory tract; Q24.8 Other specified congenital malformations of heart; R53.1 Weakness; R82.81 Pyuria; Z87.440 Personal history of urinary (tract) infections; Z20.822 Contact with and (suspected) exposure to COVID-19; Z68.30 Body mass index [BMI] 30.0-30.9, adult; Z87.891 Personal history of nicotine dependence; I25.10 Atherosclerotic heart disease of native coronary artery without angina pectoris; K59.00 Constipation, unspecified; Z91.81 History of falling; M19.90 Unspecified osteoarthritis, unspecified site; M25.551 Pain in right hip; R60.9 Edema, unspecified; G62.9 Polyneuropathy, unspecified
CPT/HCPCS: 36415; 80164; 82652; 83735; 84100; 84443; 85025; 87086; 97161; 97535-GO-CO; A6209; J1650; Q0163

== ENCOUNTER 2022-09-04 17:01 | Inpatient (IN) | payer MEDICARE, BC ==
[~2022-09-04] VITALS: Ht 167.6 cm; Wt 87.1 kg
[~2022-09-04 17:01] MED LIST changes: +ACET-2154 PO; +ATOR40TA PO; +CHOL400C8; -CIPR-262 PO; -HYDR12.517 PO; -INSU100V7 SQ; +LINA5TAB PO; -METF-440 PO; +OXYB5TAB16 PO; +PANT40TA2 PO; +PETR113P TP; -POTA10CA43 PO
--- NOTE | 2022-09-04 17:33 | NUR ---
Patient examined by physician upon triage. PT's daughter providing clinical data.
[2022-09-04] MEDS ORDERED: IV NS 1000 ML 1,000 ML IV ONE (18:00)
[2022-09-04 19:00] LABS: HEMATOCRIT 35.8 % (31.2-41.9); MEAN CORPUSCULAR HEMOGLOBIN 31.1 uug (24.7-32.8); MEAN CORPUSCULAR VOLUME 91.7 fL (75.5-95.3); PLATELET COUNT (AUTO) 271 K/uL (179-408)
[2022-09-04 19:03] LABS: NEUTROPHILS % (MANUAL) 0 % (42-75)
[2022-09-04 19:08] LABS: CARBON DIOXIDE 30 mmol/L (21-32); CHLORIDE 94 mmol/L (98-107); CREATININE 1.5 mg/dL (0.6-1.3); GLUCOSE 264 mg/dL (74-106); POTASSIUM 3.6 mmol/L (3.5-5.1); UREA NITROGEN, BLOOD 19 mg/dL (7-18)
[2022-09-04 19:16] LABS: ALANINE AMINOTRANSFERASE 13 U/L (14-59); ALKALINE PHOSPHATASE 81 U/L (50-136); ASPARTATE AMINOTRANSFERASE 12 U/L (15-37); BILIRUBIN,DIRECT 0.2 mg/dL (0.0-0.2); BILIRUBIN,TOTAL 1.3 mg/dL (0.2-1.0); TOTAL PROTEIN, SERUM 6.7 g/dL (6.4-8.2)
[2022-09-04 19:21] LABS: THYROID STIMULATING HORMONE 0.644 mIU/mL (0.358-3.740)
[2022-09-04] MEDS ORDERED: CEFTRIAXONE /D5W 50ML IVPB **ER PYXIS IV ONE (19:26)
[2022-09-04] MEDS ORDERED: IV NORMAL SALINE 500 ML BAG IV ONE (19:30)
[2022-09-04] MEDS ORDERED: CEFTRIAXONE 1 G in IV DEXTROSE 5% 50 ML IV ONE (19:30)
--- NOTE | 2022-09-04 19:45 | NUR ---
Called [facility] for panel call.
[2022-09-04] MEDS ORDERED: VANCOMYCIN IV 400 ML ONE (20:14)
--- NOTE | 2022-09-04 20:38 | NUR ---
Called thrid floor to give report to LUIS MANUEL Vivas. Stated she would call me back when ready.
--- NOTE | 2022-09-04 20:45 | NUR ---
IV Vancomycin 2G completed.
[2022-09-04 20:47] LABS: *BILIRUBIN,URIN NEGATIVE (NEGATIVE); *BLOOD, URINE 1+ (NEGATIVE); *CLARITY,URINE CLOUDY (CLEAR); *COLOR,URINE YELLOW (YELLOW); *KETONES,URINE TRACE (NEGATIVE); *UROBILINOGEN,URINE 0.2 E.U./dl (NORMAL); LEUKOCYTE ESTERASE ,URINE 1+ (NEGATIVE); NITRITE, URINE POSITIVE (NEGATIVE); UGLUCOSE 2+ (NEGATIVE)
[2022-09-04] MEDS ORDERED: VANCOMYCIN IV 2,000 MG in IV DEXTROSE 5% 500 ML IV ONE (21:00)
[2022-09-04 21:38] LABS: BACTERIA,URINE MANY /HPF (NONE SEEN); SQUAMOUS EPITHELIAL CELL,UR FEW /HPF (NONE SEEN); WBC,URINE TNTC /HPF (0-3)
--- NOTE | 2022-09-04 21:55 | NUR ---
Patient was transfered to thrid floor. LUIS MANUEL Vivas made aware of patient's arrival.
--- NOTE | 2022-09-04 22:00 | NUR ---
Admitted 82 yr old female at Telemetry unit via nahidrjustine assisted by Sveta ISSA form ER diagnosed with Sepsis and UTI under Dr. Conway. AAOx1. c/o of worsening generalized weakness. Unable to ambulate. complaints of pain on rakesh lower leg. IV on L FA 20 g intact and patent. Started NS @ 75 ml/hr. Administered antibiotics as ordered. On room air sating at 95%. Noted redness on perineum and buttocks. Routine admission done. All needs attended. Call light in reach. Bed alarm on. Left bed in lowest position. Safety precautions maintained. Will continue to monitor. Received call from Tara (lab) regarding critical value of Lactic acid 4.6. notified.
[2022-09-04 22:29] VITALS: BP 141/70
[2022-09-04] MEDS ORDERED: QUETIAPINE FUMARATE 25 MG TABLET PO PRN (22:30)
[2022-09-04] MEDS ORDERED: HYDROCODONE/APAP 5-325MG TABLET PO PRN (22:30)
[2022-09-04] MEDS ORDERED: REMEDY ESSENTIAL ZINC PASTE 113 GM TP PRN (22:30)
[2022-09-04] MEDS ORDERED: ACETAMINOPHEN 325 MG TABLET PO PRN (22:30)
[2022-09-04] MEDS ORDERED: ONDANSETRON 4 MG/2 ML VIAL IV PRN (22:30)
[2022-09-04] MEDS: IV NS 1000 ML 1,000 ML IV PRN (23:20)
[2022-09-04] MEDS ORDERED: PIPERACILLIN/TAZOBACTAM/D5W 100 ML ONE (23:26)
[2022-09-05] MEDS ORDERED: PIPERACILLIN SODIUM/TAZOBACTAM 3.375 G in IV DEXTROSE 5% 50 ML IV SCH ×2
[2022-09-05] MEDS: PIPERACILLIN/TAZO 2.25 G in IV DEXTROSE 5% 50 ML IV SCH ×5 (00:18→23:25)
[2022-09-05 04:46] VITALS: BP 145/58
[2022-09-05 06:32] LABS: HEMATOCRIT 32.9 % (31.2-41.9); MEAN CORPUSCULAR HEMOGLOBIN 31.4 uug (24.7-32.8); MEAN CORPUSCULAR VOLUME 89.6 fL (75.5-95.3); PLATELET COUNT (AUTO) 257 K/uL (179-408)
[2022-09-05 06:49] LABS: CARBON DIOXIDE 29 mmol/L (21-32); CHLORIDE 96 mmol/L (98-107); CHOLESTEROL 110 mg/dL (<200); CREATININE 1.4 mg/dL (0.6-1.3); GLUCOSE 206 mg/dL (74-106); HDL CHOLESTEROL 62 mg/dL (40-60); MAGNESIUM 1.5 mg/dL (1.8-2.4); TRIGLYCERIDES 142 MG/DL (30-150); UREA NITROGEN, BLOOD 14 mg/dL (7-18)
[2022-09-05] MEDS: PANTOPRAZOLE SODIUM 40 MG TABLET.DR PO SCH (06:49)
[2022-09-05 06:56] LABS: THYROID STIMULATING HORMONE 0.436 mIU/mL (0.358-3.740)
[2022-09-05] MEDS ORDERED: LEVOTHYROXINE SODIUM 125 MCG TABLET PO SCH ×2 (07:00)
[2022-09-05 07:43] LABS: POTASSIUM 2.8 mmol/L (3.5-5.1)
[2022-09-05] MEDS: GLUCERNA SHAKE 237 ML CAN PO SCH ×3 (08:00→17:00)
[2022-09-05 08:02] LABS: NEUTROPHILS % (MANUAL) 0 % (42-75)
[2022-09-05] MEDS: CYANOCOBALAMIN 1,000 MCG TABLET PO SCH (08:15)
[2022-09-05] MEDS: ENOXAPARIN SODIUM 40 MG/0.4 ML DISP.SYRIN SQ SCH (08:15)
[2022-09-05] MEDS: CLOPIDOGREL 75 MG TABLET PO SCH (08:15)
[2022-09-05] MEDS: MEMANTINE HCL 10 MG TABLET PO SCH ×2 (08:15→20:46)
[2022-09-05] MEDS: LINAGLIPTIN 5 MG TABLET PO SCH (08:15)
[2022-09-05] MEDS: OXYBUTYNIN CHLORIDE 5 MG TABLET PO SCH ×3 (08:15→16:04)
[2022-09-05] MEDS ORDERED: ENOXAPARIN SODIUM 40 MG/0.4 ML DISP.SYRIN SQ SCH (09:00)
[2022-09-05] MEDS ORDERED: SOLIFENACIN SUCCINATE 5 MG TABEC PO SCH (09:00)
[2022-09-05] MEDS ORDERED: POTASSIUM CHLORIDE 20 MEQ POWDER PACKET PO ONE ×2 (09:30→12:00)
[2022-09-05] MEDS: VALPROIC ACID 250 MG CAPSULE PO SCH ×2 (09:32→20:45)
[2022-09-05] MEDS ORDERED: POTA10CA43 PO (10:24)
[2022-09-05] MEDS ORDERED: HYDR12.55 PO (10:24)
[2022-09-05] MEDS: LEVOTHYROXINE SODIUM 150 MCG TABLET PO SCH (10:56)
[2022-09-05] MEDS: MAGNESIUM SULFATE/D5W 100 ML IV SCH ×2 (10:57→11:48)
[2022-09-05 11:33] VITALS: BP 125/66
[2022-09-05] MEDS: IV NS 1000 ML 1,000 ML IV PRN (15:25)
[2022-09-05 16:00] VITALS: BP 121/63
[2022-09-05] MEDS: METFORMIN XR 500 MG TAB.SR.24H PO SCH (17:05)
[2022-09-05] MEDS ORDERED: AMITRIPTYLINE HCL 10 MG TABLET PO SCH (18:00)
[2022-09-05] MEDS ORDERED: AMITRIPTYLINE HCL 10 MG TABLET PO ONE (18:00)
[2022-09-05] MEDS ORDERED: DONEPEZIL 10 MG TABLET PO ONE (18:00)
[2022-09-05] MEDS ORDERED: DONEPEZIL 10 MG TABLET PO SCH (18:00)
[2022-09-05 20:00] VITALS: BP_SYST 130; BP_DIAS 50; BP_DIAS 53
[2022-09-05] MEDS: DOCUSATE SODIUM 100 MG CAPSULE PO SCH (20:45)
[2022-09-05] MEDS: ATORVASTATIN 40 MG TABLET PO SCH (20:46)
[2022-09-06] VITALS: BP 121/59
[2022-09-06] MEDS ORDERED: VANCOMYCIN IV 1,250 MG in IV DEXTROSE 5% 250 ML IV SCH (02:00)
[2022-09-06 03:49] VITALS: BP 116/65
[2022-09-06] MEDS: PIPERACILLIN/TAZO 2.25 G in IV DEXTROSE 5% 50 ML IV SCH ×3 (05:02→17:04)
[2022-09-06] MEDS: PANTOPRAZOLE SODIUM 40 MG TABLET.DR PO SCH (06:02)
[2022-09-06] MEDS: LEVOTHYROXINE SODIUM 150 MCG TABLET PO SCH (06:02)
[2022-09-06 07:07] LABS: HEMATOCRIT 31.1 % (31.2-41.9); MEAN CORPUSCULAR HEMOGLOBIN 31.7 uug (24.7-32.8); MEAN CORPUSCULAR VOLUME 90.1 fL (75.5-95.3); PLATELET COUNT (AUTO) 250 K/uL (179-408)
[2022-09-06 07:32] LABS: CREATININE 1.3 mg/dL (0.6-1.3); POTASSIUM 3.3 mmol/L (3.5-5.1)
[2022-09-06 07:37] LABS: NEUTROPHILS % (MANUAL) 0 % (42-75)
[2022-09-06] MEDS: LINAGLIPTIN 5 MG TABLET PO SCH (08:19)
[2022-09-06] MEDS: OXYBUTYNIN CHLORIDE 5 MG TABLET PO SCH ×3 (08:19→16:12)
[2022-09-06] MEDS: CLOPIDOGREL 75 MG TABLET PO SCH (08:20)
[2022-09-06] MEDS: MEMANTINE HCL 10 MG TABLET PO SCH ×2 (08:20→20:46)
[2022-09-06] MEDS: CYANOCOBALAMIN 1,000 MCG TABLET PO SCH (08:20)
[2022-09-06] MEDS: GLUCERNA SHAKE 237 ML CAN PO SCH ×3 (08:20→16:12)
[2022-09-06] MEDS: ENOXAPARIN SODIUM 40 MG/0.4 ML DISP.SYRIN SQ SCH (08:20)
[2022-09-06] MEDS: VALPROIC ACID 250 MG CAPSULE PO SCH ×2 (08:22→20:46)
[2022-09-06] MEDS: IV NS 1000 ML 1,000 ML IV PRN (08:33)
[2022-09-06] MEDS ORDERED: POTASSIUM CHLORIDE 20 MEQ POWDER PACKET PO ONE (11:00)
[2022-09-06 11:49] VITALS: BP 113/50
[2022-09-06 16:00] VITALS: BP 121/67
[2022-09-06] MEDS: METFORMIN XR 500 MG TAB.SR.24H PO SCH (17:11)
[2022-09-06] MEDS: AMITRIPTYLINE HCL 10 MG TABLET PO SCH (17:11)
[2022-09-06] MEDS: DONEPEZIL 10 MG TABLET PO SCH (17:11)
[2022-09-06 20:00] VITALS: BP 130/71
[2022-09-06] MEDS: ATORVASTATIN 40 MG TABLET PO SCH (20:46)
[2022-09-06] MEDS: DOCUSATE SODIUM 100 MG CAPSULE PO SCH (20:46)
[2022-09-07] MEDS: IV NS 1000 ML 1,000 ML IV PRN ×2 (00:01→14:17)
[2022-09-07] MEDS: PIPERACILLIN/TAZO 2.25 G in IV DEXTROSE 5% 50 ML IV SCH ×5 (00:01→23:58)
[2022-09-07 00:23] VITALS: BP_SYST 131; BP_SYST 136; BP_DIAS 40; BP_DIAS 76
[2022-09-07] MEDS: VANCOMYCIN IV 1,000 MG in IV DEXTROSE 5% 250 ML IV SCH (01:28)
[2022-09-07] MEDS: LEVOTHYROXINE SODIUM 150 MCG TABLET PO SCH (06:05)
[2022-09-07] MEDS: PANTOPRAZOLE SODIUM 40 MG TABLET.DR PO SCH (06:05)
[2022-09-07 06:14] VITALS: BP 128/67
[2022-09-07 07:19] LABS: CARBON DIOXIDE 31 mmol/L (21-32); CHLORIDE 102 mmol/L (98-107); CREATININE 1.4 mg/dL (0.6-1.3); GLUCOSE 189 mg/dL (74-106); POTASSIUM 3.6 mmol/L (3.5-5.1); UREA NITROGEN, BLOOD 10 mg/dL (7-18)
[2022-09-07] MEDS: MEMANTINE HCL 10 MG TABLET PO SCH ×2 (08:06→20:22)
[2022-09-07] MEDS: GLUCERNA SHAKE 237 ML CAN PO SCH ×3 (08:06→16:09)
[2022-09-07] MEDS: OXYBUTYNIN CHLORIDE 5 MG TABLET PO SCH ×3 (08:06→16:09)
[2022-09-07] MEDS: ENOXAPARIN SODIUM 40 MG/0.4 ML DISP.SYRIN SQ SCH (08:06)
[2022-09-07] MEDS: LINAGLIPTIN 5 MG TABLET PO SCH (08:06)
[2022-09-07] MEDS: CLOPIDOGREL 75 MG TABLET PO SCH (08:06)
[2022-09-07] MEDS: CYANOCOBALAMIN 1,000 MCG TABLET PO SCH (08:06)
[2022-09-07] MEDS: VALPROIC ACID 250 MG CAPSULE PO SCH ×2 (08:07→20:22)
[2022-09-07 12:00] VITALS: BP 138/57
[2022-09-07 16:00] VITALS: BP 142/64
[2022-09-07] MEDS: DONEPEZIL 10 MG TABLET PO SCH (17:00)
[2022-09-07] MEDS: AMITRIPTYLINE HCL 10 MG TABLET PO SCH (17:00)
[2022-09-07] MEDS: METFORMIN XR 500 MG TAB.SR.24H PO SCH (17:02)
[2022-09-07] MEDS: ATORVASTATIN 40 MG TABLET PO SCH (20:22)
[2022-09-07] MEDS: DOCUSATE SODIUM 100 MG CAPSULE PO SCH (20:22)
[2022-09-07 20:50] VITALS: BP 151/68
[2022-09-08] MEDS: VANCOMYCIN IV 1,000 MG in IV DEXTROSE 5% 250 ML IV SCH (02:20)
[2022-09-08 05:00] VITALS: BP 136/70
[2022-09-08] MEDS: IV NS 1000 ML 1,000 ML IV PRN (05:31)
[2022-09-08] MEDS: PIPERACILLIN/TAZO 2.25 G in IV DEXTROSE 5% 50 ML IV SCH ×2 (05:31→11:04)
[2022-09-08] MEDS: PANTOPRAZOLE SODIUM 40 MG TABLET.DR PO SCH (06:39)
[2022-09-08] MEDS: LEVOTHYROXINE SODIUM 150 MCG TABLET PO SCH (06:42)
--- NOTE | 2022-09-08 06:42 | NUR ---
PATIENT ASLEEP IN BED. EASILY AROUSABLE BUT QUICKLY FALLS BACK ASLEEP. UNABLE TO TAKE PO MEDS AT THIS TIME.
[2022-09-08 07:28] LABS: CREATININE 1.3 mg/dL (0.6-1.3); POTASSIUM 3.2 mmol/L (3.5-5.1)
[2022-09-08] MEDS: CYANOCOBALAMIN 1,000 MCG TABLET PO SCH (08:14)
[2022-09-08] MEDS: MEMANTINE HCL 10 MG TABLET PO SCH (08:14)
[2022-09-08] MEDS: CLOPIDOGREL 75 MG TABLET PO SCH (08:14)
[2022-09-08] MEDS: LINAGLIPTIN 5 MG TABLET PO SCH (08:14)
[2022-09-08] MEDS: OXYBUTYNIN CHLORIDE 5 MG TABLET PO SCH ×3 (08:14→16:05)
[2022-09-08] MEDS: ENOXAPARIN SODIUM 40 MG/0.4 ML DISP.SYRIN SQ SCH (08:14)
[2022-09-08] MEDS: GLUCERNA SHAKE 237 ML CAN PO SCH ×3 (08:15→16:05)
[2022-09-08] MEDS: VALPROIC ACID 250 MG CAPSULE PO SCH (08:17)
[2022-09-08] MEDS ORDERED: POTASSIUM CHLORIDE 20 MEQ POWDER PACKET PO ONE (10:15)
[2022-09-08 12:00] VITALS: BP 136/47
[2022-09-08 16:00] VITALS: BP 123/45
[2022-09-08] MEDS: AMITRIPTYLINE HCL 10 MG TABLET PO SCH (17:11)
[2022-09-08] MEDS: DONEPEZIL 10 MG TABLET PO SCH (17:11)
[2022-09-08] MEDS: METFORMIN XR 500 MG TAB.SR.24H PO SCH (17:12)
--- NOTE | 2022-09-08 17:12 | NUR ---
dc orders received noted and carried out,dc instruction and education given to the family and pt.dc pt to aru via bed in stable condition
[2022-09-08] MEDS ORDERED: ATOR40TA PO (18:42)
[2022-09-08] MEDS ORDERED: OXYB5TAB16 PO (18:42)
[2022-09-08] MEDS ORDERED: LINA5TAB PO (18:42)
[2022-09-08] MEDS ORDERED: CEphaleXIN 500 MG CAPSULE PO SCH (21:00)
== END 2022-09-08 17:15 | DRG 871 ==
LOC: ER 17:02 → TELE3 20:15 → MEDSURG3 09-07 11:25
PROC: 05H633Z Insertion of Infusion Device into Left Subclavian Vein, Percutaneous Approach (ICD-10-PCS; principal; 2022-09-05)
PROC: B547ZZA Ultrasonography of Left Subclavian Vein, Guidance (ICD-10-PCS; 2022-09-05)
DX: A41.9 Sepsis, unspecified organism (principal); N17.0 Acute kidney failure with tubular necrosis; E44.1 Mild protein-calorie malnutrition; E87.1 Hypo-osmolality and hyponatremia; N39.0 Urinary tract infection, site not specified; I69.354 Hemiplegia and hemiparesis following cerebral infarction affecting left non-dominant side; E03.9 Hypothyroidism, unspecified; E11.22 Type 2 diabetes mellitus with diabetic chronic kidney disease; E78.5 Hyperlipidemia, unspecified; E83.42 Hypomagnesemia; E87.6 Hypokalemia; E88.09 Other disorders of plasma-protein metabolism, not elsewhere classified; N18.9 Chronic kidney disease, unspecified; Z20.822 Contact with and (suspected) exposure to COVID-19; Z79.890 Hormone replacement therapy; Z87.440 Personal history of urinary (tract) infections; B96.89 Other specified bacterial agents as the cause of diseases classified elsewhere; E80.6 Other disorders of bilirubin metabolism; R53.1 Weakness; I12.9 Hypertensive chronic kidney disease with stage 1 through stage 4 chronic kidney disease, or unspecified chronic kidney disease; M21.371 Foot drop, right foot; Z90.710 Acquired absence of both cervix and uterus; Z90.49 Acquired absence of other specified parts of digestive tract; F03.90 Unspecified dementia, unspecified severity, without behavioral disturbance, psychotic disturbance, mood disturbance, and anxiety; I69.392 Facial weakness following cerebral infarction; I69.328 Other speech and language deficits following cerebral infarction; R32 Unspecified urinary incontinence; Z68.31 Body mass index [BMI] 31.0-31.9, adult
CPT/HCPCS: 36415; 70030-TC; 71045; 83605; 83735; 84100; 84443; 84484; 85025; 85730; 87040; 93005; C1758; G0378; J0696; J1650; J2543; J3370; J3475; J7040; J7050; J7060

== ENCOUNTER 2022-09-08 14:44 | Inpatient (IN) | payer MEDICARE, BC ==
[~2022-09-08] VITALS: Ht 167.6 cm; Wt 87.7 kg
[~2022-09-08 14:44] MED LIST changes: -ATOR40TA PO; +HYDR12.55 PO; -LINA5TAB PO; -OXYB5TAB16 PO; +POTA10CA43 PO; -SOLI10TA2 PO
[2022-09-08] MEDS ORDERED: ATOR40TA PO (18:42)
[2022-09-08] MEDS ORDERED: OXYB5TAB16 PO (18:42)
[2022-09-08] MEDS ORDERED: LINA5TAB PO (18:42)
--- NOTE | 2022-09-08 20:00 | NUR ---
RECEIVED PATIENT AWAKE IN BED. PATIENT ADMITTED TO REHAB. ALERT TO SELF. CONFUSED AND DISORIENTED BUT PLEASANT WHEN APPROACHED. VS WNL. NO C/O PAIN. NO RESP. DISTRESS NOTED. BED ALARM ON. CALL LIGHT IN REACH, ALL NEEDS ATTENDED. WILL CONTINUE TO MONITOR AND ASSESS.
[2022-09-08 20:40] VITALS: BP 138/58
[2022-09-08] MEDS: CEphaleXIN 500 MG CAPSULE PO SCH (23:05)
[2022-09-09 04:44] VITALS: BP 109/64
[2022-09-09] MEDS: CEphaleXIN 500 MG CAPSULE PO SCH ×3 (06:00→21:16)
--- NOTE | 2022-09-09 06:29 | NUR ---
PATIENT ASLEEP IN BED. NO CHANGE, ALL NEEDS ATTENDED.
[2022-09-09 07:44] VITALS: BP 155/94
[2022-09-09] MEDS ORDERED: QUETIAPINE FUMARATE 25 MG TABLET PO PRN (08:45)
[2022-09-09] MEDS ORDERED: ACETAMINOPHEN 325 MG TABLET-SA PATIENTS-PAIN ONLY PO PRN (08:45)
[2022-09-09] MEDS ORDERED: CHOLECALCIFEROL 400 UNITS TABLET PO SCH (09:00)
[2022-09-09] MEDS ORDERED: Medication Not On Formulary EA (Mirabegron (Myrbetriq) 50 MG) PO SCH (09:00)
[2022-09-09] MEDS ORDERED: LEVOTHYROXINE SODIUM 125 MCG TABLET PO SCH (09:00)
[2022-09-09] MEDS ORDERED: CYANOCOBALAMIN 100 MCG TABLET PO SCH (09:00)
[2022-09-09] MEDS ORDERED: NUT TX GLUC INTOLER LAC FR SOY PO SCH (09:00)
[2022-09-09] MEDS ORDERED: MEMANTINE HCL 10 MG TABLET PO SCH (09:00)
[2022-09-09] MEDS ORDERED: Medication Not On Formulary EA (Mv-Mn/Iron/FA/Herbal Cmplx#190 (Vitamin D3 Complete Capl PO SCH (09:00)
[2022-09-09] MEDS ORDERED: VALPROIC ACID 250 MG CAPSULE PO SCH (09:11)
[2022-09-09] MEDS ORDERED: ACETAMINOPHEN 325 MG TABLET PO PRN (09:15)
[2022-09-09] MEDS: LINAGLIPTIN 5 MG TABLET PO SCH (09:22)
[2022-09-09] MEDS: CLOPIDOGREL 75 MG TABLET PO SCH (09:22)
[2022-09-09] MEDS: GLUCERNA SHAKE 237 ML CAN PO SCH ×3 (09:22→16:11)
[2022-09-09] MEDS: OXYBUTYNIN CHLORIDE 5 MG TABLET PO SCH ×3 (09:22→16:11)
[2022-09-09] MEDS: ENOXAPARIN SODIUM 40 MG/0.4 ML DISP.SYRIN SQ SCH (09:23)
[2022-09-09] MEDS: CHOLECALCIFEROL 1,000 UNIT TABLET PO SCH (09:28)
[2022-09-09] MEDS: PANTOPRAZOLE SODIUM 40 MG TABLET.DR PO SCH (09:28)
[2022-09-09] MEDS: VALPROIC ACID 250 MG/5 ML LIQUID UDC PO SCH ×2 (09:28→20:30)
[2022-09-09] MEDS: LEVOTHYROXINE SODIUM 150 MCG TABLET PO SCH (09:28)
[2022-09-09] MEDS: MEMANTINE HCL 10 MG TABLET PO SCH ×2 (09:29→20:30)
[2022-09-09] MEDS: CYANOCOBALAMIN 1,000 MCG TABLET PO SCH (09:30)
[2022-09-09] MEDS: POTASSIUM CHLORIDE 10 MEQ TAB.PRT.SR PO SCH ×2 (11:24→16:11)
[2022-09-09] MEDS: HYDROCHLOROTHIAZIDE 12.5 MG CAPSULE PO SCH (12:09)
[2022-09-09] MEDS: DONEPEZIL 10 MG TABLET PO SCH (17:01)
[2022-09-09] MEDS: METFORMIN XR 500 MG TAB.SR.24H PO SCH (17:01)
[2022-09-09 20:00] VITALS: BP 129/66
[2022-09-09] MEDS: DOCUSATE SODIUM 100 MG CAPSULE PO SCH (20:30)
[2022-09-09] MEDS: AMITRIPTYLINE HCL 10 MG TABLET PO SCH (20:30)
[2022-09-10 04:00] VITALS: BP 129/78
--- NOTE | 2022-09-10 04:04 | NUR ---
She was awake, alert, orient x1, She is confused, No diarrhea, small amount of BM noted this shift, tolerated PO medications well, No complain recently during shift. incontinent of BM and Bladder, skin clean and dry, VS stable.
[2022-09-10] MEDS: PANTOPRAZOLE SODIUM 40 MG TABLET.DR PO SCH (06:24)
[2022-09-10] MEDS: LEVOTHYROXINE SODIUM 150 MCG TABLET PO SCH (06:24)
[2022-09-10] MEDS: CEphaleXIN 500 MG CAPSULE PO SCH ×3 (06:24→21:41)
[2022-09-10] MEDS: CHOLECALCIFEROL 1,000 UNIT TABLET PO SCH (08:56)
[2022-09-10] MEDS: MEMANTINE HCL 10 MG TABLET PO SCH ×2 (08:56→20:39)
[2022-09-10] MEDS: POTASSIUM CHLORIDE 10 MEQ TAB.PRT.SR PO SCH ×2 (08:56→17:50)
[2022-09-10] MEDS: HYDROCHLOROTHIAZIDE 12.5 MG CAPSULE PO SCH (08:56)
[2022-09-10] MEDS: OXYBUTYNIN CHLORIDE 5 MG TABLET PO SCH ×3 (08:56→17:50)
[2022-09-10] MEDS: LINAGLIPTIN 5 MG TABLET PO SCH (08:56)
[2022-09-10] MEDS: CLOPIDOGREL 75 MG TABLET PO SCH (08:56)
[2022-09-10] MEDS: CYANOCOBALAMIN 1,000 MCG TABLET PO SCH (08:56)
[2022-09-10] MEDS: VALPROIC ACID 250 MG/5 ML LIQUID UDC PO SCH ×2 (08:57→20:39)
[2022-09-10] MEDS: ENOXAPARIN SODIUM 40 MG/0.4 ML DISP.SYRIN SQ SCH (08:58)
[2022-09-10] MEDS: GLUCERNA SHAKE 237 ML CAN PO SCH ×2 (09:00→11:30)
[2022-09-10] MEDS: PROTEIN SUPPLEMENT (PROSTAT) 30 ML LIQUID PO SCH (11:30)
[2022-09-10 12:00] VITALS: BP 101/60
[2022-09-10 12:55] VITALS: BP 143/68
--- NOTE | 2022-09-10 13:47 | NUR ---
INTERDISCIPLINARY TEAM CONFERENCE
[2022-09-10 16:00] VITALS: BP 119/64
[2022-09-10] MEDS: DONEPEZIL 10 MG TABLET PO SCH (17:50)
[2022-09-10] MEDS: METFORMIN XR 500 MG TAB.SR.24H PO SCH (17:50)
[2022-09-10 20:00] VITALS: BP 121/67
[2022-09-10] MEDS: AMITRIPTYLINE HCL 10 MG TABLET PO SCH (20:39)
[2022-09-10] MEDS: DOCUSATE SODIUM 100 MG CAPSULE PO SCH (20:39)
[2022-09-11 04:00] VITALS: BP 130/69
[2022-09-11] MEDS: CEphaleXIN 500 MG CAPSULE PO SCH ×2 (05:27→13:50)
[2022-09-11] MEDS: PANTOPRAZOLE SODIUM 40 MG TABLET.DR PO SCH (06:06)
[2022-09-11] MEDS: LEVOTHYROXINE SODIUM 125 MCG TABLET PO SCH (06:06)
--- NOTE | 2022-09-11 06:33 | NUR ---
Shift End Report: Slept good. Medicated once with Tylenol for complaint of discomforts with relief. No further complaint presented. All needs attended and met. No significant event reported all night. VS stable.
[2022-09-11 06:59] LABS: HEMATOCRIT 36.7 % (31.2-41.9); MEAN CORPUSCULAR HEMOGLOBIN 31.6 uug (24.7-32.8); MEAN CORPUSCULAR VOLUME 93.8 fL (75.5-95.3); PLATELET COUNT (AUTO) 314 K/uL (179-408)
[2022-09-11 07:34] LABS: BILIRUBIN,TOTAL 0.6 mg/dL (0.2-1.0); CREATININE 1.3 mg/dL (0.6-1.3); MAGNESIUM 2.1 mg/dL (1.8-2.4); PHOSPHOROUS 4.7 mg/dL (2.5-4.9); POTASSIUM 3.7 mmol/L (3.5-5.1)
[2022-09-11 08:01] VITALS: BP 130/71
[2022-09-11] MEDS: PROTEIN SUPPLEMENT (PROSTAT) 30 ML LIQUID PO SCH (08:10)
[2022-09-11] MEDS: CLOPIDOGREL 75 MG TABLET PO SCH (09:14)
[2022-09-11] MEDS: GLUCERNA SHAKE 237 ML CAN PO SCH (09:15)
[2022-09-11] MEDS: LINAGLIPTIN 5 MG TABLET PO SCH (09:15)
[2022-09-11] MEDS: CHOLECALCIFEROL 1,000 UNIT TABLET PO SCH (09:15)
[2022-09-11] MEDS: CYANOCOBALAMIN 1,000 MCG TABLET PO SCH (09:15)
[2022-09-11] MEDS: HYDROCHLOROTHIAZIDE 12.5 MG CAPSULE PO SCH (09:15)
[2022-09-11] MEDS: MEMANTINE HCL 10 MG TABLET PO SCH ×2 (09:15→20:30)
[2022-09-11] MEDS: POTASSIUM CHLORIDE 10 MEQ TAB.PRT.SR PO SCH ×2 (09:17→17:05)
[2022-09-11] MEDS: OXYBUTYNIN CHLORIDE 5 MG TABLET PO SCH ×3 (09:17→17:04)
[2022-09-11] MEDS: VALPROIC ACID 250 MG/5 ML LIQUID UDC PO SCH ×2 (09:18→20:30)
[2022-09-11] MEDS: ENOXAPARIN SODIUM 40 MG/0.4 ML DISP.SYRIN SQ SCH (09:19)
[2022-09-11] MEDS: GUAIFENESIN LA 600 MG TABLET.SA PO SCH ×2 (14:53→20:30)
--- NOTE | 2022-09-11 15:14 | NUR ---
INDIVIDUALIZED PLAN OF CARE
--- NOTE | 2022-09-11 15:54 | NUR ---
Patient alert and verbally communicative, denies any pain. Patient with on and off episodes of cough. Dr. Bonilla gave orders for mucinex 600mg Q12HRS. Patient is afebrile. No acute respiratory distress or desaturation noted. Patient participated in therapy with no c/o any pain. Incontinent, care provided at routine intervals/PRN, all needs anticipated and met.
[2022-09-11] MEDS: METFORMIN XR 500 MG TAB.SR.24H PO SCH (17:05)
[2022-09-11] MEDS: DONEPEZIL 10 MG TABLET PO SCH (17:05)
[2022-09-11 20:00] VITALS: BP 131/64
[2022-09-11] MEDS: DOCUSATE SODIUM 100 MG CAPSULE PO SCH (20:30)
[2022-09-11] MEDS: AMITRIPTYLINE HCL 10 MG TABLET PO SCH (20:30)
[2022-09-11] MEDS: GUAIFENESIN/CODEINE 5 ML LIQUID UDC PO PRN (21:59)
[2022-09-12 04:04] VITALS: BP 126/72
[2022-09-12] MEDS: PANTOPRAZOLE SODIUM 40 MG TABLET.DR PO SCH (06:26)
[2022-09-12] MEDS: LEVOTHYROXINE SODIUM 125 MCG TABLET PO SCH (06:26)
[2022-09-12 07:31] VITALS: BP 135/58
[2022-09-12] MEDS ORDERED: PROTEIN SUPPLEMENT (PROSTAT) 30 ML LIQUID PO SCH (08:00)
[2022-09-12] MEDS: HYDROCHLOROTHIAZIDE 12.5 MG CAPSULE PO SCH (08:08)
[2022-09-12] MEDS: POTASSIUM CHLORIDE 10 MEQ TAB.PRT.SR PO SCH ×2 (08:08→17:19)
[2022-09-12] MEDS: OXYBUTYNIN CHLORIDE 5 MG TABLET PO SCH ×3 (08:08→17:19)
[2022-09-12] MEDS: CHOLECALCIFEROL 1,000 UNIT TABLET PO SCH (08:08)
[2022-09-12] MEDS: LINAGLIPTIN 5 MG TABLET PO SCH (08:09)
[2022-09-12] MEDS: MEMANTINE HCL 10 MG TABLET PO SCH ×2 (08:09→20:18)
[2022-09-12] MEDS: CYANOCOBALAMIN 1,000 MCG TABLET PO SCH (08:09)
[2022-09-12] MEDS: GUAIFENESIN LA 600 MG TABLET.SA PO SCH ×2 (08:09→20:18)
[2022-09-12] MEDS: CLOPIDOGREL 75 MG TABLET PO SCH (08:09)
[2022-09-12] MEDS: GLUCERNA SHAKE 237 ML CAN PO SCH (08:10)
[2022-09-12] MEDS: PROTEIN SUPPLEMENT (PROSTAT) 30 ML LIQUID PO SCH (08:11)
[2022-09-12] MEDS: ENOXAPARIN SODIUM 40 MG/0.4 ML DISP.SYRIN SQ SCH (08:13)
[2022-09-12] MEDS: VALPROIC ACID 250 MG/5 ML LIQUID UDC PO SCH ×2 (08:16→20:18)
[2022-09-12] MEDS: GUAIFENESIN/CODEINE 5 ML LIQUID UDC PO PRN (13:04)
[2022-09-12 15:03] VITALS: BP 119/47
[2022-09-12] MEDS: DONEPEZIL 10 MG TABLET PO SCH (17:19)
--- NOTE | 2022-09-12 18:17 | NUR ---
Patient found in bed with eyes close but easily arousable with touch and tactile stimuli. Alert and orient x4. She denied pain when asked. Normal air movement with no apparent distress noted. She is calm and relax currently. Cooperative, morning medication taken whole. Family members at bedside all day. Patient is a feeder. She ambulates with assist. No new concerns reported. Patient is resting comfortably. Sn, will continue to monitor.
[2022-09-12] MEDS: METFORMIN XR 500 MG TAB.SR.24H PO SCH (18:30)
[2022-09-12 20:00] VITALS: BP 136/44
[2022-09-12] MEDS: AMITRIPTYLINE HCL 10 MG TABLET PO SCH (20:18)
[2022-09-12] MEDS: DOCUSATE SODIUM 100 MG CAPSULE PO SCH (20:18)
[2022-09-13 04:34] VITALS: BP 130/58
[2022-09-13] MEDS: LEVOTHYROXINE SODIUM 125 MCG TABLET PO SCH (06:05)
[2022-09-13] MEDS: PANTOPRAZOLE SODIUM 40 MG TABLET.DR PO SCH (06:05)
[2022-09-13 08:07] VITALS: BP 139/70
[2022-09-13] MEDS: CYANOCOBALAMIN 1,000 MCG TABLET PO SCH (08:44)
[2022-09-13] MEDS: CLOPIDOGREL 75 MG TABLET PO SCH (08:44)
[2022-09-13] MEDS: ENOXAPARIN SODIUM 40 MG/0.4 ML DISP.SYRIN SQ SCH (08:44)
[2022-09-13] MEDS: OXYBUTYNIN CHLORIDE 5 MG TABLET PO SCH ×3 (08:45→17:05)
[2022-09-13] MEDS: GUAIFENESIN LA 600 MG TABLET.SA PO SCH ×2 (08:45→20:36)
[2022-09-13] MEDS: HYDROCHLOROTHIAZIDE 12.5 MG CAPSULE PO SCH (08:45)
[2022-09-13] MEDS: LINAGLIPTIN 5 MG TABLET PO SCH (08:45)
[2022-09-13] MEDS: CHOLECALCIFEROL 1,000 UNIT TABLET PO SCH (08:45)
[2022-09-13] MEDS: MEMANTINE HCL 10 MG TABLET PO SCH ×2 (08:45→20:37)
[2022-09-13] MEDS: GLUCERNA SHAKE 237 ML CAN PO SCH (08:46)
[2022-09-13] MEDS: POTASSIUM CHLORIDE 10 MEQ TAB.PRT.SR PO SCH ×2 (08:46→17:04)
[2022-09-13] MEDS: PROTEIN SUPPLEMENT (PROSTAT) 30 ML LIQUID PO SCH (08:46)
[2022-09-13] MEDS: VALPROIC ACID 250 MG/5 ML LIQUID UDC PO SCH ×2 (08:46→20:35)
[2022-09-13] MEDS ORDERED: ALBUTEROL SULFATE 2.5 MG/3 ML NEBU NEB PRN (10:00)
[2022-09-13] MEDS: FLUTICASONE/VILANTEROL 1 EACH BLST.W.DEV INH SCH (10:25)
[2022-09-13 16:00] VITALS: BP 116/59
[2022-09-13] MEDS: METFORMIN XR 500 MG TAB.SR.24H PO SCH (17:04)
[2022-09-13] MEDS: DONEPEZIL 10 MG TABLET PO SCH (17:05)
[2022-09-13 20:30] VITALS: BP 125/70
[2022-09-13] MEDS: DOCUSATE SODIUM 100 MG CAPSULE PO SCH (20:36)
[2022-09-13] MEDS: AMITRIPTYLINE HCL 10 MG TABLET PO SCH (20:36)
[2022-09-13] MEDS: CLOTRIMAZOLE/BETAMET DIPROP CREAM 15 GM TUBE TOP SCH (21:00)
[2022-09-14 04:22] VITALS: BP 125/69
[2022-09-14] MEDS: PANTOPRAZOLE SODIUM 40 MG TABLET.DR PO SCH (06:20)
[2022-09-14] MEDS: LEVOTHYROXINE SODIUM 125 MCG TABLET PO SCH (06:20)
--- NOTE | 2022-09-14 06:28 | NUR ---
Patient slept well, no acute distress noted. Denies chest pain. Needs assessed and attended to. Call light within easy reach.
[2022-09-14 08:03] VITALS: BP 143/89
[2022-09-14] MEDS: HYDROCHLOROTHIAZIDE 12.5 MG CAPSULE PO SCH (08:04)
[2022-09-14] MEDS: POTASSIUM CHLORIDE 10 MEQ TAB.PRT.SR PO SCH ×2 (08:04→16:21)
[2022-09-14] MEDS: OXYBUTYNIN CHLORIDE 5 MG TABLET PO SCH ×3 (08:04→16:21)
[2022-09-14] MEDS: CHOLECALCIFEROL 1,000 UNIT TABLET PO SCH (08:04)
[2022-09-14] MEDS: CYANOCOBALAMIN 1,000 MCG TABLET PO SCH (08:04)
[2022-09-14] MEDS: LINAGLIPTIN 5 MG TABLET PO SCH (08:05)
[2022-09-14] MEDS: PROTEIN SUPPLEMENT (PROSTAT) 30 ML LIQUID PO SCH (08:05)
[2022-09-14] MEDS: GUAIFENESIN LA 600 MG TABLET.SA PO SCH ×2 (08:05→20:42)
[2022-09-14] MEDS: VALPROIC ACID 250 MG/5 ML LIQUID UDC PO SCH ×2 (08:05→20:42)
[2022-09-14] MEDS: FLUTICASONE/VILANTEROL 1 EACH BLST.W.DEV INH SCH (08:05)
[2022-09-14] MEDS: GLUCERNA SHAKE 237 ML CAN PO SCH (08:06)
[2022-09-14] MEDS: ENOXAPARIN SODIUM 40 MG/0.4 ML DISP.SYRIN SQ SCH (08:07)
[2022-09-14] MEDS: MEMANTINE HCL 10 MG TABLET PO SCH ×2 (08:09→20:42)
[2022-09-14] MEDS: CLOPIDOGREL 75 MG TABLET PO SCH (08:09)
[2022-09-14] MEDS: REMEDY ESSENTIAL ZINC PASTE 113 GM TOP PRN (08:10)
[2022-09-14] MEDS: CLOTRIMAZOLE/BETAMET DIPROP CREAM 15 GM TUBE TOP SCH ×2 (08:10→20:43)
[2022-09-14] MEDS ORDERED: MAG HYDROX/AL HYDROX/SIMETH 30 ML LIQUID UDC PO PRN (16:00)
[2022-09-14 16:30] VITALS: BP 146/68
[2022-09-14] MEDS: METFORMIN XR 500 MG TAB.SR.24H PO SCH (17:30)
[2022-09-14] MEDS: DONEPEZIL 10 MG TABLET PO SCH (17:30)
--- NOTE | 2022-09-14 17:45 | NUR ---
no distress noted, patient tolerated PT well. continue with tx to groin area rashes as ordered.
[2022-09-14 20:16] VITALS: BP 146/73
[2022-09-14] MEDS: AMITRIPTYLINE HCL 10 MG TABLET PO SCH (20:42)
[2022-09-14] MEDS: DOCUSATE SODIUM 100 MG CAPSULE PO SCH (20:42)
[2022-09-15 04:15] VITALS: BP 149/74
[2022-09-15] MEDS: LEVOTHYROXINE SODIUM 125 MCG TABLET PO SCH (06:03)
[2022-09-15] MEDS: PANTOPRAZOLE SODIUM 40 MG TABLET.DR PO SCH (06:04)
--- NOTE | 2022-09-15 06:54 | NUR ---
Shift End Report: Getting more alert. No complaint presented all night except refused using Pure wick in placed. Skin excoriations/redness on perineal area/bilateral groin treatment continuous.No significant event reported all night. Continue current rehab plan of care.
[2022-09-15] MEDS: LINAGLIPTIN 5 MG TABLET PO SCH (08:00)
[2022-09-15] MEDS: OXYBUTYNIN CHLORIDE 5 MG TABLET PO SCH ×3 (08:00→16:41)
[2022-09-15] MEDS: MEMANTINE HCL 10 MG TABLET PO SCH ×2 (08:00→20:29)
[2022-09-15] MEDS: GUAIFENESIN LA 600 MG TABLET.SA PO SCH ×2 (08:00→20:29)
[2022-09-15] MEDS: HYDROCHLOROTHIAZIDE 12.5 MG CAPSULE PO SCH (08:00)
[2022-09-15] MEDS: CLOPIDOGREL 75 MG TABLET PO SCH (08:00)
[2022-09-15] MEDS: CHOLECALCIFEROL 1,000 UNIT TABLET PO SCH (08:00)
[2022-09-15] MEDS: CYANOCOBALAMIN 1,000 MCG TABLET PO SCH (08:00)
[2022-09-15] MEDS: POTASSIUM CHLORIDE 10 MEQ TAB.PRT.SR PO SCH ×2 (08:00→16:42)
[2022-09-15] MEDS: ENOXAPARIN SODIUM 40 MG/0.4 ML DISP.SYRIN SQ SCH (08:01)
[2022-09-15] MEDS: VALPROIC ACID 250 MG/5 ML LIQUID UDC PO SCH ×2 (08:02→20:29)
[2022-09-15] MEDS: FLUTICASONE/VILANTEROL 1 EACH BLST.W.DEV INH SCH (08:02)
[2022-09-15] MEDS: PROTEIN SUPPLEMENT (PROSTAT) 30 ML LIQUID PO SCH (08:02)
[2022-09-15] MEDS: GLUCERNA SHAKE 237 ML CAN PO SCH ×3 (08:02→16:43)
[2022-09-15] MEDS: CLOTRIMAZOLE/BETAMET DIPROP CREAM 15 GM TUBE TOP SCH ×2 (08:03→20:30)
[2022-09-15 08:14] VITALS: BP 156/79
[2022-09-15] MEDS: ARGININE/GLUTAMINE/CALCIUM BMB 1 EACH POWD.PACK PO SCH (11:34)
--- NOTE | 2022-09-15 13:47 | NUR ---
Patient is alert to self, and family, no sob, respirations are even nonlabored,skin warm and dry to touch. Addendum: 09/15/22 at 1359 by ANAMIKA FIERRO RN, RN patient noted with multiple loose BMs, Dr Bonilla made aware and stool sample sent to lab for c-diff, confirmed with shift leader the stool softener was not given. per shift leader, patient had loose BMs at night as well. continue to wash with soap and water the perineal area, applied cream as ordered, with some effectiveness noted to redness to perineal area. kept clean and dry, both heels floated on pillows off load while in bed, patient put on pureweck to keep her dry, however patient took it out and refused. Addendum: 09/15/22 at 1412 by ANAMIKA FIERRO RN, RN per nursing patient has on and off diarrhea from couple days.
[2022-09-15 15:52] VITALS: BP 148/68
[2022-09-15] MEDS: NUTRISOURCE FIBER 4 GM PACKET PO SCH (16:44)
[2022-09-15] MEDS: DONEPEZIL 10 MG TABLET PO SCH (17:33)
[2022-09-15] MEDS: METFORMIN XR 500 MG TAB.SR.24H PO SCH (17:33)
[2022-09-15] MEDS: AMITRIPTYLINE HCL 10 MG TABLET PO SCH (20:29)
[2022-09-15 20:42] VITALS: BP 130/55
[2022-09-16 04:20] VITALS: BP 147/87
[2022-09-16] MEDS: LEVOTHYROXINE SODIUM 125 MCG TABLET PO SCH (06:02)
[2022-09-16] MEDS: PANTOPRAZOLE SODIUM 40 MG TABLET.DR PO SCH (06:02)
--- NOTE | 2022-09-16 06:24 | NUR ---
Shift end report: Vs stable. Contact isolation maintained and observed for C-diff precaution. Kept comfortable at all times. All needs attended and met. No significant event reported all night. Continue current rehab plan of care.
[2022-09-16 07:45] VITALS: BP 124/78
[2022-09-16] MEDS: PROTEIN SUPPLEMENT (PROSTAT) 30 ML LIQUID PO SCH (08:21)
[2022-09-16] MEDS: LINAGLIPTIN 5 MG TABLET PO SCH (08:21)
[2022-09-16] MEDS: CHOLECALCIFEROL 1,000 UNIT TABLET PO SCH (08:21)
[2022-09-16] MEDS: HYDROCHLOROTHIAZIDE 12.5 MG CAPSULE PO SCH (08:21)
[2022-09-16] MEDS: MEMANTINE HCL 10 MG TABLET PO SCH ×2 (08:21→20:28)
[2022-09-16] MEDS: GUAIFENESIN LA 600 MG TABLET.SA PO SCH ×2 (08:21→20:28)
[2022-09-16] MEDS: OXYBUTYNIN CHLORIDE 5 MG TABLET PO SCH ×3 (08:21→16:32)
[2022-09-16] MEDS: VALPROIC ACID 250 MG/5 ML LIQUID UDC PO SCH ×2 (08:22→20:28)
[2022-09-16] MEDS: CLOPIDOGREL 75 MG TABLET PO SCH (08:22)
[2022-09-16] MEDS: POTASSIUM CHLORIDE 10 MEQ TAB.PRT.SR PO SCH ×2 (08:22→16:32)
[2022-09-16] MEDS: CYANOCOBALAMIN 1,000 MCG TABLET PO SCH (08:22)
[2022-09-16] MEDS: ENOXAPARIN SODIUM 40 MG/0.4 ML DISP.SYRIN SQ SCH (08:24)
[2022-09-16] MEDS: CLOTRIMAZOLE/BETAMET DIPROP CREAM 15 GM TUBE TOP SCH ×2 (08:26→20:29)
[2022-09-16] MEDS: FLUTICASONE/VILANTEROL 1 EACH BLST.W.DEV INH SCH (08:35)
[2022-09-16] MEDS: GLUCERNA SHAKE 237 ML CAN PO SCH ×2 (09:15→17:05)
[2022-09-16] MEDS: ARGININE/GLUTAMINE/CALCIUM BMB 1 EACH POWD.PACK PO SCH (09:15)
[2022-09-16] MEDS: NUTRISOURCE FIBER 4 GM PACKET PO SCH ×2 (09:16→17:05)
[2022-09-16] MEDS: METFORMIN XR 500 MG TAB.SR.24H PO SCH (17:31)
[2022-09-16] MEDS: DONEPEZIL 10 MG TABLET PO SCH (17:31)
--- NOTE | 2022-09-16 17:39 | NUR ---
Patient is alert but confused, direct as needed. Assistance with feeding. Partially met goals with scheduled PT/OT. Medications were given at set scheduled time. Repositioned every 2 hours. Kept clean and dry.
[2022-09-16 20:00] VITALS: BP 116/67
[2022-09-16] MEDS: AMITRIPTYLINE HCL 10 MG TABLET PO SCH (20:28)
[2022-09-17 04:00] VITALS: BP 143/68
[2022-09-17] MEDS: LEVOTHYROXINE SODIUM 125 MCG TABLET PO SCH (06:15)
[2022-09-17] MEDS: PANTOPRAZOLE SODIUM 40 MG TABLET.DR PO SCH (06:15)
[2022-09-17 08:17] VITALS: BP 110/67
[2022-09-17] MEDS: OXYBUTYNIN CHLORIDE 5 MG TABLET PO SCH ×3 (08:55→17:07)
[2022-09-17] MEDS: MEMANTINE HCL 10 MG TABLET PO SCH ×2 (08:55→20:24)
[2022-09-17] MEDS: LINAGLIPTIN 5 MG TABLET PO SCH (08:55)
[2022-09-17] MEDS: GUAIFENESIN LA 600 MG TABLET.SA PO SCH ×2 (08:55→20:24)
[2022-09-17] MEDS: CHOLECALCIFEROL 1,000 UNIT TABLET PO SCH (08:55)
[2022-09-17] MEDS: CLOPIDOGREL 75 MG TABLET PO SCH (08:55)
[2022-09-17] MEDS: POTASSIUM CHLORIDE 10 MEQ TAB.PRT.SR PO SCH ×2 (08:56→17:07)
[2022-09-17] MEDS: CYANOCOBALAMIN 1,000 MCG TABLET PO SCH (08:56)
[2022-09-17] MEDS: HYDROCHLOROTHIAZIDE 12.5 MG CAPSULE PO SCH (08:56)
[2022-09-17] MEDS: VALPROIC ACID 250 MG/5 ML LIQUID UDC PO SCH ×2 (08:57→20:24)
[2022-09-17] MEDS: FLUTICASONE/VILANTEROL 1 EACH BLST.W.DEV INH SCH (08:59)
[2022-09-17] MEDS: ENOXAPARIN SODIUM 40 MG/0.4 ML DISP.SYRIN SQ SCH (08:59)
[2022-09-17] MEDS: REMEDY ESSENTIAL ZINC PASTE 113 GM TOP PRN (08:59)
[2022-09-17] MEDS: PROTEIN SUPPLEMENT (PROSTAT) 30 ML LIQUID PO SCH (09:00)
[2022-09-17] MEDS: CLOTRIMAZOLE/BETAMET DIPROP CREAM 15 GM TUBE TOP SCH ×2 (09:00→20:25)
[2022-09-17] MEDS: GLUCERNA SHAKE 237 ML CAN PO SCH ×2 (09:01→17:08)
[2022-09-17] MEDS: ARGININE/GLUTAMINE/CALCIUM BMB 1 EACH POWD.PACK PO SCH (09:01)
[2022-09-17] MEDS: NUTRISOURCE FIBER 4 GM PACKET PO SCH ×2 (09:02→17:08)
--- NOTE | 2022-09-17 13:26 | NUR ---
INTERDISCIPLINARY TEAM CONFERENCE
--- NOTE | 2022-09-17 15:43 | NUR ---
0720- The patient is aox2. The patient is on room air. The patient has no complains of pain. The patient is incontinent and requires some assistance. The patient has no IV access. Call light within reach. Two side rails up and bed alarm on, and bed at lowest position. Will continue to monitor throughout the shift. 0900- The patient's daughter at bedside. The patient has no complains of pain. Will continue to monitor throughout the shift. All scheduled medicine given. No unusual events at this time. Will continue to monitor throughout the shift.
[2022-09-17 15:44] VITALS: BP 123/59
[2022-09-17] MEDS: DONEPEZIL 10 MG TABLET PO SCH (18:48)
[2022-09-17] MEDS: METFORMIN XR 500 MG TAB.SR.24H PO SCH (18:48)
[2022-09-17 20:00] VITALS: BP 131/77
[2022-09-17] MEDS: AMITRIPTYLINE HCL 10 MG TABLET PO SCH (20:24)
[2022-09-18 04:00] VITALS: BP 130/71
[2022-09-18] MEDS: LEVOTHYROXINE SODIUM 125 MCG TABLET PO SCH (05:46)
[2022-09-18] MEDS: PANTOPRAZOLE SODIUM 40 MG TABLET.DR PO SCH (05:46)
--- NOTE | 2022-09-18 05:48 | NUR ---
Shift End Report: No significant event reported. All needs attended and met. Continue care as planned.
[2022-09-18 08:00] VITALS: BP 135/57
[2022-09-18] MEDS: POTASSIUM CHLORIDE 10 MEQ TAB.PRT.SR PO SCH ×2 (08:48→16:30)
[2022-09-18] MEDS: MEMANTINE HCL 10 MG TABLET PO SCH ×2 (08:48→20:19)
[2022-09-18] MEDS: LINAGLIPTIN 5 MG TABLET PO SCH (08:48)
[2022-09-18] MEDS: CLOPIDOGREL 75 MG TABLET PO SCH (08:48)
[2022-09-18] MEDS: CYANOCOBALAMIN 1,000 MCG TABLET PO SCH (08:48)
[2022-09-18] MEDS: OXYBUTYNIN CHLORIDE 5 MG TABLET PO SCH ×3 (08:48→16:30)
[2022-09-18] MEDS: GUAIFENESIN LA 600 MG TABLET.SA PO SCH ×2 (08:49→20:19)
[2022-09-18] MEDS: VALPROIC ACID 250 MG/5 ML LIQUID UDC PO SCH ×2 (08:49→20:19)
[2022-09-18] MEDS: NUTRISOURCE FIBER 4 GM PACKET PO SCH ×2 (08:51→17:28)
[2022-09-18] MEDS: CHOLECALCIFEROL 1,000 UNIT TABLET PO SCH (08:51)
[2022-09-18] MEDS: ENOXAPARIN SODIUM 40 MG/0.4 ML DISP.SYRIN SQ SCH (08:51)
[2022-09-18] MEDS: HYDROCHLOROTHIAZIDE 12.5 MG CAPSULE PO SCH (08:52)
[2022-09-18] MEDS: REMEDY ESSENTIAL ZINC PASTE 113 GM TOP PRN (08:56)
[2022-09-18] MEDS: CLOTRIMAZOLE/BETAMET DIPROP CREAM 15 GM TUBE TOP SCH ×2 (08:56→20:23)
[2022-09-18] MEDS: PROTEIN SUPPLEMENT (PROSTAT) 30 ML LIQUID PO SCH (08:57)
[2022-09-18] MEDS: FLUTICASONE/VILANTEROL 1 EACH BLST.W.DEV INH SCH (08:57)
[2022-09-18] MEDS: GLUCERNA SHAKE 237 ML CAN PO SCH ×2 (09:18→17:27)
[2022-09-18] MEDS: ARGININE/GLUTAMINE/CALCIUM BMB 1 EACH POWD.PACK PO SCH (09:18)
[2022-09-18 15:59] VITALS: BP 136/46
[2022-09-18 16:01] VITALS: BP 136/46
[2022-09-18] MEDS: DONEPEZIL 10 MG TABLET PO SCH (17:28)
[2022-09-18] MEDS: METFORMIN XR 500 MG TAB.SR.24H PO SCH (17:29)
[2022-09-18 20:00] VITALS: BP 127/57
[2022-09-18] MEDS: AMITRIPTYLINE HCL 10 MG TABLET PO SCH (20:19)
[2022-09-19 04:00] VITALS: BP 121/64
--- NOTE | 2022-09-19 04:28 | NUR ---
Awake alert and oriented x2-3 with some periods of forgetfulness. Tolerated po meds well. No acute distress noted. Fall precautions maintained. Siderails up for safety. Denies any pain nor any discomfort. Incontinent of bowel and bladder. BM noted this shift. Will monitor patient. Call carbajal within reach. VSS.
[2022-09-19] MEDS: LEVOTHYROXINE SODIUM 125 MCG TABLET PO SCH (06:08)
[2022-09-19] MEDS: PANTOPRAZOLE SODIUM 40 MG TABLET.DR PO SCH (06:08)
[2022-09-19 07:47] VITALS: BP 134/50
[2022-09-19] MEDS: VALPROIC ACID 250 MG/5 ML LIQUID UDC PO SCH ×2 (08:05→20:14)
[2022-09-19] MEDS: CLOPIDOGREL 75 MG TABLET PO SCH (08:05)
[2022-09-19] MEDS: HYDROCHLOROTHIAZIDE 12.5 MG CAPSULE PO SCH (08:05)
[2022-09-19] MEDS: ENOXAPARIN SODIUM 40 MG/0.4 ML DISP.SYRIN SQ SCH (08:05)
[2022-09-19] MEDS: LINAGLIPTIN 5 MG TABLET PO SCH (08:05)
[2022-09-19] MEDS: OXYBUTYNIN CHLORIDE 5 MG TABLET PO SCH ×3 (08:05→16:26)
[2022-09-19] MEDS: CYANOCOBALAMIN 1,000 MCG TABLET PO SCH (08:05)
[2022-09-19] MEDS: MEMANTINE HCL 10 MG TABLET PO SCH ×2 (08:05→20:14)
[2022-09-19] MEDS: CHOLECALCIFEROL 1,000 UNIT TABLET PO SCH (08:05)
[2022-09-19] MEDS: POTASSIUM CHLORIDE 10 MEQ TAB.PRT.SR PO SCH ×2 (08:05→16:26)
[2022-09-19] MEDS: GUAIFENESIN LA 600 MG TABLET.SA PO SCH ×2 (08:05→20:14)
[2022-09-19] MEDS: NUTRISOURCE FIBER 4 GM PACKET PO SCH ×2 (08:05→16:26)
[2022-09-19] MEDS: ARGININE/GLUTAMINE/CALCIUM BMB 1 EACH POWD.PACK PO SCH (08:06)
[2022-09-19] MEDS: GLUCERNA SHAKE 237 ML CAN PO SCH ×2 (08:06→16:26)
[2022-09-19] MEDS: PROTEIN SUPPLEMENT (PROSTAT) 30 ML LIQUID PO SCH (08:06)
[2022-09-19] MEDS: FLUTICASONE/VILANTEROL 1 EACH BLST.W.DEV INH SCH (08:33)
[2022-09-19] MEDS: CLOTRIMAZOLE/BETAMET DIPROP CREAM 15 GM TUBE TOP SCH ×2 (08:34→20:14)
--- NOTE | 2022-09-19 13:14 | NUR ---
INTERDISCIPLINARY TEAM CONFERENCE
[2022-09-19 16:19] VITALS: BP 137/52
[2022-09-19] MEDS: DONEPEZIL 10 MG TABLET PO SCH (17:00)
[2022-09-19] MEDS: METFORMIN XR 500 MG TAB.SR.24H PO SCH (17:00)
[2022-09-19] MEDS: REMEDY ESSENTIAL ZINC PASTE 113 GM TOP PRN (20:14)
[2022-09-19] MEDS: AMITRIPTYLINE HCL 10 MG TABLET PO SCH (20:14)
[2022-09-19 21:32] VITALS: BP 132/57
[2022-09-20 05:07] VITALS: BP_SYST 115; BP_SYST 132; BP_DIAS 57; BP_DIAS 63
[2022-09-20] MEDS: PANTOPRAZOLE SODIUM 40 MG TABLET.DR PO SCH (05:58)
[2022-09-20] MEDS: LEVOTHYROXINE SODIUM 125 MCG TABLET PO SCH (05:58)
[2022-09-20 07:22] VITALS: BP 140/55
[2022-09-20] MEDS: GLUCERNA SHAKE 237 ML CAN PO SCH ×2 (08:01→16:49)
[2022-09-20] MEDS: PROTEIN SUPPLEMENT (PROSTAT) 30 ML LIQUID PO SCH (08:02)
[2022-09-20] MEDS: ARGININE/GLUTAMINE/CALCIUM BMB 1 EACH POWD.PACK PO SCH (08:02)
[2022-09-20] MEDS: FLUTICASONE/VILANTEROL 1 EACH BLST.W.DEV INH SCH (08:03)
[2022-09-20] MEDS: CYANOCOBALAMIN 1,000 MCG TABLET PO SCH (08:04)
[2022-09-20] MEDS: OXYBUTYNIN CHLORIDE 5 MG TABLET PO SCH ×3 (08:04→16:48)
[2022-09-20] MEDS: HYDROCHLOROTHIAZIDE 12.5 MG CAPSULE PO SCH (08:04)
[2022-09-20] MEDS: CLOPIDOGREL 75 MG TABLET PO SCH (08:04)
[2022-09-20] MEDS: LINAGLIPTIN 5 MG TABLET PO SCH (08:04)
[2022-09-20] MEDS: VALPROIC ACID 250 MG/5 ML LIQUID UDC PO SCH ×2 (08:04→20:57)
[2022-09-20] MEDS: GUAIFENESIN LA 600 MG TABLET.SA PO SCH ×2 (08:04→20:58)
[2022-09-20] MEDS: POTASSIUM CHLORIDE 10 MEQ TAB.PRT.SR PO SCH ×2 (08:04→16:48)
[2022-09-20] MEDS: CHOLECALCIFEROL 1,000 UNIT TABLET PO SCH (08:05)
[2022-09-20] MEDS: MEMANTINE HCL 10 MG TABLET PO SCH ×2 (08:05→20:58)
[2022-09-20] MEDS: NUTRISOURCE FIBER 4 GM PACKET PO SCH ×2 (08:06→16:49)
[2022-09-20] MEDS: ENOXAPARIN SODIUM 40 MG/0.4 ML DISP.SYRIN SQ SCH (08:07)
[2022-09-20] MEDS: CLOTRIMAZOLE/BETAMET DIPROP CREAM 15 GM TUBE TOP SCH ×2 (08:08→20:58)
[2022-09-20 16:00] VITALS: BP 133/79
[2022-09-20] MEDS: DONEPEZIL 10 MG TABLET PO SCH (17:02)
[2022-09-20] MEDS: METFORMIN XR 500 MG TAB.SR.24H PO SCH (17:03)
[2022-09-20 20:29] VITALS: BP 144/80
[2022-09-20] MEDS: AMITRIPTYLINE HCL 10 MG TABLET PO SCH (20:58)
[2022-09-20 22:34] LABS: *BILIRUBIN,URIN NEGATIVE (NEGATIVE); *CLARITY,URINE SLIGHTLY CLOUDY (CLEAR); *COLOR,URINE LIGHT YELLOW (YELLOW); *KETONES,URINE NEGATIVE (NEGATIVE); *UROBILINOGEN,URINE 0.2 E.U./dl (NORMAL); LEUKOCYTE ESTERASE ,URINE 3+ (NEGATIVE); NITRITE, URINE POSITIVE (NEGATIVE); UGLUCOSE NEGATIVE (NEGATIVE)
[2022-09-20 22:44] LABS: *BLOOD, URINE TRACE (NEGATIVE)
--- NOTE | 2022-09-20 23:52 | NUR ---
patient noted with malodorous of urine, and patient complained burning sensations upon urination, however no hematuria noted, patient is afebrile, no acute distress noted, good cadence care provided, increased po fluids as tolerated, no diarrhea noted, continue to monitor.
[2022-09-21 02:33] LABS: BACTERIA,URINE MANY /HPF (NONE SEEN); WBC,URINE TNTC /HPF (0-3)
[2022-09-21 02:34] LABS: SQUAMOUS EPITHELIAL CELL,UR FEW /HPF (NONE SEEN)
[2022-09-21] MEDS: PANTOPRAZOLE SODIUM 40 MG TABLET.DR PO SCH (06:02)
[2022-09-21] MEDS: LEVOTHYROXINE SODIUM 125 MCG TABLET PO SCH (06:02)
[2022-09-21 06:23] VITALS: BP 121/54
[2022-09-21 06:26] LABS: HEMATOCRIT 37.3 % (31.2-41.9); MEAN CORPUSCULAR HEMOGLOBIN 31.4 uug (24.7-32.8); MEAN CORPUSCULAR VOLUME 90.8 fL (75.5-95.3); PLATELET COUNT (AUTO) 409 K/uL (179-408)
[2022-09-21 06:37] LABS: ALANINE AMINOTRANSFERASE 42 U/L (14-59); ALKALINE PHOSPHATASE 102 U/L (50-136); ASPARTATE AMINOTRANSFERASE 30 U/L (15-37); BILIRUBIN,TOTAL 0.6 mg/dL (0.2-1.0); CARBON DIOXIDE 27 mmol/L (21-32); CHLORIDE 100 mmol/L (98-107); CREATININE 1.4 mg/dL (0.6-1.3); GLUCOSE 162 mg/dL (74-106); MAGNESIUM 1.9 mg/dL (1.8-2.4); POTASSIUM 3.1 mmol/L (3.5-5.1); TOTAL PROTEIN, SERUM 7.1 g/dL (6.4-8.2); UREA NITROGEN, BLOOD 26 mg/dL (7-18)
[2022-09-21 07:26] VITALS: BP 116/67
[2022-09-21] MEDS: POTASSIUM CHLORIDE 10 MEQ TAB.PRT.SR PO SCH ×2 (08:16→16:07)
[2022-09-21] MEDS: GUAIFENESIN LA 600 MG TABLET.SA PO SCH ×2 (08:16→21:27)
[2022-09-21] MEDS: VALPROIC ACID 250 MG/5 ML LIQUID UDC PO SCH ×2 (08:16→21:27)
[2022-09-21] MEDS: ARGININE/GLUTAMINE/CALCIUM BMB 1 EACH POWD.PACK PO SCH (08:16)
[2022-09-21] MEDS: PROTEIN SUPPLEMENT (PROSTAT) 30 ML LIQUID PO SCH (08:16)
[2022-09-21] MEDS: CYANOCOBALAMIN 1,000 MCG TABLET PO SCH (08:16)
[2022-09-21] MEDS: CHOLECALCIFEROL 1,000 UNIT TABLET PO SCH (08:17)
[2022-09-21] MEDS: NUTRISOURCE FIBER 4 GM PACKET PO SCH ×2 (08:17→16:07)
[2022-09-21] MEDS: CLOPIDOGREL 75 MG TABLET PO SCH (08:17)
[2022-09-21] MEDS: LINAGLIPTIN 5 MG TABLET PO SCH (08:17)
[2022-09-21] MEDS: MEMANTINE HCL 10 MG TABLET PO SCH ×2 (08:17→21:27)
[2022-09-21] MEDS: OXYBUTYNIN CHLORIDE 5 MG TABLET PO SCH ×3 (08:17→16:07)
[2022-09-21] MEDS: HYDROCHLOROTHIAZIDE 12.5 MG CAPSULE PO SCH (08:17)
[2022-09-21] MEDS: GLUCERNA SHAKE 237 ML CAN PO SCH ×2 (08:18→16:07)
[2022-09-21] MEDS: ENOXAPARIN SODIUM 40 MG/0.4 ML DISP.SYRIN SQ SCH (08:18)
[2022-09-21] MEDS: FLUTICASONE/VILANTEROL 1 EACH BLST.W.DEV INH SCH (08:23)
[2022-09-21] MEDS ORDERED: POTASSIUM CHLORIDE 20 MEQ POWDER PACKET PO ONE (10:00)
[2022-09-21] MEDS: CEFTRIAXONE 1 G in IV DEXTROSE 5% 50 ML IV SCH (11:52)
[2022-09-21 16:11] VITALS: BP 141/64
[2022-09-21] MEDS: DONEPEZIL 10 MG TABLET PO SCH (17:03)
[2022-09-21] MEDS: METFORMIN XR 500 MG TAB.SR.24H PO SCH (17:03)
[2022-09-21 20:40] VITALS: BP 108/47
[2022-09-21] MEDS: AMITRIPTYLINE HCL 10 MG TABLET PO SCH (21:27)
[2022-09-22 04:10] VITALS: BP 115/66
[2022-09-22] MEDS: PANTOPRAZOLE SODIUM 40 MG TABLET.DR PO SCH (06:05)
[2022-09-22] MEDS: LEVOTHYROXINE SODIUM 125 MCG TABLET PO SCH (06:10)
[2022-09-22 06:57] LABS: CARBON DIOXIDE 26 mmol/L (21-32); CHLORIDE 102 mmol/L (98-107); CREATININE 1.5 mg/dL (0.6-1.3); GLUCOSE 165 mg/dL (74-106); POTASSIUM 3.1 mmol/L (3.5-5.1); UREA NITROGEN, BLOOD 22 mg/dL (7-18)
[2022-09-22 08:00] VITALS: BP 129/48
[2022-09-22] MEDS: PROTEIN SUPPLEMENT (PROSTAT) 30 ML LIQUID PO SCH (08:25)
[2022-09-22] MEDS: VALPROIC ACID 250 MG/5 ML LIQUID UDC PO SCH ×2 (08:26→20:32)
[2022-09-22] MEDS: MEMANTINE HCL 10 MG TABLET PO SCH ×2 (08:26→20:32)
[2022-09-22] MEDS: CYANOCOBALAMIN 1,000 MCG TABLET PO SCH (08:26)
[2022-09-22] MEDS: OXYBUTYNIN CHLORIDE 5 MG TABLET PO SCH ×3 (08:26→16:33)
[2022-09-22] MEDS: CLOPIDOGREL 75 MG TABLET PO SCH (08:27)
[2022-09-22] MEDS: GLUCERNA SHAKE 237 ML CAN PO SCH ×2 (08:27→17:08)
[2022-09-22] MEDS: HYDROCHLOROTHIAZIDE 12.5 MG CAPSULE PO SCH (08:27)
[2022-09-22] MEDS: CHOLECALCIFEROL 1,000 UNIT TABLET PO SCH (08:27)
[2022-09-22] MEDS: REMEDY ESSENTIAL ZINC PASTE 113 GM TOP PRN (08:27)
[2022-09-22] MEDS: GUAIFENESIN LA 600 MG TABLET.SA PO SCH ×2 (08:28→20:32)
[2022-09-22] MEDS: LINAGLIPTIN 5 MG TABLET PO SCH (08:28)
[2022-09-22] MEDS: POTASSIUM CHLORIDE 10 MEQ TAB.PRT.SR PO SCH ×2 (08:28→16:33)
[2022-09-22] MEDS: ENOXAPARIN SODIUM 40 MG/0.4 ML DISP.SYRIN SQ SCH (08:29)
[2022-09-22] MEDS: FLUTICASONE/VILANTEROL 1 EACH BLST.W.DEV INH SCH (08:31)
[2022-09-22] MEDS: ARGININE/GLUTAMINE/CALCIUM BMB 1 EACH POWD.PACK PO SCH (08:33)
[2022-09-22] MEDS: NUTRISOURCE FIBER 4 GM PACKET PO SCH ×2 (08:34→17:08)
[2022-09-22] MEDS ORDERED: POTASSIUM CHLORIDE 20 MEQ POWDER PACKET PO ONE (10:00)
[2022-09-22] MEDS: CEFTRIAXONE 1 G in IV DEXTROSE 5% 50 ML IV SCH (12:33)
--- NOTE | 2022-09-22 14:09 | NUR ---
0715-Upon routine shift exchange rounds rec'd patient in bed asleep at this time. No respiratory distress noted. LT UA mid line flushing well with site intact. Patient able to wake up on verbal commands, no physical or respiratory distress noted; patient confused and disoriented, redirect as needed. Oral fluids offered as mouna. and taken well. Aspiration precautions observed, no s/s of chocking noted. Safety measures in place and call light at reach. 0900-Scheduled/due medication administered as ordered with no ASE noted, oral fluids taken well. 2:20PM-Patient seen by the with orders to DC home as of today; daughter is at bedside and aware of DC order. Addendum: 09/22/22 at 1418 by MARI LE RN Incorrect entry/Patient.
[2022-09-22 16:00] VITALS: BP 131/68
[2022-09-22] MEDS: DONEPEZIL 10 MG TABLET PO SCH (17:33)
[2022-09-22] MEDS: METFORMIN XR 500 MG TAB.SR.24H PO SCH (17:35)
--- NOTE | 2022-09-22 19:01 | NUR ---
Pt. going to be discharge to [facility]. Report given to Karishma. ALL PAPER WORK DONE. Endorsed to relieving nurse FOR PROPER f/u. Son Daneil at bed side and aware. Pt. is to be provided with warm blankets upon leaving facility due to cold weather and son concern and request.
[2022-09-22 19:59] VITALS: BP 132/80
[2022-09-22] MEDS: AMITRIPTYLINE HCL 10 MG TABLET PO SCH (20:32)
[2022-09-23 04:39] VITALS: BP 123/57
[2022-09-23] MEDS: PANTOPRAZOLE SODIUM 40 MG TABLET.DR PO SCH (06:16)
[2022-09-23] MEDS: LEVOTHYROXINE SODIUM 125 MCG TABLET PO SCH (06:16)
[2022-09-23 08:00] VITALS: BP 119/51
[2022-09-23] MEDS: POTASSIUM CHLORIDE 10 MEQ TAB.PRT.SR PO SCH ×2 (08:05→17:01)
[2022-09-23] MEDS: VALPROIC ACID 250 MG/5 ML LIQUID UDC PO SCH ×2 (08:05→20:21)
[2022-09-23] MEDS: OXYBUTYNIN CHLORIDE 5 MG TABLET PO SCH ×3 (08:05→17:01)
[2022-09-23] MEDS: CYANOCOBALAMIN 1,000 MCG TABLET PO SCH (08:05)
[2022-09-23] MEDS: CHOLECALCIFEROL 1,000 UNIT TABLET PO SCH (08:05)
[2022-09-23] MEDS: HYDROCHLOROTHIAZIDE 12.5 MG CAPSULE PO SCH (08:05)
[2022-09-23] MEDS: GUAIFENESIN LA 600 MG TABLET.SA PO SCH ×2 (08:05→20:21)
[2022-09-23] MEDS: CLOPIDOGREL 75 MG TABLET PO SCH (08:05)
[2022-09-23] MEDS: LINAGLIPTIN 5 MG TABLET PO SCH (08:06)
[2022-09-23] MEDS: PROTEIN SUPPLEMENT (PROSTAT) 30 ML LIQUID PO SCH (08:06)
[2022-09-23] MEDS: GLUCERNA SHAKE 237 ML CAN PO SCH ×2 (08:07→17:02)
[2022-09-23] MEDS: FLUTICASONE/VILANTEROL 1 EACH BLST.W.DEV INH SCH (08:07)
[2022-09-23] MEDS: ARGININE/GLUTAMINE/CALCIUM BMB 1 EACH POWD.PACK PO SCH (08:07)
[2022-09-23] MEDS: MEMANTINE HCL 10 MG TABLET PO SCH ×2 (08:08→20:21)
[2022-09-23] MEDS: NUTRISOURCE FIBER 4 GM PACKET PO SCH ×2 (08:09→17:02)
[2022-09-23] MEDS: ENOXAPARIN SODIUM 40 MG/0.4 ML DISP.SYRIN SQ SCH (08:10)
--- NOTE | 2022-09-23 11:49 | NUR ---
WOUND CARE CONSULT: PT PRESENTS WITH STAINING OF SKIN TO PERINEUM AND BUTTOCKS FROM PREVIOUS FUNGAL RASH (TREATED AND RESOLVED) WELL BLANCHABLE REDNESS TO HEELS WITH SLIGHT DUSKY COLOR, NO TENDERNESS. PT IS INCONTINENT. RECOMMENDATIONS MADE FOR SKIN PROTECTION. DISCUSSED WITH NURSING STAFF. SKIN TO BE KEPT CLEAN AND DRY. WILL SEE PRShola NICOLAS IN AGREEMENT WITH PLAN OF CARE.
[2022-09-23] MEDS: CEFTRIAXONE 1 G in IV DEXTROSE 5% 50 ML IV SCH (12:09)
[2022-09-23 15:56] VITALS: BP 123/46
[2022-09-23] MEDS: DONEPEZIL 10 MG TABLET PO SCH (17:01)
[2022-09-23] MEDS: METFORMIN XR 500 MG TAB.SR.24H PO SCH (17:01)
--- NOTE | 2022-09-23 18:34 | NUR ---
no events noted during shift, patient tolerated PT, OT well.
[2022-09-23 20:00] VITALS: BP 127/61
[2022-09-23] MEDS: AMITRIPTYLINE HCL 10 MG TABLET PO SCH (20:21)
[2022-09-24 04:00] VITALS: BP 131/61
[2022-09-24] MEDS: LEVOTHYROXINE SODIUM 125 MCG TABLET PO SCH (06:25)
[2022-09-24] MEDS: PANTOPRAZOLE SODIUM 40 MG TABLET.DR PO SCH (06:25)
[2022-09-24 08:00] VITALS: BP 119/76
[2022-09-24] MEDS: CHOLECALCIFEROL 1,000 UNIT TABLET PO SCH (08:36)
[2022-09-24] MEDS: PROTEIN SUPPLEMENT (PROSTAT) 30 ML LIQUID PO SCH (08:36)
[2022-09-24] MEDS: VALPROIC ACID 250 MG/5 ML LIQUID UDC PO SCH (08:36)
[2022-09-24] MEDS: HYDROCHLOROTHIAZIDE 12.5 MG CAPSULE PO SCH (08:37)
[2022-09-24] MEDS: CYANOCOBALAMIN 1,000 MCG TABLET PO SCH (08:37)
[2022-09-24] MEDS: OXYBUTYNIN CHLORIDE 5 MG TABLET PO SCH ×3 (08:37→16:32)
[2022-09-24] MEDS: CLOPIDOGREL 75 MG TABLET PO SCH (08:37)
[2022-09-24] MEDS: POTASSIUM CHLORIDE 10 MEQ TAB.PRT.SR PO SCH ×2 (08:37→16:38)
[2022-09-24] MEDS: GUAIFENESIN LA 600 MG TABLET.SA PO SCH (08:37)
[2022-09-24] MEDS: LINAGLIPTIN 5 MG TABLET PO SCH (08:37)
[2022-09-24] MEDS: MEMANTINE HCL 10 MG TABLET PO SCH (08:37)
[2022-09-24] MEDS: ENOXAPARIN SODIUM 40 MG/0.4 ML DISP.SYRIN SQ SCH (08:38)
[2022-09-24] MEDS: GLUCERNA SHAKE 237 ML CAN PO SCH (08:45)
[2022-09-24] MEDS: ARGININE/GLUTAMINE/CALCIUM BMB 1 EACH POWD.PACK PO SCH (08:47)
[2022-09-24] MEDS: REMEDY ESSENTIAL ZINC PASTE 113 GM TOP PRN (08:50)
[2022-09-24] MEDS: FLUTICASONE/VILANTEROL 1 EACH BLST.W.DEV INH SCH (08:50)
[2022-09-24] MEDS: NUTRISOURCE FIBER 4 GM PACKET PO SCH (08:51)
[2022-09-24] MEDS: CEFTRIAXONE 1 G in IV DEXTROSE 5% 50 ML IV SCH (12:59)
--- NOTE | 2022-09-24 16:39 | NUR ---
0730-Patient rec'd in bed, awake, no apparent respiratory distress, on R/A, watching TV at this time, patient denies pain. Offered oral fluids and taken well. Safety measures and call light at reach. 0900-Scheduled/due medication administered as ordered with no ASE noted. 1400-IV ATB dose administered administered as ordered with no ASE noted., 1500-ML to HAYDEN dc'd as ordered by MD. Applied direct pressure to puncture site and a band-aid, no bleeding noted. Patient mouna. well procedure with no C/O pain or discomfort. 1640-Patient was discharged home safely, was taken via private-driven by daughter, Melody Osei and accompanied by , Shannon Han. Medication profile, education provided with good verbal demonstration returned from both said parties. All paper work/belongings taken, diaper was wet and changed at about 1625.
== END 2022-09-24 15:45 | disposition home or self-care (01) | DRG 871 ==
PROVIDERS: ADMIT Physical Medicine & Rehabilitation Pain Medicine; ATTEND Physical Medicine & Rehabilitation Pain Medicine
DX: A41.9 Sepsis, unspecified organism (principal); E43 Unspecified severe protein-calorie malnutrition; N17.0 Acute kidney failure with tubular necrosis; G93.41 Metabolic encephalopathy; N39.0 Urinary tract infection, site not specified; I69.354 Hemiplegia and hemiparesis following cerebral infarction affecting left non-dominant side; D68.59 Other primary thrombophilia; F01.53 Vascular dementia, unspecified severity, with mood disturbance; J44.1 Chronic obstructive pulmonary disease with (acute) exacerbation; F03.90 Unspecified dementia, unspecified severity, without behavioral disturbance, psychotic disturbance, mood disturbance, and anxiety; E03.9 Hypothyroidism, unspecified; E11.9 Type 2 diabetes mellitus without complications; I69.322 Dysarthria following cerebral infarction; I69.392 Facial weakness following cerebral infarction; E11.22 Type 2 diabetes mellitus with diabetic chronic kidney disease; E11.65 Type 2 diabetes mellitus with hyperglycemia; E78.5 Hyperlipidemia, unspecified; G89.29 Other chronic pain; H54.7 Unspecified visual loss; I12.9 Hypertensive chronic kidney disease with stage 1 through stage 4 chronic kidney disease, or unspecified chronic kidney disease; N18.9 Chronic kidney disease, unspecified; J20.9 Acute bronchitis, unspecified; E87.6 Hypokalemia; M19.90 Unspecified osteoarthritis, unspecified site; Z68.31 Body mass index [BMI] 31.0-31.9, adult; Z79.4 Long term (current) use of insulin; Z87.440 Personal history of urinary (tract) infections; Z87.891 Personal history of nicotine dependence; I69.398 Other sequelae of cerebral infarction; R19.7 Diarrhea, unspecified; M25.551 Pain in right hip
CPT/HCPCS: 36415; 71045; 83735; 84100; 85025; 97535-GO-CO; A6209; C1758; J0696; J1650

== ENCOUNTER 2022-12-12 20:02 | Inpatient (IN) | payer MEDICARE, BC ==
[~2022-12-12] VITALS: Ht 165.1 cm; Wt 81.6 kg
[~2022-12-12 20:02] MED LIST changes: -ACET-2154 PO; -CHOL400C8; +CHOL400C8 PO; +CRAN450T9 PO; -CYAN100T44 PO; -DOCU-141 PO; +DOXA2TAB PO; -ENOX40DI SQ; +LEVO250T59 PO; -MEMA10TA PO; +MEMA28CA PO; +METH1TAB69 PO; -MV-M1TAB18 PO; -NUT.237L28 PO; +NUT.237L36 PO; -PETR113P TP; -QUET25TA36 PO; -ROSU20TA2 PO
[2022-12-12] MEDS ORDERED: AZITHROMYCIN IV 500 MG in IV DEXTROSE 5% 250 ML IV ONE (20:15)
[2022-12-12] MEDS ORDERED: CEFTRIAXONE 1 G in IV DEXTROSE 5% 50 ML IV ONE (20:15)
[2022-12-12] MEDS ORDERED: IV NORMAL SALINE 500 ML IV ONE (20:15)
[2022-12-12] MEDS ORDERED: MAGNESIUM SULFATE/D5W 100 ML IV SCH ×2 (20:30→21:45)
[2022-12-12] MEDS ORDERED: POTA10CA43 PO (20:46)
[2022-12-12] MEDS ORDERED: CRAN425C6 PO (20:46)
[2022-12-12] MEDS ORDERED: ROSU20TA2 PO (20:46)
[2022-12-12] MEDS ORDERED: CEPH500C2 PO (20:46)
[2022-12-12] MEDS ORDERED: HYDR12.517 PO (20:46)
[2022-12-12] MEDS ORDERED: CYAN100T44 PO (20:46)
[2022-12-12] MEDS ORDERED: CEFTRIAXONE /D5W 50ML IVPB **ER PYXIS IV ONE (21:04)
[2022-12-12] MEDS ORDERED: AZITHROMYCIN 500MG/ D5W 250ML IVPB **ER PYXIS ONLY IV ONE (21:05)
[2022-12-12] MEDS ORDERED: MAGNESIUM SULFATE/D5W 100 ML ONE (21:05)
[2022-12-12 21:14] LABS: MEAN CORPUSCULAR HEMOGLOBIN 29.3 uug (24.7-32.8); MEAN CORPUSCULAR VOLUME 88.6 fL (75.5-95.3); PLATELET COUNT (AUTO) 492 K/uL (179-408)
[2022-12-12 21:25] LABS: CARBON DIOXIDE 26 mmol/L (21-32); CHLORIDE 89 mmol/L (98-107); CREATININE 1.4 mg/dL (0.6-1.3); GLUCOSE 224 mg/dL (74-106); UREA NITROGEN, BLOOD 25 mg/dL (7-18)
[2022-12-12 21:27] LABS: POTASSIUM 2.8 mmol/L (3.5-5.1)
[2022-12-12 21:43] LABS: ALANINE AMINOTRANSFERASE 16 U/L (14-59); ALKALINE PHOSPHATASE 102 U/L (50-136); ASPARTATE AMINOTRANSFERASE 34 U/L (15-37); BILIRUBIN,TOTAL 0.9 mg/dL (0.2-1.0); CREATINE KINASE, TOTAL 723 U/L (26-192); LACTATE DEHYDROGENASE 178 U/L (81-234); TOTAL PROTEIN, SERUM 8.9 g/dL (6.4-8.2)
[2022-12-12] MEDS ORDERED: POTASSIUM CHLORIDE 20 MEQ TAB.PRT.SR PO ONE (21:45)
[2022-12-12] MEDS ORDERED: MAGNESIUM HYDROXIDE 30 ML LIQUID UDC PO PRN (22:00)
[2022-12-12] MEDS ORDERED: DEXTROSE 50% 50 ML DISP.SYRIN IV PRN (22:00)
[2022-12-12] MEDS ORDERED: REMEDY ESSENTIAL ZINC PASTE 113 GM TP PRN (22:00)
[2022-12-12] MEDS ORDERED: ONDANSETRON 4 MG/2 ML VIAL IV PRN (22:00)
[2022-12-12] MEDS ORDERED: IV NS 1000 ML 1,000 ML IV ONE (22:00)
[2022-12-12] MEDS ORDERED: DEXAMETHASONE SOD PHOSPHATE 10 MG INJ ONE (22:21)
[2022-12-13] MEDS ORDERED: POTASSIUM CHLORIDE 150 ML ONE (01:45)
[2022-12-13] MEDS ORDERED: POTASSIUM CHLORIDE 20 MEQ TAB.PRT.SR ONE (01:46)
[2022-12-13] MEDS ORDERED: DEXAMETHASONE SOD PHOSPHATE 4 MG INJ IV ONE ×2 (01:58→03:38)
[2022-12-13] MEDS: POTASSIUM CHLORIDE 50 ML IV SCH ×3 (02:00→06:45)
[2022-12-13] MEDS ORDERED: HEPARIN SODIUM,PORCINE 5,000 UNITS/ML VIAL SQ ONE ×2 (02:05→03:37)
[2022-12-13 02:10] VITALS: BP 107/58
[2022-12-13 04:00] VITALS: BP 111/59
[2022-12-13] MEDS: BLOOD SUGAR DIAGNOSTIC 1 EACH STRIP VI SCH ×4 (06:46→21:00)
[2022-12-13 07:20] LABS: HEMATOCRIT 31.5 % (31.2-41.9); MEAN CORPUSCULAR HEMOGLOBIN 29.6 uug (24.7-32.8); MEAN CORPUSCULAR VOLUME 86.9 fL (75.5-95.3); PLATELET COUNT (AUTO) 399 K/uL (179-408)
[2022-12-13 08:00] VITALS: BP 120/60
[2022-12-13 08:09] LABS: CREATININE 1.1 mg/dL (0.6-1.3); MAGNESIUM 2.5 mg/dL (1.8-2.4); PHOSPHOROUS 3.2 mg/dL (2.5-4.9)
[2022-12-13] MEDS ORDERED: HEPARIN SODIUM,PORCINE 5,000 UNITS/ML VIAL SQ SCH (09:00)
[2022-12-13] MEDS: POTASSIUM CHLORIDE 20 MEQ TAB.PRT.SR PO SCH ×2 (10:54→12:30)
[2022-12-13] MEDS: DEXAMETHASONE SOD PHOSPHATE 10 MG INJ IV SCH (10:54)
[2022-12-13] MEDS: APIXABAN 5 MG TABLET PO SCH ×2 (10:59→21:00)
[2022-12-13] MEDS: INSULIN REGULAR, HUMAN 300 UNIT/3 ML VIAL SQ PRN ×3 (11:03→18:58)
[2022-12-13] MEDS: CEFTRIAXONE 1 G in IV DEXTROSE 5% 50 ML IV SCH (22:38)
[2022-12-13] MEDS: AZITHROMYCIN IV 500 MG in IV DEXTROSE 5% 250 ML IV SCH (22:39)
[2022-12-13] MEDS: ACETAMINOPHEN 325 MG TABLET PO PRN (22:44)
[2022-12-14 00:01] LABS: ABG BASE EXCESS -0.5 mmol/L; ABG HCO3 21.9 mmol/L; ABG PCO2 29.4 mmHg (35.0-45.0); ABG PO2 64.7 mmHg (75.0-100.0); ABG SITE LEFT RADIAL; ABG TOTAL HEMOGLOBIN 12.7 G/dL (12.0-16.0); COHb 0.6 % (0.5-1.5); O2Hb 92.6 % (94.0-97.0); VENT MODE room air
[2022-12-14] MEDS: INSULIN REGULAR, HUMAN 300 UNIT/3 ML VIAL SQ PRN ×4 (02:18→20:52)
[2022-12-14] MEDS: IV NS 1000 ML 1,000 ML IV PRN ×2 (02:42→17:45)
[2022-12-14 03:35] VITALS: BP 91/52
[2022-12-14 07:19] LABS: HEMATOCRIT 31.3 % (31.2-41.9); MEAN CORPUSCULAR HEMOGLOBIN 29.2 uug (24.7-32.8); MEAN CORPUSCULAR VOLUME 87.8 fL (75.5-95.3); PLATELET COUNT (AUTO) 409 K/uL (179-408)
[2022-12-14] MEDS: BLOOD SUGAR DIAGNOSTIC 1 EACH STRIP VI SCH ×4 (07:36→21:00)
[2022-12-14 07:46] LABS: CREATININE 1.1 mg/dL (0.6-1.3); MAGNESIUM 2.4 mg/dL (1.8-2.4); PHOSPHOROUS 3.5 mg/dL (2.5-4.9); POTASSIUM 3.9 mmol/L (3.5-5.1)
[2022-12-14 08:00] VITALS: BP 112/62
[2022-12-14] MEDS: DEXAMETHASONE SOD PHOSPHATE 10 MG INJ IV SCH (09:00)
[2022-12-14] MEDS: APIXABAN 5 MG TABLET PO SCH ×2 (10:30→20:50)
[2022-12-14 11:25] VITALS: BP 111/48
[2022-12-14] MEDS ORDERED: LEVO150T8 PO (13:07)
[2022-12-14] MEDS ORDERED: DOXA2TAB2 PO (13:08)
[2022-12-14 16:33] VITALS: BP 107/51
[2022-12-14 20:05] VITALS: BP 106/54
[2022-12-14] MEDS: CEFTRIAXONE 1 G in IV DEXTROSE 5% 50 ML IV SCH (21:21)
[2022-12-14] MEDS: AZITHROMYCIN IV 500 MG in IV DEXTROSE 5% 250 ML IV SCH (22:14)
[2022-12-15 00:07] VITALS: BP 105/50
[2022-12-15] MEDS: ACETAMINOPHEN 325 MG TABLET PO PRN (03:24)
[2022-12-15 04:10] VITALS: BP 109/59
[2022-12-15] MEDS: BLOOD SUGAR DIAGNOSTIC 1 EACH STRIP VI SCH ×3 (06:41→16:30)
[2022-12-15 08:22] VITALS: BP 117/51
[2022-12-15] MEDS: IV NS 1000 ML 1,000 ML IV PRN (08:25)
[2022-12-15] MEDS: DEXAMETHASONE SOD PHOSPHATE 10 MG INJ IV SCH (08:28)
[2022-12-15] MEDS: INSULIN REGULAR, HUMAN 300 UNIT/3 ML VIAL SQ PRN ×3 (08:30→17:47)
[2022-12-15] MEDS: APIXABAN 5 MG TABLET PO SCH (08:31)
[2022-12-15] MEDS ORDERED: AZIT250T13 PO (10:13)
[2022-12-15] MEDS ORDERED: DEXA4TAB PO (10:13)
[2022-12-15 11:38] VITALS: BP 121/57
[2022-12-15] MEDS ORDERED: IOHEXOL 300MG/ML 100 ML INFUS..BTL ONE (13:12)
[2022-12-15] MEDS ORDERED: IV NORMAL SALINE 250 ML IV ONE (13:13)
[2022-12-15] MEDS ORDERED: SWABABLE VALVE TRANSFER SET EA MC ONE (13:13)
[2022-12-15 16:38] VITALS: BP 105/46
== END 2022-12-15 19:27 | DRG 871 ==
LOC: ER 20:07 → TELE3 12-13 01:20 → MEDSURG3 12-15 10:00
PROVIDERS: ADMIT Nurse Practitioner Acute Care; ATTEND Nurse Practitioner Acute Care
PROC: 05H933Z Insertion of Infusion Device into Right Brachial Vein, Percutaneous Approach (ICD-10-PCS; principal; 2022-12-13)
DX: A41.89 Other specified sepsis (principal); G93.41 Metabolic encephalopathy; U07.1 COVID-19; J12.82 Pneumonia due to coronavirus disease 2019; N17.0 Acute kidney failure with tubular necrosis; N39.0 Urinary tract infection, site not specified; D68.59 Other primary thrombophilia; E44.0 Moderate protein-calorie malnutrition; E87.1 Hypo-osmolality and hyponatremia; I69.354 Hemiplegia and hemiparesis following cerebral infarction affecting left non-dominant side; M62.82 Rhabdomyolysis; E86.1 Hypovolemia; E87.6 Hypokalemia; E03.9 Hypothyroidism, unspecified; E78.5 Hyperlipidemia, unspecified; F03.90 Unspecified dementia, unspecified severity, without behavioral disturbance, psychotic disturbance, mood disturbance, and anxiety; Z90.49 Acquired absence of other specified parts of digestive tract; Z79.84 Long term (current) use of oral hypoglycemic drugs; Z79.02 Long term (current) use of antithrombotics/antiplatelets; Z79.890 Hormone replacement therapy; I48.91 Unspecified atrial fibrillation; Z79.899 Other long term (current) drug therapy; Z90.710 Acquired absence of both cervix and uterus; R79.82 Elevated C-reactive protein (CRP); E11.9 Type 2 diabetes mellitus without complications; E86.0 Dehydration
CPT/HCPCS: 36415; 36600; 71045; 71275; 83605; 83615; 83735; 84100; 84443; 84484; 85025; 85730; 86140; 87040; 93005; A4663; A6209; A6213; G0378; J0456; J0696; J1100; J1815; J3475; J3480; J7040; J7050; Q9967

== ENCOUNTER 2022-12-15 19:28 | Inpatient (IN) | payer MEDICARE, BC ==
[~2022-12-15] VITALS: Ht 165.1 cm; Wt 81.6 kg
[~2022-12-15 19:28] MED LIST changes: +AZIT250T13 PO; +CEPH500C2 PO; +CRAN425C6 PO; -CRAN450T9 PO; +CYAN100T44 PO; +DEXA4TAB PO; -DOXA2TAB PO; +DOXA2TAB2 PO; +HYDR12.517 PO; -HYDR12.55 PO; -LEVO125T PO; +LEVO150T8 PO; -LEVO250T59 PO; -METH1TAB69 PO; -NUT.237L36 PO; +ROSU20TA2 PO
--- NOTE | 2022-12-15 20:00 | NUR ---
PATIENT ADMITTED TO ARU. ADMISSION PENDING. RN ENDORSES CARE TO LUIS MANUEL RICHARDSON, NOC SHIFT, FOR CONTINUATION OF CARE.
[2022-12-15 20:45] VITALS: BP 104/72
--- NOTE | 2022-12-16 04:17 | NUR ---
Admitted to ARU, Dx: Acute metabolic encephalopathy. Dr Perry and Padmini Rea MEASUREMENT AND VERIFICATION ENGINEER informed of admission. Alert to self, confused, able to follow simple directions. Rt wrist IV access intact and patent. Assessed skin, Rt hip skin tear and sacral DTI noted. Needs assessed and attended to.
[2022-12-16 04:30] VITALS: BP 124/59
[2022-12-16 07:40] VITALS: BP 138/52
--- NOTE | 2022-12-16 10:54 | NUR ---
WOUND CARE CONSULT: PT WORKING WITH P.T. AT THIS TIME. PT SEEN PREVIOUSLY FOR RT HIP WOUND, SACRAL INTACT DEEP TISSUE INJURY, PRESENT ON ADMISSION. PT SEEN AT THIS TIME FOR RT EAR DRY SCAB, PRESENT ON ADMISSION. PT AND FAMILY REQUESTING ANTIBIOTIC OINTMENT FOR EAR AND THEY STATE THAT SCAB HAS BEEN THERE PRIOR TO ADMISSION. DISCUSSED SKIN PROTECTION AND WOUND RECOMMENDATIONS WITH NURSING STAFF. MD IN AGREEMENT WITH PLAN OF CARE.
[2022-12-16] MEDS: DEXAMETHASONE 4 MG TABLET PO SCH (13:50)
[2022-12-16] MEDS: CIPROFLOXACIN HCL 250 MG TABLET PO SCH ×2 (13:51→21:11)
[2022-12-16] MEDS: NEOMY/BACITRAC/POLYMI OINT 28.35 GM TUBE TOP SCH (13:51)
[2022-12-16 16:00] VITALS: BP 142/65
[2022-12-16] MEDS: VALPROIC ACID 250 MG/5 ML LIQUID UDC PO SCH (17:05)
[2022-12-16] MEDS: MEMANTINE HCL 10 MG TABLET PO SCH (17:06)
[2022-12-16] MEDS: POTASSIUM CHLORIDE 10 MEQ TAB.PRT.SR PO SCH (17:06)
--- NOTE | 2022-12-16 18:44 | NUR ---
patient is to her baseline, no sob, respiration are even nonlabored, skin warm and dry to touch, kept clean and dry, tolerated PT, OT services, no acute distress noted.
[2022-12-16 20:22] VITALS: BP 127/54
[2022-12-16] MEDS: THERAHONEY GEL 1.5 OZ TUBE TOP SCH (20:30)
[2022-12-16] MEDS: DOXAZOSIN 2 MG TABLET PO SCH (21:10)
[2022-12-16] MEDS: DONEPEZIL 10 MG TABLET PO SCH (21:11)
[2022-12-16] MEDS: AMITRIPTYLINE HCL 10 MG TABLET PO SCH (21:11)
[2022-12-17 04:20] VITALS: BP 125/56
[2022-12-17] MEDS: LEVOTHYROXINE SODIUM 150 MCG TABLET PO SCH (06:29)
[2022-12-17] MEDS: PANTOPRAZOLE SODIUM 40 MG TABLET.DR PO SCH (06:29)
--- NOTE | 2022-12-17 06:51 | NUR ---
Slept intermittently, no acute distress noted. Denies any pain/discomfort. Needs assessed and attended to.
[2022-12-17] MEDS ORDERED: SILVER NITRATE APPLICATOR STICK EACH TP PRN (07:30)
[2022-12-17] MEDS ORDERED: LIDOCAINE 2%-EPI 1:100,000 20 ML VIAL IJ PRN ×2 (07:30→09:45)
[2022-12-17] MEDS ORDERED: LIDOCAINE 2%-EPI 1:100,000 20 ML VIAL IJ ONE (08:00)
[2022-12-17] MEDS ORDERED: SILVER NITRATE APPLICATOR STICK EACH TP ONE (08:00)
[2022-12-17] MEDS: POTASSIUM CHLORIDE 10 MEQ TAB.PRT.SR PO SCH ×2 (08:55→16:32)
[2022-12-17] MEDS: VALPROIC ACID 250 MG/5 ML LIQUID UDC PO SCH ×2 (08:55→16:32)
[2022-12-17] MEDS: CHOLECALCIFEROL 1,000 UNIT TABLET PO SCH (08:56)
[2022-12-17] MEDS: CIPROFLOXACIN HCL 250 MG TABLET PO SCH ×2 (08:56→20:52)
[2022-12-17] MEDS: MEMANTINE HCL 10 MG TABLET PO SCH ×2 (08:56→16:32)
[2022-12-17] MEDS: CLOPIDOGREL 75 MG TABLET PO SCH (08:56)
[2022-12-17] MEDS: DEXAMETHASONE 4 MG TABLET PO SCH (08:56)
[2022-12-17] MEDS: LINAGLIPTIN 5 MG TABLET PO SCH (08:56)
[2022-12-17] MEDS: METFORMIN XR 500 MG TAB.SR.24H PO SCH (08:57)
[2022-12-17] MEDS: THERAHONEY GEL 1.5 OZ TUBE TOP SCH (08:57)
[2022-12-17] MEDS: CYANOCOBALAMIN 100 MCG TABLET PO SCH (08:57)
[2022-12-17] MEDS: NEOMY/BACITRAC/POLYMI OINT 28.35 GM TUBE TOP SCH (08:58)
[2022-12-17 09:00] VITALS: BP 115/85
[2022-12-17] MEDS: ACETAMINOPHEN 325 MG TABLET PO PRN (10:21)
--- NOTE | 2022-12-17 14:45 | NUR ---
INTERDISCIPLINARY TEAM CONFERENCE
[2022-12-17 16:00] VITALS: BP 113/53
[2022-12-17] MEDS: GLUCERNA SHAKE 237 ML CAN PO SCH (16:57)
[2022-12-17 20:05] VITALS: BP 126/64
[2022-12-17] MEDS: DOXAZOSIN 2 MG TABLET PO SCH (20:52)
[2022-12-17] MEDS: DONEPEZIL 10 MG TABLET PO SCH (20:52)
[2022-12-17] MEDS: AMITRIPTYLINE HCL 10 MG TABLET PO SCH (20:52)
[2022-12-18 06:26] VITALS: BP 133/44
[2022-12-18] MEDS: PANTOPRAZOLE SODIUM 40 MG TABLET.DR PO SCH (06:35)
[2022-12-18] MEDS: LEVOTHYROXINE SODIUM 150 MCG TABLET PO SCH (06:35)
[2022-12-18 08:00] VITALS: BP 130/62
[2022-12-18] MEDS: GLUCERNA SHAKE 237 ML CAN PO SCH ×2 (08:19→17:19)
[2022-12-18] MEDS: PROTEIN SUPPLEMENT (PROSTAT) 30 ML LIQUID PO SCH (08:19)
[2022-12-18] MEDS: CIPROFLOXACIN HCL 250 MG TABLET PO SCH ×2 (08:42→20:36)
[2022-12-18] MEDS: METFORMIN XR 500 MG TAB.SR.24H PO SCH (08:43)
[2022-12-18] MEDS: VALPROIC ACID 250 MG/5 ML LIQUID UDC PO SCH ×2 (08:43→17:18)
[2022-12-18] MEDS: DEXAMETHASONE 4 MG TABLET PO SCH (08:43)
[2022-12-18] MEDS: CYANOCOBALAMIN 100 MCG TABLET PO SCH (08:44)
[2022-12-18] MEDS: POTASSIUM CHLORIDE 10 MEQ TAB.PRT.SR PO SCH ×2 (08:44→17:18)
[2022-12-18] MEDS: MEMANTINE HCL 10 MG TABLET PO SCH ×2 (08:44→17:18)
[2022-12-18] MEDS: CHOLECALCIFEROL 1,000 UNIT TABLET PO SCH (08:44)
[2022-12-18] MEDS: LINAGLIPTIN 5 MG TABLET PO SCH (08:44)
[2022-12-18] MEDS: CLOPIDOGREL 75 MG TABLET PO SCH (08:44)
[2022-12-18] MEDS: THERAHONEY GEL 1.5 OZ TUBE TOP SCH (08:45)
[2022-12-18] MEDS: NEOMY/BACITRAC/POLYMI OINT 28.35 GM TUBE TOP SCH (08:45)
[2022-12-18 12:00] VITALS: BP 118/70
--- NOTE | 2022-12-18 14:54 | NUR ---
INTERDISCIPLINARY TEAM CONFERENCE
--- NOTE | 2022-12-18 14:55 | NUR ---
INDIVIDUALIZED PLAN OF CARE
[2022-12-18] MEDS ORDERED: SWABABLE VALVE TRANSFER SET EA MC ONE (15:02)
[2022-12-18] MEDS ORDERED: IOHEXOL 300MG/ML 100 ML INFUS..BTL ONE (15:02)
[2022-12-18] MEDS ORDERED: IV NORMAL SALINE 250 ML IV ONE (15:03)
[2022-12-18 16:00] VITALS: BP 122/61
[2022-12-18] MEDS ORDERED: DEXTROSE 50% 50 ML DISP.SYRIN IV PRN (18:30)
[2022-12-18 20:00] VITALS: BP 110/50
[2022-12-18] MEDS: AMITRIPTYLINE HCL 10 MG TABLET PO SCH (20:36)
[2022-12-18] MEDS: DOXAZOSIN 2 MG TABLET PO SCH (20:37)
[2022-12-18] MEDS: DONEPEZIL 10 MG TABLET PO SCH (20:37)
[2022-12-18] MEDS: BLOOD SUGAR DIAGNOSTIC 1 EACH STRIP VI SCH (21:27)
[2022-12-18] MEDS: INSULIN REGULAR, HUMAN 300 UNIT/3 ML VIAL SQ PRN (21:30)
--- NOTE | 2022-12-18 23:00 | NUR ---
Assumed care of patient from LUIS MANUEL Walters. Received patient lying in bed. AAOx1 only. Mainly confused and disoriented. In no acute distress. No signs or symptoms of pain or SOB. IV site on right FA intact and patent. Straight catheterization done per order to obtain urine and sent to lab. Continue to monitor.
[2022-12-18 23:29] LABS: *BILIRUBIN,URIN NEGATIVE (NEGATIVE); *BLOOD, URINE NEGATIVE (NEGATIVE); *COLOR,URINE YELLOW (YELLOW); *KETONES,URINE NEGATIVE (NEGATIVE); *UROBILINOGEN,URINE 0.2 E.U./dl (NORMAL); LEUKOCYTE ESTERASE ,URINE 2+ (NEGATIVE); NITRITE, URINE NEGATIVE (NEGATIVE)
[2022-12-18 23:30] LABS: UGLUCOSE 2+ (NEGATIVE)
[2022-12-18 23:31] LABS: *CLARITY,URINE CLOUDY (CLEAR)
[2022-12-19 00:29] LABS: BACTERIA,URINE MODERATE /HPF (NONE SEEN); SQUAMOUS EPITHELIAL CELL,UR FEW /HPF (NONE SEEN); WBC,URINE 20-50 /HPF (0-3)
[2022-12-19 04:00] VITALS: BP 130/69
--- NOTE | 2022-12-19 05:32 | NUR ---
In no acute distress. No signs or symptoms of pain or SOB. Needs assessed and attended to. Incontinent care provided. Safety measure maintained.
[2022-12-19] MEDS: PANTOPRAZOLE SODIUM 40 MG TABLET.DR PO SCH (06:14)
[2022-12-19] MEDS: LEVOTHYROXINE SODIUM 150 MCG TABLET PO SCH (06:14)
[2022-12-19] MEDS: BLOOD SUGAR DIAGNOSTIC 1 EACH STRIP VI SCH ×4 (06:34→20:51)
[2022-12-19 07:09] LABS: HEMATOCRIT 34.7 % (31.2-41.9); MEAN CORPUSCULAR HEMOGLOBIN 29.5 uug (24.7-32.8); MEAN CORPUSCULAR VOLUME 87.2 fL (75.5-95.3); PLATELET COUNT (AUTO) 551 K/uL (179-408)
[2022-12-19 07:41] LABS: BILIRUBIN,TOTAL 0.7 mg/dL (0.2-1.0); MAGNESIUM 2.1 mg/dL (1.8-2.4); PHOSPHOROUS 2.8 mg/dL (2.5-4.9); POTASSIUM 3.4 mmol/L (3.5-5.1); TOTAL PROTEIN, SERUM 6.8 g/dL (6.4-8.2)
[2022-12-19] MEDS: INSULIN REGULAR, HUMAN 300 UNIT/3 ML VIAL SQ PRN ×4 (07:44→20:54)
--- NOTE | 2022-12-19 07:58 | NUR ---
0730-REC'D PATIENT IN BED, AWAKE, ALERT AND ORIENTED TO HERSELF, CONFUSED/FORGETFUL. REALITY ORIENTATION PROVIDED NEEDED. PATIENT MOVING AROUND IN BED, SAFETY PRECAUTION REMINDERS PROVIDED. PATIENT CONTINUES ON IV ATB THERAPY FOR UTI, NO ASE NOTED. ORAL FLUIDS ENCOURAGED, PATIENT DENIES PAIN OR BLADDER DISCOMFORT. WILL CONTINUE TO MONITOR, CALL LIGHT AT REACH.
[2022-12-19 08:00] VITALS: BP 134/75
[2022-12-19] MEDS: PROTEIN SUPPLEMENT (PROSTAT) 30 ML LIQUID PO SCH (08:09)
[2022-12-19] MEDS: GLUCERNA SHAKE 237 ML CAN PO SCH ×2 (08:09→16:38)
[2022-12-19] MEDS: MEMANTINE HCL 10 MG TABLET PO SCH ×2 (08:45→16:38)
[2022-12-19] MEDS: DEXAMETHASONE 4 MG TABLET PO SCH (08:45)
[2022-12-19] MEDS: CHOLECALCIFEROL 1,000 UNIT TABLET PO SCH (08:45)
[2022-12-19] MEDS: LINAGLIPTIN 5 MG TABLET PO SCH (08:45)
[2022-12-19] MEDS: POTASSIUM CHLORIDE 10 MEQ TAB.PRT.SR PO SCH ×2 (08:46→16:38)
[2022-12-19] MEDS: CLOPIDOGREL 75 MG TABLET PO SCH (08:46)
[2022-12-19] MEDS: VALPROIC ACID 250 MG/5 ML LIQUID UDC PO SCH ×2 (08:46→16:38)
[2022-12-19] MEDS: METFORMIN XR 500 MG TAB.SR.24H PO SCH (08:47)
[2022-12-19] MEDS: CIPROFLOXACIN HCL 250 MG TABLET PO SCH ×2 (08:47→20:44)
[2022-12-19] MEDS: MYRBETRIQ 50MG TABLET PO SCH (08:47)
[2022-12-19] MEDS: CYANOCOBALAMIN 100 MCG TABLET PO SCH (08:48)
[2022-12-19] MEDS: NEOMY/BACITRAC/POLYMI OINT 28.35 GM TUBE TOP SCH (09:06)
[2022-12-19] MEDS: THERAHONEY GEL 1.5 OZ TUBE TOP SCH (09:06)
[2022-12-19] MEDS ORDERED: POTASSIUM CHLORIDE 20 MEQ TAB.PRT.SR PO ONE (12:00)
[2022-12-19 16:00] VITALS: BP 120/59
--- NOTE | 2022-12-19 17:57 | NUR ---
Patient in usual conditions, family visited her during shift, /DTR (other sibling), Patient stable during shift, no changes noted; care provided at routine intervals and as needed; repositioned Q2HRS to promote comfort and to facilitate pressure relief. Patient on FS for BS checks AC/HS with SS insulin as ordered by MD. No s/s of hypo/hyperglycemia noted; although BS readings were elevated patient denies blurred vision, increased thirst, SS coverage administered as ordered.,Noted family brought food from outside (milkshake) Encouraged patient to drink clear plain water and compliant. Extensive assist provided with ADLS. Treatment provided to wound skin issues in different areas of the body.
[2022-12-19 20:33] VITALS: BP 117/55
[2022-12-19] MEDS: DOXAZOSIN 2 MG TABLET PO SCH (20:43)
[2022-12-19] MEDS: DONEPEZIL 10 MG TABLET PO SCH (20:43)
[2022-12-19] MEDS: AMITRIPTYLINE HCL 10 MG TABLET PO SCH (20:43)
[2022-12-20 04:30] VITALS: BP 115/71
--- NOTE | 2022-12-20 05:43 | NUR ---
Condition unchanged. AAOx2-3 forgetful at times. VSS. No acute distress noted. Fall precautions maintained. Admitted for generalized weakness, UTI Needs attended. All due meds given without difficulty. On po ABT for UTI. Fall precautions maintained. Siderails up for safety. Will monitor patient.
[2022-12-20] MEDS: PANTOPRAZOLE SODIUM 40 MG TABLET.DR PO SCH (06:07)
[2022-12-20] MEDS: LEVOTHYROXINE SODIUM 150 MCG TABLET PO SCH (06:07)
[2022-12-20] MEDS: BLOOD SUGAR DIAGNOSTIC 1 EACH STRIP VI SCH ×4 (06:44→21:23)
[2022-12-20 08:05] VITALS: BP 125/57
[2022-12-20] MEDS: GLUCERNA SHAKE 237 ML CAN PO SCH ×2 (08:47→17:32)
[2022-12-20] MEDS: PROTEIN SUPPLEMENT (PROSTAT) 30 ML LIQUID PO SCH (08:47)
[2022-12-20] MEDS: CIPROFLOXACIN HCL 250 MG TABLET PO SCH (08:48)
[2022-12-20] MEDS: METFORMIN XR 500 MG TAB.SR.24H PO SCH (08:49)
[2022-12-20] MEDS: DEXAMETHASONE 4 MG TABLET PO SCH (08:49)
[2022-12-20] MEDS: CLOPIDOGREL 75 MG TABLET PO SCH (08:50)
[2022-12-20] MEDS: MYRBETRIQ 50MG TABLET PO SCH (08:50)
[2022-12-20] MEDS: CHOLECALCIFEROL 1,000 UNIT TABLET PO SCH (08:50)
[2022-12-20] MEDS: LINAGLIPTIN 5 MG TABLET PO SCH (08:50)
[2022-12-20] MEDS: MEMANTINE HCL 10 MG TABLET PO SCH ×2 (08:50→17:31)
[2022-12-20] MEDS: POTASSIUM CHLORIDE 10 MEQ TAB.PRT.SR PO SCH ×2 (08:51→17:31)
[2022-12-20] MEDS: VALPROIC ACID 250 MG/5 ML LIQUID UDC PO SCH ×2 (08:55→17:31)
[2022-12-20] MEDS: CYANOCOBALAMIN 100 MCG TABLET PO SCH (08:57)
[2022-12-20] MEDS: NEOMY/BACITRAC/POLYMI OINT 28.35 GM TUBE TOP SCH (09:05)
[2022-12-20] MEDS: THERAHONEY GEL 1.5 OZ TUBE TOP SCH (09:05)
[2022-12-20] MEDS: INSULIN REGULAR, HUMAN 300 UNIT/3 ML VIAL SQ PRN ×3 (13:04→21:26)
[2022-12-20 15:55] VITALS: BP 101/56
[2022-12-20 20:26] VITALS: BP 126/54
[2022-12-20] MEDS: ACETAMINOPHEN 325 MG TABLET PO PRN (21:21)
[2022-12-20] MEDS: AMITRIPTYLINE HCL 10 MG TABLET PO SCH (21:21)
[2022-12-20] MEDS: DOXAZOSIN 2 MG TABLET PO SCH (21:21)
[2022-12-20] MEDS: DONEPEZIL 10 MG TABLET PO SCH (21:21)
[2022-12-21] MEDS: TEMAZEPAM 15 MG CAPSULE PO PRN ×2 (00:02→21:10)
--- NOTE | 2022-12-21 01:04 | NUR ---
Patient awake, alert, and confused. Right forearm saline lock intact. Room air. Generalized weakness noted. Patient incontinent of urine. Right hip dressing intact. Bed in low position,side rails up x3. Call carbajal in reach. Will continue to monitor
[2022-12-21 04:35] VITALS: BP 117/51
[2022-12-21] MEDS: PANTOPRAZOLE SODIUM 40 MG TABLET.DR PO SCH (05:56)
[2022-12-21] MEDS: LEVOTHYROXINE SODIUM 150 MCG TABLET PO SCH (05:56)
[2022-12-21] MEDS: BLOOD SUGAR DIAGNOSTIC 1 EACH STRIP VI SCH ×4 (06:53→21:13)
[2022-12-21 07:46] VITALS: BP 120/56
[2022-12-21] MEDS: INSULIN REGULAR, HUMAN 300 UNIT/3 ML VIAL SQ PRN ×4 (08:23→21:25)
[2022-12-21] MEDS: LINAGLIPTIN 5 MG TABLET PO SCH (08:24)
[2022-12-21] MEDS: CHOLECALCIFEROL 1,000 UNIT TABLET PO SCH (08:24)
[2022-12-21] MEDS: CLOPIDOGREL 75 MG TABLET PO SCH (08:24)
[2022-12-21] MEDS: MEMANTINE HCL 10 MG TABLET PO SCH ×2 (08:24→16:24)
[2022-12-21] MEDS: POTASSIUM CHLORIDE 10 MEQ TAB.PRT.SR PO SCH ×2 (08:24→16:24)
[2022-12-21] MEDS: CYANOCOBALAMIN 100 MCG TABLET PO SCH (08:25)
[2022-12-21] MEDS: VALPROIC ACID 250 MG/5 ML LIQUID UDC PO SCH ×2 (08:25→16:24)
[2022-12-21] MEDS: GLUCERNA SHAKE 237 ML CAN PO SCH ×2 (08:26→16:25)
[2022-12-21] MEDS: PROTEIN SUPPLEMENT (PROSTAT) 30 ML LIQUID PO SCH (08:26)
[2022-12-21] MEDS: MYRBETRIQ 50MG TABLET PO SCH (08:26)
[2022-12-21] MEDS: THERAHONEY GEL 1.5 OZ TUBE TOP SCH (08:27)
[2022-12-21] MEDS: NEOMY/BACITRAC/POLYMI OINT 28.35 GM TUBE TOP SCH (08:27)
[2022-12-21] MEDS: ACETAMINOPHEN 325 MG TABLET PO PRN (11:31)
[2022-12-21 15:55] VITALS: BP 119/61
[2022-12-21] MEDS: METFORMIN XR 500 MG TAB.SR.24H PO SCH (17:15)
--- NOTE | 2022-12-21 19:29 | NUR ---
patient family daughter and is here with patient most of the time, family likes to make her sit on wheelchair most of the day, education provided on turning, repositioning, and relieving pressure. family verbalized understanding of it.
[2022-12-21 20:30] VITALS: BP 112/46
[2022-12-21] MEDS: DOXAZOSIN 2 MG TABLET PO SCH (21:03)
[2022-12-21] MEDS: AMITRIPTYLINE HCL 10 MG TABLET PO SCH (21:05)
[2022-12-21] MEDS: DONEPEZIL 10 MG TABLET PO SCH (21:11)
[2022-12-22] MEDS: TEMAZEPAM 15 MG CAPSULE PO PRN (00:05)
[2022-12-22 04:25] VITALS: BP 110/47
--- NOTE | 2022-12-22 06:01 | NUR ---
Patient is asleep, confused as to whereabouts. No acute distress notedAsking for . Respiration are even and non-labored. Pt v/s are WNL. No c/o pain. Skin warm and dry to touch. Pt needs attended to kept. Pt given sleep medication, slept well.
[2022-12-22] MEDS: PANTOPRAZOLE SODIUM 40 MG TABLET.DR PO SCH (06:09)
[2022-12-22] MEDS: LEVOTHYROXINE SODIUM 150 MCG TABLET PO SCH (06:10)
[2022-12-22] MEDS: BLOOD SUGAR DIAGNOSTIC 1 EACH STRIP VI SCH ×4 (06:23→20:16)
[2022-12-22 06:53] LABS: HEMATOCRIT 34.1 % (31.2-41.9); MEAN CORPUSCULAR HEMOGLOBIN 30.3 uug (24.7-32.8); MEAN CORPUSCULAR VOLUME 89.1 fL (75.5-95.3); PLATELET COUNT (AUTO) 443 K/uL (179-408)
[2022-12-22 07:15] LABS: BILIRUBIN,TOTAL 0.6 mg/dL (0.2-1.0); CREATININE 1.2 mg/dL (0.6-1.3); PHOSPHOROUS 4.3 mg/dL (2.5-4.9); POTASSIUM 3.7 mmol/L (3.5-5.1); TOTAL PROTEIN, SERUM 6.6 g/dL (6.4-8.2)
[2022-12-22 07:52] VITALS: BP 123/60
[2022-12-22] MEDS: ACETAMINOPHEN 325 MG TABLET PO PRN (08:50)
[2022-12-22] MEDS: CYANOCOBALAMIN 100 MCG TABLET PO SCH (08:51)
[2022-12-22] MEDS: GLUCERNA SHAKE 237 ML CAN PO SCH ×2 (08:51→18:53)
[2022-12-22] MEDS: CHOLECALCIFEROL 1,000 UNIT TABLET PO SCH (08:51)
[2022-12-22] MEDS: MEMANTINE HCL 10 MG TABLET PO SCH ×2 (08:51→17:32)
[2022-12-22] MEDS: PROTEIN SUPPLEMENT (PROSTAT) 30 ML LIQUID PO SCH (08:51)
[2022-12-22] MEDS: VALPROIC ACID 250 MG/5 ML LIQUID UDC PO SCH ×2 (08:52→17:32)
[2022-12-22] MEDS: MYRBETRIQ 50MG TABLET PO SCH (08:52)
[2022-12-22] MEDS: POTASSIUM CHLORIDE 10 MEQ TAB.PRT.SR PO SCH ×2 (08:52→17:32)
[2022-12-22] MEDS: LINAGLIPTIN 5 MG TABLET PO SCH (08:52)
[2022-12-22] MEDS: CLOPIDOGREL 75 MG TABLET PO SCH (08:53)
[2022-12-22] MEDS: INSULIN REGULAR, HUMAN 300 UNIT/3 ML VIAL SQ PRN ×4 (09:04→20:26)
[2022-12-22] MEDS: THERAHONEY GEL 1.5 OZ TUBE TOP SCH (09:10)
[2022-12-22] MEDS: NEOMY/BACITRAC/POLYMI OINT 28.35 GM TUBE TOP SCH (09:11)
[2022-12-22] MEDS: OXYCODONE/APAP 5-325 MG TABLET PO PRN (10:42)
[2022-12-22 11:56] LABS: *BILIRUBIN,URIN NEGATIVE (NEGATIVE); *CLARITY,URINE CLEAR (CLEAR); *COLOR,URINE YELLOW (YELLOW); *KETONES,URINE NEGATIVE (NEGATIVE); *UROBILINOGEN,URINE 0.2 E.U./dl (NORMAL); LEUKOCYTE ESTERASE ,URINE 2+ (NEGATIVE); NITRITE, URINE NEGATIVE (NEGATIVE); PH,URINE 5.5 (5.0-8.0); UGLUCOSE NEGATIVE (NEGATIVE)
[2022-12-22 11:58] LABS: *BLOOD, URINE TRACE (NEGATIVE)
[2022-12-22 14:20] LABS: BACTERIA,URINE NONE SEEN /HPF (NONE SEEN); SQUAMOUS EPITHELIAL CELL,UR NONE SEEN /HPF (NONE SEEN)
[2022-12-22 14:21] LABS: RBC,URINE 0-3 /HPF (0-3)
[2022-12-22 14:24] LABS: YEAST,URINE MODERATE /HPF (NONE SEEN)
[2022-12-22 16:25] VITALS: BP 136/68
[2022-12-22 17:04] VITALS: BP 126/68
[2022-12-22] MEDS: METFORMIN XR 500 MG TAB.SR.24H PO SCH (17:33)
[2022-12-22 20:00] VITALS: BP 125/59
--- NOTE | 2022-12-22 20:15 | NUR ---
RECEIVED REPORT FROM LUIS MANUEL HDZ, TAE SHIFT. PATIENT IS ALERT & ORIENTED X1-2, AND SPEAKS [place]ORE[place]. VITAL SIGNS STABLE. PATIENT HAD COMPLAINT OF PAIN. RN GAVE PAIN MEDICATIONS ORDERED BY MD. PATIENT EXPRESSED COMFORTABLE. PATIENT PARTICIPATES WITH PHYSICAL AND OCCUPATIONAL THERAPY SCHEDULED. PATIENT TOLERATES PO AND DIET WELL. COLLECTED UA PER MD REQUEST. PATIENT'S , DAUGHTER, AND GRANDDAUGHTER VISITED. NO ACUTE DISTRESS. ALL NEEDS MET AT THIS TIME. FALL PRECAUTIONS OBSERVED. CALL LIGHT WITHIN REACH. ENDORSED CARE TO LUIS MANUEL BILLY, [facility] SHIFT FOR CONTINUATION OF CARE.
[2022-12-22] MEDS: DONEPEZIL 10 MG TABLET PO SCH (20:24)
[2022-12-22] MEDS: AMITRIPTYLINE HCL 10 MG TABLET PO SCH (20:24)
[2022-12-22] MEDS: DOXAZOSIN 2 MG TABLET PO SCH (20:25)
[2022-12-23 04:00] VITALS: BP 126/62
[2022-12-23] MEDS: PANTOPRAZOLE SODIUM 40 MG TABLET.DR PO SCH (06:22)
[2022-12-23] MEDS: LEVOTHYROXINE SODIUM 150 MCG TABLET PO SCH (06:22)
[2022-12-23] MEDS: BLOOD SUGAR DIAGNOSTIC 1 EACH STRIP VI SCH ×4 (06:22→20:19)
[2022-12-23 07:36] VITALS: BP 119/47
[2022-12-23] MEDS: INSULIN REGULAR, HUMAN 300 UNIT/3 ML VIAL SQ PRN ×3 (07:43→20:20)
[2022-12-23] MEDS: CLOPIDOGREL 75 MG TABLET PO SCH (09:09)
[2022-12-23] MEDS: VALPROIC ACID 250 MG/5 ML LIQUID UDC PO SCH ×2 (09:09→17:11)
[2022-12-23] MEDS: OXYCODONE/APAP 5-325 MG TABLET PO PRN ×2 (09:10→18:25)
[2022-12-23] MEDS: LINAGLIPTIN 5 MG TABLET PO SCH (09:10)
[2022-12-23] MEDS: MEMANTINE HCL 10 MG TABLET PO SCH ×2 (09:10→17:11)
[2022-12-23] MEDS: POTASSIUM CHLORIDE 10 MEQ TAB.PRT.SR PO SCH ×2 (09:11→17:11)
[2022-12-23] MEDS: GLUCERNA SHAKE 237 ML CAN PO SCH ×2 (09:11→17:11)
[2022-12-23] MEDS: FLUCONAZOLE 100 MG TABLET PO SCH (09:11)
[2022-12-23] MEDS: CHOLECALCIFEROL 1,000 UNIT TABLET PO SCH (09:11)
[2022-12-23] MEDS: MYRBETRIQ 50MG TABLET PO SCH (09:11)
[2022-12-23] MEDS: CYANOCOBALAMIN 100 MCG TABLET PO SCH (09:11)
[2022-12-23] MEDS: PROTEIN SUPPLEMENT (PROSTAT) 30 ML LIQUID PO SCH (09:11)
[2022-12-23] MEDS: NEOMY/BACITRAC/POLYMI OINT 28.35 GM TUBE TOP SCH (09:24)
[2022-12-23] MEDS: THERAHONEY GEL 1.5 OZ TUBE TOP SCH (09:24)
[2022-12-23] MEDS ORDERED: KETOROLAC TROMETHAMINE 30 MG INJ IM ONE (11:00)
[2022-12-23 15:50] VITALS: BP 110/54
[2022-12-23] MEDS: METFORMIN XR 500 MG TAB.SR.24H PO SCH (17:11)
--- NOTE | 2022-12-23 19:53 | NUR ---
RECEIVED REPORT FROM LUIS MANUEL BILLY, TAE SHIFT. PATIENT IS ALERT & ORIENTED X1-2, AND SPEAKS [place]. VITAL SIGNS STABLE. PATIENT HAD COMPLAINT OF PAIN. RN GAVE PAIN MEDICATIONS ORDERED BY MD. PATIENT EXPRESSED COMFORTABLE. PATIENT PARTICIPATES WITH PHYSICAL AND OCCUPATIONAL THERAPY SCHEDULED. PATIENT TOLERATES PO AND DIET WELL. PATIENT'S , DAUGHTER, AND SON VISITED. NO ACUTE DISTRESS. ALL NEEDS MET AT THIS TIME. FALL PRECAUTIONS OBSERVED. CALL LIGHT WITHIN REACH. ENDORSED CARE TO LUIS MANUEL MEDINA, NOC SHIFT FOR CONTINUATION OF CARE.
[2022-12-23 20:00] VITALS: BP 127/66
--- NOTE | 2022-12-23 20:00 | NUR ---
NSG: Received patient lying in bed. alert and oriented x2, pleasant upon approach. no sob, respiration even and unlabored, skin warm and dry to touch, kept clean and dry, repositioned q 2 hrs for skin safety. no acute distress noted.
[2022-12-23] MEDS: DONEPEZIL 10 MG TABLET PO SCH (20:14)
[2022-12-23] MEDS: AMITRIPTYLINE HCL 10 MG TABLET PO SCH (20:14)
[2022-12-23] MEDS: DOXAZOSIN 2 MG TABLET PO SCH (20:15)
--- NOTE | 2022-12-24 00:46 | NUR ---
GPS: Resting quietly. no s/s of pain or discomfort noted. assisted with adl's. call light w/in reach.
--- NOTE | 2022-12-24 04:41 | NUR ---
NSG: Remain calm and cooperative with meds and care.alert and oriented x1-2. No acute distress noted. Respiration are even and non-labored. Pt v/s are WNL. No c/o pain. Skin warm and dry to touch. assisted with adl's. pt slept well. call light w/in reach.
[2022-12-24 05:52] VITALS: BP 115/55
[2022-12-24] MEDS: LEVOTHYROXINE SODIUM 150 MCG TABLET PO SCH (06:03)
[2022-12-24] MEDS: PANTOPRAZOLE SODIUM 40 MG TABLET.DR PO SCH (06:03)
[2022-12-24] MEDS: BLOOD SUGAR DIAGNOSTIC 1 EACH STRIP VI SCH ×4 (06:28→20:31)
[2022-12-24 08:00] VITALS: BP 115/43
[2022-12-24] MEDS: GLUCERNA SHAKE 237 ML CAN PO SCH ×2 (08:00→17:24)
[2022-12-24] MEDS: LINAGLIPTIN 5 MG TABLET PO SCH (08:27)
[2022-12-24] MEDS: CLOPIDOGREL 75 MG TABLET PO SCH (08:27)
[2022-12-24] MEDS: CHOLECALCIFEROL 1,000 UNIT TABLET PO SCH (08:27)
[2022-12-24] MEDS: CYANOCOBALAMIN 100 MCG TABLET PO SCH (08:28)
[2022-12-24] MEDS: MEMANTINE HCL 10 MG TABLET PO SCH ×2 (08:28→17:02)
[2022-12-24] MEDS: NEOMY/BACITRAC/POLYMI OINT 28.35 GM TUBE TOP SCH (08:28)
[2022-12-24] MEDS: FLUCONAZOLE 100 MG TABLET PO SCH (08:28)
[2022-12-24] MEDS: POTASSIUM CHLORIDE 10 MEQ TAB.PRT.SR PO SCH ×2 (08:28→17:02)
[2022-12-24] MEDS: THERAHONEY GEL 1.5 OZ TUBE TOP SCH (08:28)
[2022-12-24] MEDS: MYRBETRIQ 50MG TABLET PO SCH (08:29)
[2022-12-24] MEDS: PROTEIN SUPPLEMENT (PROSTAT) 30 ML LIQUID PO SCH (08:30)
[2022-12-24] MEDS: VALPROIC ACID 250 MG/5 ML LIQUID UDC PO SCH ×2 (08:33→17:02)
[2022-12-24] MEDS: INSULIN REGULAR, HUMAN 300 UNIT/3 ML VIAL SQ PRN ×3 (08:36→17:21)
[2022-12-24] MEDS: OXYCODONE/APAP 5-325 MG TABLET PO PRN ×2 (08:40→21:47)
[2022-12-24] MEDS: LIDOCAINE 5% PATCH TD SCH (14:26)
--- NOTE | 2022-12-24 15:18 | NUR ---
INTERDISCIPLINARY TEAM CONFERENCE
[2022-12-24 16:00] VITALS: BP 114/60
[2022-12-24] MEDS: METFORMIN XR 500 MG TAB.SR.24H PO SCH (17:03)
--- NOTE | 2022-12-24 18:30 | NUR ---
Pt tolerated physical therapy new Lidocaine patch applied earlier on lower back if effective per patient. Pt is in no acute distress.
[2022-12-24 20:21] VITALS: BP 128/58
[2022-12-24] MEDS: AMITRIPTYLINE HCL 10 MG TABLET PO SCH (20:31)
[2022-12-24] MEDS: DOXAZOSIN 2 MG TABLET PO SCH (20:31)
[2022-12-24] MEDS: DONEPEZIL 10 MG TABLET PO SCH (20:31)
[2022-12-25 05:37] VITALS: BP 116/64
[2022-12-25] MEDS: BLOOD SUGAR DIAGNOSTIC 1 EACH STRIP VI SCH ×4 (06:08→20:29)
[2022-12-25] MEDS: PANTOPRAZOLE SODIUM 40 MG TABLET.DR PO SCH (06:08)
[2022-12-25] MEDS: LEVOTHYROXINE SODIUM 150 MCG TABLET PO SCH (06:08)
[2022-12-25 07:50] VITALS: BP 122/59
[2022-12-25] MEDS: PROTEIN SUPPLEMENT (PROSTAT) 30 ML LIQUID PO SCH (08:15)
[2022-12-25] MEDS: MYRBETRIQ 50MG TABLET PO SCH (08:15)
[2022-12-25] MEDS: GLUCERNA SHAKE 237 ML CAN PO SCH ×2 (08:15→17:40)
[2022-12-25] MEDS: CYANOCOBALAMIN 100 MCG TABLET PO SCH (08:16)
[2022-12-25] MEDS: POTASSIUM CHLORIDE 10 MEQ TAB.PRT.SR PO SCH ×2 (08:16→17:39)
[2022-12-25] MEDS: MODAFINIL 100 MG TABLET PO SCH (08:16)
[2022-12-25] MEDS: LIDOCAINE 5% PATCH TD SCH (08:16)
[2022-12-25] MEDS: MEMANTINE HCL 10 MG TABLET PO SCH ×2 (08:16→17:40)
[2022-12-25] MEDS: CLOPIDOGREL 75 MG TABLET PO SCH (08:16)
[2022-12-25] MEDS: CHOLECALCIFEROL 1,000 UNIT TABLET PO SCH (08:16)
[2022-12-25] MEDS: LINAGLIPTIN 5 MG TABLET PO SCH (08:16)
[2022-12-25] MEDS: FLUCONAZOLE 100 MG TABLET PO SCH (08:16)
[2022-12-25] MEDS: NEOMY/BACITRAC/POLYMI OINT 28.35 GM TUBE TOP SCH (08:17)
[2022-12-25] MEDS: THERAHONEY GEL 1.5 OZ TUBE TOP SCH (08:17)
[2022-12-25] MEDS: INSULIN REGULAR, HUMAN 300 UNIT/3 ML VIAL SQ PRN ×3 (08:20→20:30)
[2022-12-25] MEDS: VALPROIC ACID 250 MG/5 ML LIQUID UDC PO SCH ×2 (08:46→17:39)
--- NOTE | 2022-12-25 13:42 | NUR ---
Called and spoke with pharmacist and Moises who confirmed that Dr. Perry ordered another [place] to be given in the 1300 hour for back pain.
[2022-12-25] MEDS: HYDROCODONE/APAP 10-325 MG TABLET PO SCH ×2 (13:51→18:06)
--- NOTE | 2022-12-25 15:17 | NUR ---
Entry for 12/24/22: Meeting held on 12/24/22 @ 1pm- order given from Dr. Perry rehab medical videographer for a psych eval. Order noted and carried out. Endorsed properly for proper follow up.
[2022-12-25 15:51] VITALS: BP 105/63
--- NOTE | 2022-12-25 16:17 | NUR ---
Inspected pt's heels, feet and ankles, all WNL, cap refill <3 secs, pedal pulses positive, no s/s of necrosis noted.
[2022-12-25] MEDS: METFORMIN XR 500 MG TAB.SR.24H PO SCH (17:40)
[2022-12-25 20:00] VITALS: BP 104/54
[2022-12-25] MEDS: AMITRIPTYLINE HCL 10 MG TABLET PO SCH (20:25)
[2022-12-25] MEDS: DONEPEZIL 10 MG TABLET PO SCH (20:25)
[2022-12-25] MEDS: DOXAZOSIN 2 MG TABLET PO SCH (20:29)
[2022-12-25] MEDS: TEMAZEPAM 15 MG CAPSULE PO PRN (23:54)
[2022-12-26 04:00] VITALS: BP 104/50
[2022-12-26] MEDS: PANTOPRAZOLE SODIUM 40 MG TABLET.DR PO SCH (06:07)
[2022-12-26] MEDS: LEVOTHYROXINE SODIUM 150 MCG TABLET PO SCH (06:07)
[2022-12-26] MEDS: BLOOD SUGAR DIAGNOSTIC 1 EACH STRIP VI SCH ×4 (06:42→20:35)
[2022-12-26 07:43] VITALS: BP 117/60
[2022-12-26] MEDS: CHOLECALCIFEROL 1,000 UNIT TABLET PO SCH (08:43)
[2022-12-26] MEDS: GLUCERNA SHAKE 237 ML CAN PO SCH ×2 (08:43→17:31)
[2022-12-26] MEDS: FLUCONAZOLE 100 MG TABLET PO SCH (08:43)
[2022-12-26] MEDS: VALPROIC ACID 250 MG/5 ML LIQUID UDC PO SCH ×2 (08:43→18:02)
[2022-12-26] MEDS: PROTEIN SUPPLEMENT (PROSTAT) 30 ML LIQUID PO SCH (08:43)
[2022-12-26] MEDS: POTASSIUM CHLORIDE 10 MEQ TAB.PRT.SR PO SCH ×2 (08:43→18:02)
[2022-12-26] MEDS: LINAGLIPTIN 5 MG TABLET PO SCH (08:45)
[2022-12-26] MEDS: CLOPIDOGREL 75 MG TABLET PO SCH (08:45)
[2022-12-26] MEDS: CYANOCOBALAMIN 100 MCG TABLET PO SCH (08:45)
[2022-12-26] MEDS: MEMANTINE HCL 10 MG TABLET PO SCH ×2 (08:46→18:01)
[2022-12-26] MEDS: HYDROCODONE/APAP 10-325 MG TABLET PO SCH ×2 (08:46→18:01)
[2022-12-26] MEDS: MYRBETRIQ 50MG TABLET PO SCH (08:48)
[2022-12-26] MEDS: LIDOCAINE 5% PATCH TD SCH (08:49)
[2022-12-26] MEDS: MODAFINIL 100 MG TABLET PO SCH (08:49)
[2022-12-26] MEDS: THERAHONEY GEL 1.5 OZ TUBE TOP SCH (08:49)
[2022-12-26] MEDS: NEOMY/BACITRAC/POLYMI OINT 28.35 GM TUBE TOP SCH (08:50)
[2022-12-26] MEDS ORDERED: LIDOCAINE 1%-EPI 1:100,000 20 ML VIAL IJ PRN (10:30)
[2022-12-26] MEDS ORDERED: SILVER NITRATE APPLICATOR STICK EACH TP PRN (10:30)
[2022-12-26] MEDS: INSULIN REGULAR, HUMAN 300 UNIT/3 ML VIAL SQ PRN ×3 (13:12→20:36)
[2022-12-26 15:36] LABS: HEMATOCRIT 34.6 % (31.2-41.9); MEAN CORPUSCULAR HEMOGLOBIN 30.1 uug (24.7-32.8); MEAN CORPUSCULAR VOLUME 90.5 fL (75.5-95.3); PLATELET COUNT (AUTO) 354 K/uL (179-408)
[2022-12-26 15:45] LABS: CREATININE 1.2 mg/dL (0.6-1.3); POTASSIUM 4.2 mmol/L (3.5-5.1)
[2022-12-26 15:52] LABS: BILIRUBIN,TOTAL 0.7 mg/dL (0.2-1.0); TOTAL PROTEIN, SERUM 6.5 g/dL (6.4-8.2)
[2022-12-26] MEDS: METFORMIN XR 500 MG TAB.SR.24H PO SCH (18:07)
--- NOTE | 2022-12-26 18:49 | NUR ---
SHIFT NOTE: RECEIVED REPORT FROM AM NURSE PT IS ALERT AND ORIENTED X2-3 NO SIGNS OF DISTRESSED NOTED. PT TOOK MEDICATION ORDERED NO SIGNS OF ADVERSE REACTION NOTED. PT AM BLOOD SUGAR WAS 123 NO COVERAGE REQUIRED NO SIGNS OF DIABETIC REACTION NOTED. PT AFTERNOON BLOOD IS 136 PT WAS GIVEN 2 UNIT S OF REGULAR INSULIN NO SIGNS OF DIABETIC REACTION NOTED. PT TOOK ALL MEDICATIONS. PT WAS SEEN BY ARU MD DR BUI HE ORDERED CT SCAN OF LUMBAR SPINE ORDERED. PROCEDURE ORDERED. WILL ENDORSE TO SCARF AND ANNEAL OPERATOR NURSE.
[2022-12-26 20:05] VITALS: BP 101/55
[2022-12-26] MEDS: DONEPEZIL 10 MG TABLET PO SCH (20:33)
[2022-12-26] MEDS: AMITRIPTYLINE HCL 10 MG TABLET PO SCH (20:33)
[2022-12-26] MEDS: DOXAZOSIN 2 MG TABLET PO SCH (20:34)
[2022-12-26] MEDS: REMEDY ESSENTIAL ZINC PASTE 113 GM TOP PRN (20:36)
[2022-12-27 04:00] VITALS: BP 133/61
[2022-12-27] MEDS: LEVOTHYROXINE SODIUM 150 MCG TABLET PO SCH (06:11)
[2022-12-27] MEDS: PANTOPRAZOLE SODIUM 40 MG TABLET.DR PO SCH (06:11)
[2022-12-27] MEDS: BLOOD SUGAR DIAGNOSTIC 1 EACH STRIP VI SCH ×4 (06:33→21:21)
[2022-12-27 08:00] VITALS: BP 126/58
[2022-12-27] MEDS: LINAGLIPTIN 5 MG TABLET PO SCH (08:50)
[2022-12-27] MEDS: HYDROCODONE/APAP 10-325 MG TABLET PO SCH ×2 (08:50→17:25)
[2022-12-27] MEDS: MODAFINIL 100 MG TABLET PO SCH (08:50)
[2022-12-27] MEDS: CHOLECALCIFEROL 1,000 UNIT TABLET PO SCH (08:50)
[2022-12-27] MEDS: CLOPIDOGREL 75 MG TABLET PO SCH (08:50)
[2022-12-27] MEDS: FLUCONAZOLE 100 MG TABLET PO SCH (08:50)
[2022-12-27] MEDS: POTASSIUM CHLORIDE 10 MEQ TAB.PRT.SR PO SCH ×2 (08:50→17:25)
[2022-12-27] MEDS: CYANOCOBALAMIN 100 MCG TABLET PO SCH (08:50)
[2022-12-27] MEDS: MEMANTINE HCL 10 MG TABLET PO SCH ×2 (08:50→17:25)
[2022-12-27] MEDS: PROTEIN SUPPLEMENT (PROSTAT) 30 ML LIQUID PO SCH (08:51)
[2022-12-27] MEDS: LIDOCAINE 5% PATCH TD SCH (08:51)
[2022-12-27] MEDS: GLUCERNA SHAKE 237 ML CAN PO SCH ×2 (08:51→17:25)
[2022-12-27] MEDS: MYRBETRIQ 50MG TABLET PO SCH (08:52)
[2022-12-27] MEDS: VALPROIC ACID 250 MG/5 ML LIQUID UDC PO SCH ×2 (08:52→17:25)
[2022-12-27] MEDS: NEOMY/BACITRAC/POLYMI OINT 28.35 GM TUBE TOP SCH (08:53)
[2022-12-27] MEDS: INSULIN REGULAR, HUMAN 300 UNIT/3 ML VIAL SQ PRN ×3 (08:53→21:19)
[2022-12-27] MEDS: THERAHONEY GEL 1.5 OZ TUBE TOP SCH (08:53)
--- NOTE | 2022-12-27 11:58 | NUR ---
Noted with buttocks excessive dry skin and redness and noted with left heel blanchable redness, mepilex applied, floated heels on the pillows. wound consult is in place. patient and her reinforced educations for preventive measures of pressure ulcers. patient verbalized understanding of it. continue with nursing measures to prevent pressure ulcers and continue to inspect skin every shift, report changes to MD. Addendum: 12/27/22 at 1207 by ANAMIKA FIERRO RN, RN Right heel skin is intact, no redness or no complications noted, floated in pillows while in bed, to prevent pressure sore complications.
[2022-12-27] MEDS: CLOTRIMAZOLE/BETAMET DIPROP CREAM 15 GM TUBE TOP SCH ×2 (14:44→21:21)
[2022-12-27 16:00] VITALS: BP 108/60
[2022-12-27] MEDS: METFORMIN XR 500 MG TAB.SR.24H PO SCH (18:00)
[2022-12-27 20:00] VITALS: BP 114/53
[2022-12-27] MEDS: DOXAZOSIN 2 MG TABLET PO SCH (21:15)
[2022-12-27] MEDS: AMITRIPTYLINE HCL 10 MG TABLET PO SCH (21:15)
[2022-12-27] MEDS: DONEPEZIL 10 MG TABLET PO SCH (21:19)
[2022-12-28 04:30] VITALS: BP 104/49
[2022-12-28] MEDS: LEVOTHYROXINE SODIUM 150 MCG TABLET PO SCH (06:25)
[2022-12-28] MEDS: PANTOPRAZOLE SODIUM 40 MG TABLET.DR PO SCH (06:26)
[2022-12-28] MEDS: BLOOD SUGAR DIAGNOSTIC 1 EACH STRIP VI SCH ×4 (06:43→21:28)
[2022-12-28 07:41] VITALS: BP 98/50
[2022-12-28] MEDS: HYDROCODONE/APAP 10-325 MG TABLET PO SCH ×2 (08:08→17:23)
[2022-12-28] MEDS: LINAGLIPTIN 5 MG TABLET PO SCH (08:08)
[2022-12-28] MEDS: FLUCONAZOLE 100 MG TABLET PO SCH (08:09)
[2022-12-28] MEDS: MEMANTINE HCL 10 MG TABLET PO SCH ×2 (08:09→17:22)
[2022-12-28] MEDS: POTASSIUM CHLORIDE 10 MEQ TAB.PRT.SR PO SCH ×2 (08:09→17:22)
[2022-12-28] MEDS: CHOLECALCIFEROL 1,000 UNIT TABLET PO SCH (08:09)
[2022-12-28] MEDS: MODAFINIL 100 MG TABLET PO SCH (08:09)
[2022-12-28] MEDS: CLOPIDOGREL 75 MG TABLET PO SCH (08:09)
[2022-12-28] MEDS: VALPROIC ACID 250 MG/5 ML LIQUID UDC PO SCH ×2 (08:10→17:22)
[2022-12-28] MEDS: MYRBETRIQ 50MG TABLET PO SCH (08:10)
[2022-12-28] MEDS: CYANOCOBALAMIN 100 MCG TABLET PO SCH (08:10)
[2022-12-28] MEDS: GLUCERNA SHAKE 237 ML CAN PO SCH ×2 (08:10→17:22)
[2022-12-28] MEDS: CLOTRIMAZOLE/BETAMET DIPROP CREAM 15 GM TUBE TOP SCH ×2 (08:11→21:29)
[2022-12-28] MEDS: LIDOCAINE 5% PATCH TD SCH (08:11)
[2022-12-28] MEDS: THERAHONEY GEL 1.5 OZ TUBE TOP SCH (08:12)
[2022-12-28] MEDS: NEOMY/BACITRAC/POLYMI OINT 28.35 GM TUBE TOP SCH (08:12)
[2022-12-28] MEDS: INSULIN REGULAR, HUMAN 300 UNIT/3 ML VIAL SQ PRN ×3 (08:13→16:30)
[2022-12-28] MEDS: PROTEIN SUPPLEMENT (PROSTAT) 30 ML LIQUID PO SCH (08:14)
[2022-12-28 15:53] VITALS: BP 104/57
--- NOTE | 2022-12-28 16:39 | NUR ---
patient is to her baseline, no sob, respirations are even nonlabored, skin warm and dry to touch, patient was sitting in chair with her . turned, repositioned while in bed, heels floated on pillows while in bed, left heel blanchable redness, however skin is intact, right heel skin intact no complications noted. continue with plan of care.
[2022-12-28] MEDS: METFORMIN XR 500 MG TAB.SR.24H PO SCH (17:22)
--- NOTE | 2022-12-28 19:18 | NUR ---
Receive pt in bed a/a/ox1. Pt is on room air and bedridden. All safety measures are in place. Side rails up times 3. bed alarm on and call light within reach. Will continue pts plan of care.
[2022-12-28 20:00] VITALS: BP 108/49
[2022-12-28] MEDS: AMITRIPTYLINE HCL 10 MG TABLET PO SCH (21:21)
[2022-12-28] MEDS: DONEPEZIL 10 MG TABLET PO SCH (21:21)
[2022-12-28] MEDS: DOXAZOSIN 2 MG TABLET PO SCH (21:21)
[2022-12-28] MEDS: MIRALAX 17 GM POWD.PACK PO SCH (21:28)
[2022-12-29 04:00] VITALS: BP 112/53
[2022-12-29] MEDS: PANTOPRAZOLE SODIUM 40 MG TABLET.DR PO SCH (06:42)
[2022-12-29] MEDS: LEVOTHYROXINE SODIUM 150 MCG TABLET PO SCH (06:42)
[2022-12-29] MEDS: BLOOD SUGAR DIAGNOSTIC 1 EACH STRIP VI SCH ×4 (06:48→20:23)
[2022-12-29] MEDS: INSULIN REGULAR, HUMAN 300 UNIT/3 ML VIAL SQ PRN ×4 (07:46→20:24)
[2022-12-29 07:47] VITALS: BP 125/50
--- NOTE | 2022-12-29 07:53 | NUR ---
Report given to oncoming RN to continue pts plan of care.
[2022-12-29] MEDS: GLUCERNA SHAKE 237 ML CAN PO SCH ×2 (08:37→16:44)
[2022-12-29] MEDS: PROTEIN SUPPLEMENT (PROSTAT) 30 ML LIQUID PO SCH (08:38)
[2022-12-29] MEDS: LINAGLIPTIN 5 MG TABLET PO SCH (08:46)
[2022-12-29] MEDS: FLUCONAZOLE 100 MG TABLET PO SCH (08:46)
[2022-12-29] MEDS: CHOLECALCIFEROL 1,000 UNIT TABLET PO SCH (08:46)
[2022-12-29] MEDS: POTASSIUM CHLORIDE 10 MEQ TAB.PRT.SR PO SCH ×2 (08:46→16:32)
[2022-12-29] MEDS: CLOPIDOGREL 75 MG TABLET PO SCH (08:46)
[2022-12-29] MEDS: HYDROCODONE/APAP 10-325 MG TABLET PO SCH (08:46)
[2022-12-29] MEDS: MEMANTINE HCL 10 MG TABLET PO SCH ×2 (08:46→16:32)
[2022-12-29] MEDS: MODAFINIL 100 MG TABLET PO SCH (08:46)
[2022-12-29] MEDS: CYANOCOBALAMIN 100 MCG TABLET PO SCH (08:46)
[2022-12-29] MEDS: MYRBETRIQ 50MG TABLET PO SCH (08:47)
[2022-12-29] MEDS: VALPROIC ACID 250 MG/5 ML LIQUID UDC PO SCH ×2 (08:49→16:43)
[2022-12-29] MEDS: CLOTRIMAZOLE/BETAMET DIPROP CREAM 15 GM TUBE TOP SCH ×2 (08:50→20:52)
[2022-12-29] MEDS: THERAHONEY GEL 1.5 OZ TUBE TOP SCH (08:50)
[2022-12-29] MEDS: LIDOCAINE 5% PATCH TD SCH (08:51)
[2022-12-29] MEDS: REMEDY ESSENTIAL ZINC PASTE 113 GM TOP PRN (08:51)
--- NOTE | 2022-12-29 10:29 | NUR ---
0730-Rec'd patient in bed, asleep, on R/A and saturating well, no respiratory distress/SOB, patient wakes up on verbal commands, denies pain. Offered oral fluids and taken well. Safety measures in place and call light at reach. 0900-Scheduled medications administered as ordered by MD. No ASE noted. Oral fluids encouraged as mouna. and taken well. Repositioned patient to pro mote comfort and facilitate pressure relief.Call light within reach. 10:00-Patient awake in her bed, rec'd a visit from her and at bedside conversing with patient.
--- NOTE | 2022-12-29 11:55 | NUR ---
1000-Patient on Triple atb ointment to RT ear wound. Not administered at this time yet due to not on hand. Spoke to pharmacy personnel and will provide today.
[2022-12-29] MEDS: NEOMY/BACITRAC/POLYMI OINT 28.35 GM TUBE TOP SCH (12:51)
--- NOTE | 2022-12-29 13:20 | NUR ---
WOUND CARE CONSULT: PT PRESENTS WITH RT EAR FRAGILE AREA (PREVIOUS SCAB), SACRAL INTACT DEEP TISSUE INJURY AND RT HIP UNSTAGEABLE PRESSURE ULCER, ALL PRESENT ON ADMISSION. DR MOULTON CALLED FOR RT HIP WOUND. DISCUSSED SKIN PROTECTION WITH NURSING STAFF. MD IN AGREEMENT WITH PLAN OF CARE.
[2022-12-29] MEDS: OXYCODONE HCL 5 MG TABLET PO SCH ×2 (13:59→18:00)
[2022-12-29] MEDS ORDERED: DEXAMETHASONE 4 MG TABLET PO SCH (14:00)
[2022-12-29] MEDS: METHOCARBAMOL 500 MG TABLET PO SCH ×2 (14:49→16:43)
[2022-12-29 15:47] VITALS: BP 99/51
--- NOTE | 2022-12-29 17:15 | NUR ---
ORDERED BY MID LINE INSERTED TO HAYDEN, PROCEDURE EXPLAINED PRIOR INSERTION. ASEPTIC TECH APPLIED, PATIENT TOLERATED WELL PROCEDURE, NO C/O PAIN. ML FLUSHING WELL.
[2022-12-29] MEDS: METFORMIN XR 500 MG TAB.SR.24H PO SCH (17:32)
--- NOTE | 2022-12-29 19:22 | NUR ---
No changes in condition noted. Patient has orders to hold Plavix x5 days pre-epidural preparation. No s/s of hypo/HTN noted. Extensive assist provided with ADLS, Repositioned Q2HRs to promote comfort and facilitate pressure relief. All needs attended and met. RT hip debridement done by senior marketing specialist (nurse)
[2022-12-29] MEDS: MIRALAX 17 GM POWD.PACK PO SCH (20:22)
[2022-12-29] MEDS: DONEPEZIL 10 MG TABLET PO SCH (20:22)
[2022-12-29] MEDS: AMITRIPTYLINE HCL 10 MG TABLET PO SCH (20:22)
[2022-12-29] MEDS: DOXAZOSIN 2 MG TABLET PO SCH (20:22)
[2022-12-29 20:32] VITALS: BP 138/57
[2022-12-30 04:11] VITALS: BP 114/73
[2022-12-30] MEDS: DEXAMETHASONE SOD PHOSPHATE 4 MG INJ IV SCH ×3 (05:53→21:17)
[2022-12-30] MEDS: LEVOTHYROXINE SODIUM 150 MCG TABLET PO SCH (06:19)
[2022-12-30] MEDS: PANTOPRAZOLE SODIUM 40 MG TABLET.DR PO SCH (06:19)
[2022-12-30] MEDS: BLOOD SUGAR DIAGNOSTIC 1 EACH STRIP VI SCH ×4 (06:29→21:08)
[2022-12-30 07:30] VITALS: BP 113/50
[2022-12-30] MEDS: INSULIN REGULAR, HUMAN 300 UNIT/3 ML VIAL SQ PRN ×4 (07:45→21:17)
[2022-12-30] MEDS: GLUCERNA SHAKE 237 ML CAN PO SCH ×2 (07:51→17:20)
[2022-12-30] MEDS: CYANOCOBALAMIN 100 MCG TABLET PO SCH (08:29)
[2022-12-30] MEDS: CHOLECALCIFEROL 1,000 UNIT TABLET PO SCH (08:29)
[2022-12-30] MEDS: FLUCONAZOLE 100 MG TABLET PO SCH (08:29)
[2022-12-30] MEDS: MEMANTINE HCL 10 MG TABLET PO SCH ×2 (08:29→16:36)
[2022-12-30] MEDS: LINAGLIPTIN 5 MG TABLET PO SCH (08:29)
[2022-12-30] MEDS: METHOCARBAMOL 500 MG TABLET PO SCH ×3 (08:29→16:36)
[2022-12-30] MEDS: PROTEIN SUPPLEMENT (PROSTAT) 30 ML LIQUID PO SCH (08:30)
[2022-12-30] MEDS: VALPROIC ACID 250 MG/5 ML LIQUID UDC PO SCH ×2 (08:35→16:36)
[2022-12-30] MEDS: OXYCODONE HCL 5 MG TABLET PO SCH ×2 (08:36→17:57)
[2022-12-30] MEDS: POTASSIUM CHLORIDE 10 MEQ TAB.PRT.SR PO SCH ×2 (08:39→16:36)
[2022-12-30] MEDS: MODAFINIL 100 MG TABLET PO SCH (08:39)
[2022-12-30] MEDS: MYRBETRIQ 50MG TABLET PO SCH (08:40)
[2022-12-30] MEDS: LIDOCAINE 5% PATCH TD SCH (09:17)
[2022-12-30] MEDS: THERAHONEY GEL 1.5 OZ TUBE TOP SCH (09:18)
[2022-12-30] MEDS: CLOTRIMAZOLE/BETAMET DIPROP CREAM 15 GM TUBE TOP SCH ×2 (09:18→21:06)
[2022-12-30] MEDS: NEOMY/BACITRAC/POLYMI OINT 28.35 GM TUBE TOP SCH (09:19)
[2022-12-30 15:38] VITALS: BP 98/51
[2022-12-30] MEDS: METFORMIN XR 500 MG TAB.SR.24H PO SCH (17:57)
--- NOTE | 2022-12-30 18:32 | NUR ---
Patient alert to self with confusion and forgetful, reality orientation provided as needed with help. Patient is total assist with her care, incontinent of both. Care provided at routine intervals and as needed. No s/s o hypo/hyperglycemia, hypo/HTN noted. Patient with good appetite, eating and drinking well, no C/O GI discomfort. Continues under rehab for PT/OT skilled services as ordered & mouna. fairly. Patient's siblings/ visit her consistently and on a daily basis. Patient in good stable conditions. ML to MOISES infusing well with site intact.
[2022-12-30 20:10] VITALS: BP 94/59
[2022-12-30] MEDS: DOXAZOSIN 2 MG TABLET PO SCH (21:00)
[2022-12-30] MEDS: MIRALAX 17 GM POWD.PACK PO SCH (21:05)
[2022-12-30] MEDS: DONEPEZIL 10 MG TABLET PO SCH (21:05)
[2022-12-30] MEDS: AMITRIPTYLINE HCL 10 MG TABLET PO SCH (21:05)
--- NOTE | 2022-12-31 04:13 | NUR ---
AAOx1-2 All needs attended. VSS Kept comfortable. No acute distress noted. Admitted for acute metabolic encepalopathy. Fall precautions maintained. Siderails up for safety. Turned q 2hr. Will monitor patient. Needs attended. Fall precautions maintained. Call carbajal within reach.
[2022-12-31 04:40] VITALS: BP 100/53
[2022-12-31] MEDS: DEXAMETHASONE SOD PHOSPHATE 4 MG INJ IV SCH ×3 (05:25→21:49)
[2022-12-31] MEDS: LEVOTHYROXINE SODIUM 150 MCG TABLET PO SCH (06:15)
[2022-12-31] MEDS: PANTOPRAZOLE SODIUM 40 MG TABLET.DR PO SCH (06:15)
--- NOTE | 2022-12-31 06:21 | NUR ---
RUE midline not working, unable to flush, comber setter aware. #22 heplock placed on right hand, flushed and patent.
[2022-12-31] MEDS: BLOOD SUGAR DIAGNOSTIC 1 EACH STRIP VI SCH ×4 (06:33→21:47)
[2022-12-31] MEDS: INSULIN REGULAR, HUMAN 300 UNIT/3 ML VIAL SQ PRN ×4 (07:31→21:40)
[2022-12-31 07:46] VITALS: BP 115/63
[2022-12-31 08:46] LABS: HEMATOCRIT 32.4 % (31.2-41.9); MEAN CORPUSCULAR VOLUME 91.3 fL (75.5-95.3); PLATELET COUNT (AUTO) 302 K/uL (179-408)
[2022-12-31 09:20] LABS: CREATININE 1.2 mg/dL (0.6-1.3); MAGNESIUM 2.1 mg/dL (1.8-2.4); PHOSPHOROUS 4.3 mg/dL (2.5-4.9); POTASSIUM 4.8 mmol/L (3.5-5.1)
[2022-12-31] MEDS: GLUCERNA SHAKE 237 ML CAN PO SCH ×2 (09:38→17:22)
[2022-12-31] MEDS: PROTEIN SUPPLEMENT (PROSTAT) 30 ML LIQUID PO SCH (09:39)
[2022-12-31] MEDS: MODAFINIL 100 MG TABLET PO SCH (09:39)
[2022-12-31] MEDS: CYANOCOBALAMIN 100 MCG TABLET PO SCH (09:40)
[2022-12-31] MEDS: CHOLECALCIFEROL 1,000 UNIT TABLET PO SCH (09:40)
[2022-12-31] MEDS: OXYCODONE HCL 5 MG TABLET PO SCH ×2 (09:40→17:16)
[2022-12-31] MEDS: LIDOCAINE 5% PATCH TD SCH (09:42)
[2022-12-31] MEDS: LINAGLIPTIN 5 MG TABLET PO SCH (09:42)
[2022-12-31] MEDS: MEMANTINE HCL 10 MG TABLET PO SCH ×2 (09:42→17:15)
[2022-12-31] MEDS: FLUCONAZOLE 100 MG TABLET PO SCH (09:42)
[2022-12-31] MEDS: VALPROIC ACID 250 MG/5 ML LIQUID UDC PO SCH ×2 (09:42→17:15)
[2022-12-31] MEDS: METHOCARBAMOL 500 MG TABLET PO SCH ×3 (09:42→17:15)
[2022-12-31] MEDS: MYRBETRIQ 50MG TABLET PO SCH (09:43)
[2022-12-31] MEDS: NEOMY/BACITRAC/POLYMI OINT 28.35 GM TUBE TOP SCH (09:44)
[2022-12-31] MEDS: POTASSIUM CHLORIDE 10 MEQ TAB.PRT.SR PO SCH ×2 (09:44→17:15)
[2022-12-31] MEDS: THERAHONEY GEL 1.5 OZ TUBE TOP SCH (09:45)
[2022-12-31] MEDS: CLOTRIMAZOLE/BETAMET DIPROP CREAM 15 GM TUBE TOP SCH ×2 (09:48→20:15)
[2022-12-31 16:06] VITALS: BP 120/57
--- NOTE | 2022-12-31 16:44 | NUR ---
INTERDISCIPLINARY TEAM CONFERENCE
[2022-12-31] MEDS: METFORMIN XR 500 MG TAB.SR.24H PO SCH (17:16)
--- NOTE | 2022-12-31 18:59 | NUR ---
RECEIVED REPORT FROM LUIS MANUEL CLARKE, TAE SHIFT. PATIENT IS ALERT & ORIENTED X1-2, AND SPEAKS [place]. VITAL SIGNS STABLE. PATIENT HAD COMPLAINT OF PAIN. RN GAVE PAIN MEDICATIONS ORDERED BY MD. PATIENT EXPRESSED COMFORTABLE. PATIENT PARTICIPATES WITH PHYSICAL AND OCCUPATIONAL THERAPY SCHEDULED. PATIENT TOLERATES PO AND DIET WELL. PATIENT'S , DAUGHTER, AND SON VISITED. NO ACUTE DISTRESS. ALL NEEDS MET AT THIS TIME. FALL PRECAUTIONS OBSERVED. CALL LIGHT WITHIN REACH. ENDORSED CARE TO LUIS MANUEL CARDENAS, NOC SHIFT FOR CONTINUATION OF CARE.
[2022-12-31 20:00] VITALS: BP 123/56
[2022-12-31] MEDS: AMITRIPTYLINE HCL 10 MG TABLET PO SCH (20:14)
[2022-12-31] MEDS: DONEPEZIL 10 MG TABLET PO SCH (20:14)
[2022-12-31] MEDS: MIRALAX 17 GM POWD.PACK PO SCH (20:15)
[2022-12-31] MEDS: DOXAZOSIN 2 MG TABLET PO SCH (20:24)
[2023-01-01] MEDS: TEMAZEPAM 15 MG CAPSULE PO PRN (03:23)
[2023-01-01 04:00] VITALS: BP 127/61
[2023-01-01] MEDS: DEXAMETHASONE SOD PHOSPHATE 4 MG INJ IV SCH ×3 (05:23→21:59)
[2023-01-01] MEDS: PANTOPRAZOLE SODIUM 40 MG TABLET.DR PO SCH (06:04)
[2023-01-01] MEDS: LEVOTHYROXINE SODIUM 150 MCG TABLET PO SCH (06:04)
[2023-01-01] MEDS: BLOOD SUGAR DIAGNOSTIC 1 EACH STRIP VI SCH ×4 (06:40→20:12)
[2023-01-01 07:18] VITALS: BP 119/56
[2023-01-01] MEDS: INSULIN REGULAR, HUMAN 300 UNIT/3 ML VIAL SQ PRN ×4 (07:35→20:13)
[2023-01-01] MEDS: POTASSIUM CHLORIDE 10 MEQ TAB.PRT.SR PO SCH ×2 (09:39→16:55)
[2023-01-01] MEDS: CYANOCOBALAMIN 100 MCG TABLET PO SCH (09:39)
[2023-01-01] MEDS: CHOLECALCIFEROL 1,000 UNIT TABLET PO SCH (09:39)
[2023-01-01] MEDS: MODAFINIL 100 MG TABLET PO SCH (09:39)
[2023-01-01] MEDS: METHOCARBAMOL 500 MG TABLET PO SCH ×3 (09:39→16:55)
[2023-01-01] MEDS: LINAGLIPTIN 5 MG TABLET PO SCH (09:40)
[2023-01-01] MEDS: VALPROIC ACID 250 MG/5 ML LIQUID UDC PO SCH ×2 (09:40→16:55)
[2023-01-01] MEDS: LIDOCAINE 5% PATCH TD SCH (09:40)
[2023-01-01] MEDS: OXYCODONE HCL 5 MG TABLET PO SCH ×2 (09:40→17:05)
[2023-01-01] MEDS: MEMANTINE HCL 10 MG TABLET PO SCH ×2 (09:40→16:55)
[2023-01-01] MEDS: NEOMY/BACITRAC/POLYMI OINT 28.35 GM TUBE TOP SCH (09:42)
[2023-01-01] MEDS: MYRBETRIQ 50MG TABLET PO SCH (09:42)
[2023-01-01] MEDS: THERAHONEY GEL 1.5 OZ TUBE TOP SCH (09:43)
[2023-01-01] MEDS: CLOTRIMAZOLE/BETAMET DIPROP CREAM 15 GM TUBE TOP SCH ×2 (09:43→20:30)
[2023-01-01] MEDS: PROTEIN SUPPLEMENT (PROSTAT) 30 ML LIQUID PO SCH (09:47)
[2023-01-01] MEDS: GLUCERNA SHAKE 237 ML CAN PO SCH ×2 (09:47→16:58)
[2023-01-01 15:23] VITALS: BP 122/50
[2023-01-01] MEDS: METFORMIN XR 500 MG TAB.SR.24H PO SCH (17:05)
--- NOTE | 2023-01-01 19:38 | NUR ---
RECEIVED REPORT FROM LUIS MANUEL CARDENAS, TAE SHIFT. PATIENT IS ALERT & ORIENTED X1-2, AND SPEAKS INDIAN. VITAL SIGNS STABLE. PATIENT HAD COMPLAINT OF PAIN. RN GAVE PAIN MEDICATIONS ORDERED BY MD. PATIENT EXPRESSED COMFORTABLE. PATIENT PARTICIPATES WITH PHYSICAL AND OCCUPATIONAL THERAPY SCHEDULED. PATIENT TOLERATES PO AND DIET WELL. PATIENT HAD A SHOWER. PATIENT'S , DAUGHTER, AND SON VISITED. WOUND CARE DRESSINGS COMPLETED. NO ACUTE DISTRESS. ALL NEEDS MET AT THIS TIME. FALL PRECAUTIONS OBSERVED. CALL LIGHT WITHIN REACH. ENDORSED CARE TO LUIS MANUEL RFEITAS, NOC SHIFT FOR CONTINUATION OF CARE.
[2023-01-01 20:00] VITALS: BP 100/61
[2023-01-01] MEDS: AMITRIPTYLINE HCL 10 MG TABLET PO SCH (20:10)
--- NOTE | 2023-01-01 20:15 | NUR ---
fingerstick done and patient blood sugar 257 mg/dl ISS given see emar .
[2023-01-01] MEDS: DONEPEZIL 10 MG TABLET PO SCH (20:27)
[2023-01-01] MEDS: DOXAZOSIN 2 MG TABLET PO SCH (20:27)
[2023-01-01] MEDS: MIRALAX 17 GM POWD.PACK PO SCH (20:27)
--- NOTE | 2023-01-01 20:30 | NUR ---
patient in bed awake alert to name other boykin shes confused to time and placed due medication given with vanilla pudding verbalized she dont like applesauce able to take medication as a whole pill . hob up and aspiration precaution observed .advised to call fir help if needed call light placed with in reach .
[2023-01-01] MEDS: REMEDY ESSENTIAL ZINC PASTE 113 GM TOP PRN (20:31)
[2023-01-02 04:00] VITALS: BP 137/67
--- NOTE | 2023-01-02 06:00 | NUR ---
changed soiled linens and gown turned and reposition off loaded bilateral heels with pillows . warm blanket provided . .
[2023-01-02] MEDS: DEXAMETHASONE SOD PHOSPHATE 4 MG INJ IV SCH (06:05)
[2023-01-02] MEDS: PANTOPRAZOLE SODIUM 40 MG TABLET.DR PO SCH (06:05)
[2023-01-02] MEDS: LEVOTHYROXINE SODIUM 150 MCG TABLET PO SCH (06:05)
[2023-01-02] MEDS: BLOOD SUGAR DIAGNOSTIC 1 EACH STRIP VI SCH ×2 (06:48→12:02)
[2023-01-02] MEDS: INSULIN REGULAR, HUMAN 300 UNIT/3 ML VIAL SQ PRN ×2 (07:32→12:03)
[2023-01-02 08:00] VITALS: BP 140/70
[2023-01-02] MEDS: POTASSIUM CHLORIDE 10 MEQ TAB.PRT.SR PO SCH (09:06)
[2023-01-02] MEDS: CHOLECALCIFEROL 1,000 UNIT TABLET PO SCH (09:06)
[2023-01-02] MEDS: LINAGLIPTIN 5 MG TABLET PO SCH (09:07)
[2023-01-02] MEDS: MODAFINIL 100 MG TABLET PO SCH (09:07)
[2023-01-02] MEDS: OXYCODONE HCL 5 MG TABLET PO SCH (09:07)
[2023-01-02] MEDS: CYANOCOBALAMIN 100 MCG TABLET PO SCH (09:07)
[2023-01-02] MEDS: MEMANTINE HCL 10 MG TABLET PO SCH (09:07)
[2023-01-02] MEDS: METHOCARBAMOL 500 MG TABLET PO SCH ×2 (09:08→13:19)
[2023-01-02] MEDS: LIDOCAINE 5% PATCH TD SCH (09:11)
[2023-01-02] MEDS: VALPROIC ACID 250 MG/5 ML LIQUID UDC PO SCH (09:11)
[2023-01-02] MEDS: NEOMY/BACITRAC/POLYMI OINT 28.35 GM TUBE TOP SCH (09:11)
[2023-01-02] MEDS: MYRBETRIQ 50MG TABLET PO SCH (09:11)
[2023-01-02] MEDS: CLOTRIMAZOLE/BETAMET DIPROP CREAM 15 GM TUBE TOP SCH (09:19)
[2023-01-02] MEDS: THERAHONEY GEL 1.5 OZ TUBE TOP SCH (09:19)
[2023-01-02] MEDS: PROTEIN SUPPLEMENT (PROSTAT) 30 ML LIQUID PO SCH (09:19)
[2023-01-02] MEDS: GLUCERNA SHAKE 237 ML CAN PO SCH (09:19)
--- NOTE | 2023-01-02 15:05 | NUR ---
RECEIVED REPORT FROM LUIS MANUEL FREITAS, NOC SHIFT. PATIENT IS ALERT & ORIENTED X1-2, AND SPEAKS CRO[place]. VITAL SIGNS STABLE. PATIENT HAD COMPLAINT OF PAIN. RN GAVE PAIN MEDICATIONS ORDERED BY MD. PATIENT EXPRESSED COMFORTABLE. PATIENT PARTICIPATES WITH PHYSICAL AND OCCUPATIONAL THERAPY SCHEDULED. PATIENT TOLERATES PO AND DIET WELL. PATIENT'S , DAUGHTER, AND SON-IN-LAW VISITED. WOUND CARE DRESSINGS COMPLETED. DISCHARGE PHOTOS TAKEN. NO ACUTE DISTRESS. IV INFILTRATED. RN REMOVED IV. IV CATHETER INTACT. UNABLE TO GIVE IV MEDICATION. RN NOTIFIES MD. MD MADE AWARE. PATIENT AND PATIENT'S FAMILY MADE AWARE OF DISCHARGE. PATIENT AND FAMILY AGREEABLE TO DISCHARGE. RN PROVIDED DISCHARGE EDUCATION. ALL QUESTIONS ANSWERED. FAMILY VERBALIZED UNDERSTANDING. PATIENT'S BELONGINGS ACCOUNTED FOR AND BELONGINGS LIST SIGNED. RN GAVE REPORT TO EMT [facility]. ALL QUESTIONS ANSWERED. PATIENT LEFT IN STABLE CONDITION WITH [facility].
[2023-01-04] MEDS ORDERED: CLOPIDOGREL 75 MG TABLET PO SCH (09:00)
== END 2023-01-02 15:05 | disposition home health service (06) | DRG 166 ==
PROVIDERS: ADMIT Physical Medicine & Rehabilitation Pain Medicine; ATTEND Physical Medicine & Rehabilitation Pain Medicine
PROC: 0JBL0ZZ Excision of Right Upper Leg Subcutaneous Tissue and Fascia, Open Approach (ICD-10-PCS; principal; 2022-12-17)
PROC: 0JBL0ZZ Excision of Right Upper Leg Subcutaneous Tissue and Fascia, Open Approach (ICD-10-PCS; 2022-12-29)
PROC: 05HA33Z Insertion of Infusion Device into Left Brachial Vein, Percutaneous Approach (ICD-10-PCS; 2022-12-29)
DX: U07.1 COVID-19 (principal); A41.9 Sepsis, unspecified organism; L89.213 Pressure ulcer of right hip, stage 3; G93.41 Metabolic encephalopathy; E43 Unspecified severe protein-calorie malnutrition; G92.8 Other toxic encephalopathy; J12.82 Pneumonia due to coronavirus disease 2019; N17.0 Acute kidney failure with tubular necrosis; I69.354 Hemiplegia and hemiparesis following cerebral infarction affecting left non-dominant side; B48.8 Other specified mycoses; D68.59 Other primary thrombophilia; M62.82 Rhabdomyolysis; Z90.710 Acquired absence of both cervix and uterus; E03.9 Hypothyroidism, unspecified; E11.9 Type 2 diabetes mellitus without complications; E78.5 Hyperlipidemia, unspecified; E11.65 Type 2 diabetes mellitus with hyperglycemia; E86.0 Dehydration; E86.1 Hypovolemia; E87.6 Hypokalemia; J44.9 Chronic obstructive pulmonary disease, unspecified; F01.50 Vascular dementia, unspecified severity, without behavioral disturbance, psychotic disturbance, mood disturbance, and anxiety; G89.29 Other chronic pain; I48.91 Unspecified atrial fibrillation; I69.398 Other sequelae of cerebral infarction; H53.9 Unspecified visual disturbance; K57.30 Diverticulosis of large intestine without perforation or abscess without bleeding; M47.816 Spondylosis without myelopathy or radiculopathy, lumbar region; N31.9 Neuromuscular dysfunction of bladder, unspecified; R62.7 Adult failure to thrive; Z68.30 Body mass index [BMI] 30.0-30.9, adult; E66.9 Obesity, unspecified; Z79.4 Long term (current) use of insulin; Z87.440 Personal history of urinary (tract) infections; Z87.891 Personal history of nicotine dependence; Z90.49 Acquired absence of other specified parts of digestive tract; Z91.81 History of falling; R91.1 Solitary pulmonary nodule; H53.462 Homonymous bilateral field defects, left side; H53.461 Homonymous bilateral field defects, right side; M25.551 Pain in right hip
CPT/HCPCS: 36415; 72110; 72131; 83735; 84100; 85025; 97535-GO-CO; A6209; A6213; C1758; J1100; J1815; J3490; J8540; Q9967